=== PATIENT | male | born 1950 | race Caucasian/White ===

== ENCOUNTER 2017-01-18 07:01 | Inpatient (IN) | payer MEDICARE, OTHER ==
[2017-01-18] VITALS (36 sets, daily range): BP systolic 70–120; BP diastolic 30–62; PULSE 44–106; RESP 0–31; TEMP 92.7; Ht 170.2 cm; Wt 62.0 kg
[~2017-01-18] VITALS: Ht 170.2 cm; Wt 62.0 kg
[~2017-01-18 07:01] MED LIST: ROCURONIUM 50 MG INJ ONE; VECURONIUM 10 MG VIAL ONE
[2017-01-18] MEDS ORDERED: VECURONIUM 100 MG in DEXTROSE 5% 100 ML IV ONE (07:03)
[2017-01-18] MEDS ORDERED: PROPOFOL 100 ML IV STA (07:03)
[2017-01-18] MEDS ORDERED: ASPIRIN 300 MG SUPP PR STA (07:03)
[2017-01-18] MEDS ORDERED: SODIUM CHLORIDE 0.9% 500 ML BAG IV* STA (07:03)
[2017-01-18] MEDS ORDERED: ETOMIDATE 20 MG INJ ONE (07:20)
[2017-01-18 07:24] LABS: ADD SCAN DIFF NO
[2017-01-18 07:30] LABS: ABNORMAL IP MESSAGE 1; BASOPHIL # 0.1 10^3/ul (0.0-0.1); BASOPHILS % 0.9 % (0.0-2.0); EOSINOPHILS # 0.2 10^3/ul (0.0-0.5); EOSINOPHILS % 1.3 % (0.0-7.0); HEMATOCRIT 33.7 % (42.0-52.0); HEMOGLOBIN 10.3 g/dl (14.0-18.0); LYMPHOCYTES # 2.5 10^3/ul (0.8-2.9); LYMPHOCYTES % 19.3 % (15.0-51.0); MEAN CORPUSCULAR HGB CONC 30.6 g/dl (32.0-37.0); MEAN CORPUSCULAR VOLUME 101.5 fl (82.0-101.0); MONOCYTE # 1.1 10^3/ul (0.3-0.9); MONOCYTES % 8.4 % (0.0-11.0); NEUTROPHIL # 8.4 10^3/ul (1.6-7.5); NEUTROPHILS % 65.9 % (39.0-77.0); NUCLEATED RED BLOOD CELLS% 0.2 /100WBC (0.0-0.0); RED BLOOD COUNT 3.32 10^6/ul (4.70-6.10); RED CELL DISTRIBUTION WIDTH 21.2 % (11.5-14.5); WHITE BLOOD COUNT 12.7 10^3/ul (4.8-10.8)
[2017-01-18] MEDS ORDERED: OCULAR LUBRICANT 3.5 GM OPH OINT BOTH EYES ONE (07:30)
[2017-01-18] MEDS ORDERED: VECURONIUM 10 MG VIAL IV ONE (07:30)
[2017-01-18 07:46] LABS: INR 2.35
[2017-01-18 07:47] LABS: PARTIAL THROMBOPLASTIN TIME 49.6 Sec (25.0-35.0)
[2017-01-18 07:48] LABS: ALBUMIN 3.5 g/dl (3.3-4.9); ALBUMIN/GLOBULIN RATIO 1.09; BILIRUBIN,DIRECT 0.1 mg/dl (0.00-0.20); BILIRUBIN,INDIRECT 1.2 mg/dl (0-1.1); BILIRUBIN,TOTAL 1.3 mg/dl (0.2-1.3); CALCIUM 7.7 mg/dl (8.4-10.2); CREATININE 3.63 mg/dl (0.61-1.24); MAGNESIUM 2.6 mg/dl (1.7-2.5); PHOSPHORUS 3.5 mg/dl (2.5-4.9); POTASSIUM 3.4 mmol/L (3.5-5.1); TOTAL PROTEIN 6.7 g/dl (6.1-8.1)
[2017-01-18 08:00] LABS: TROPONIN-I 0.085 ng/ml (0.00-0.12)
[2017-01-18 08:04] LABS: AADO2 Arterial 516.4 mmHg (7.0-24.0); Allen Test ACCEPTAB; Arterial Base Excess -3.6 mmol/L (-3.0-3); Arterial COHb 1.3 % (0.0-3.0); Arterial HCO3 21.8 mmol/L (22.0-26.0); Arterial MetHb 0.4 % (0.0-1.5); Arterial Total Hemglobin 11.3 g/dl (12.0-18.0); MODE VENT - AC
--- NOTE | 2017-01-18 08:16 | RADRPT ---
PROCEDURE: Chest 1 views. CLINICAL INDICATION: Shortness of breath. Hypothermia. TECHNIQUE: AP views of the chest was obtained. COMPARISON: April 24, 2009 FINDINGS: The heart is large. Endotracheal tube has its tip approximately 3.8 cm above the sage. Left-sided dialysis catheter has its tip in the expected location of the distal superior vena cava. Median st ernotomy wires and surgical clips overlie the heart. Replacement heart valve is seen. Central pulm onary vascular congestion and interstitial prominence is seen. Retrocardiac opacity is noted. Scat tered atelectasis is noted in the right lower lobe. Osseous structures are intact. IMPRESSION: Cardiomegaly . Endotracheal tube with its tip approximately 3.8 cm above the sage. Central pulmonary vascular congestion and interstitial prominence in both lungs. Retrocardiac opacity that may reflect left lower lobe atelectasis or infiltrate combined with small pleural effusion. Scattered atelectasis in the right lower lobe. RPTAT: AA .Harsh Koenig MD, Date Time Electronically viewed and signed by .Harsh Koenig MD, on 01/18/2017 08:16 .P/
[2017-01-18 08:42] LABS: PLATELET COUNT 40 10^3/UL (140-415)
--- NOTE | 2017-01-18 08:56 | HP ---
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 admitted following VFib arrest #VFib arrest with ROSC: suspect 2/2 underlying heart disease/CAD with scar tissue into cardiac electrical system; no STEMI on EKG -hypothermia protocol started by ER, to be continued in ICU -insulin drip ordered -cardiology on consult -trending troponin per cardiology rec -TTE ordered -pulm consult given intubation #ESRD on HD: nephrology cs #cirrhosis: judicious fluids #h/o MVR previously on Coumadin -cardiology following #?aspiration pna: empiric abx DVT prophx: SQH and SCDs Critical care time: 60 minutes HPI/ROS Admit Date/Time Admit Date/Time Hx of Present Illness 66 yo M with ESRD on HD, ?CAD sp CABG, h/o MVR, cirrhosis admitted following cardiac arrest. Pt with arrest this AM, EMS called. Pt in VFib at time of ER arrival. sp 2 rounds of epi, electric intervention, converted to AFib. No evidence of STEMI on serial EKGs. Pt intubated and sedated and time of my attempted evaluation. PMH/Family/Social Past Medical History ESRD on HD h/o MVR-->mechanical valve previously on coumadin, stopped 2/2 bleeding complications HTN ?CAD sp CABG cirrhosis cb ascites requiring frequent LVPs Past Surgical History h/o CABG Social History lives in the community with Smoking Status: Unknown if ever smoked Exam/Review of Systems Vital Signs Vitals Vital Signs Date Time Temp Pulse Resp B/P Pulse Ox O2 Delivery O2 Flow Rate FiO2 01/18/17 08:23 83 16 132/51 100 Mechanical Ventilator 01/18/17 07:55 99.0 01/18/17 07:41 100 Exam Exam intubated and sedated ET tube in mouth irreg irreg +HD catheter in L chest lungs clear abd soft no rashes no le edema +sternotomy scar labs reviewed,.ChemP without sig electrolyte derangement .Initial troponin negative. Labs Result Diagram: 01/18/17 0701 01/18/17 0701 MAGALI FROST MD Jan 18, 2017 08:55
--- NOTE | 2017-01-18 08:56 | RADRPT ---
PROCEDURE: CT brain without contrast CLINICAL INDICATION: Hypothermia. Cardiac arrest. Altered mental status. TECHNIQUE: CT of the brain without contrast performed on a multidetector CT scanner, with multiplan ar reformats. One or more of the following dose reduction techniques were used: Automated exposure control, adjustment in mA and / or kV according to patient size, use of iterative reconstructive patrick hnique. CTDIvol = 45 mGy; DLP = 900 mGy-cm. COMPARISON: None available FINDINGS: No acute intracranial hemorrhage is identified. No extra-axial fluid collection is seen. There is no mass effect. No midline shift is identified. The ventricles and sulci are mildly enlarged compatible with generalized volume loss. There are mild areas of hypodensity in the periventricular - deep white matter which are nonspecific but suggestive of chronic small vessel ischemic changes. Maria-white differentiation appears preser khris. There are a few scattered peripheral bilateral cerebral calcifications. Atherosclerotic calcifications of the proximal intracranial arteries are noted. Calvarium and skull base appear intact. There is scattered bilateral ethmoid air cell mucosal thick ening and mild mucosal thickening of fluid in the right sphenoid sinus. IMPRESSION: 1. No acute intracranial pathology identified. 2. Mild generalized volume loss, with mild chronic small vessel ischemic changes. 3. Punctate cerebral calcifications, which may be post infectious/inflammatory, sequela of neurocys ticercosis. RPTAT: EE .Sumeet Case MD, MD Date Time Electronically viewed and signed by .Sumeet Case MD, on 01/18/2017 08:56 .O/
[2017-01-18] MEDS ORDERED: FAMOTIDINE 20 MG TAB PO SCH (09:00)
[2017-01-18] MEDS ORDERED: ALBUTEROL/IPRATROPIUM (NEB) 3 ML AMP NEB SCH (09:00)
[2017-01-18] MEDS ORDERED: ALBUTEROL 18 GM INHALER INH SCH (09:00)
[2017-01-18] MEDS ORDERED: MIDAZOLAM (DRIP) 50 mg/50 mL 50 ML IV SCH (09:00)
[2017-01-18] MEDS ORDERED: HYDROCODONE/APAP (5/325) TAB PO PRN (09:00)
[2017-01-18] MEDS ORDERED: ACETAMINOPHEN 650MG/20.3ML CUP PO PRN ×2 (09:00→20:00)
[2017-01-18] MEDS ORDERED: ALBUTEROL/IPRATROPIUM (NEB) 3 ML AMP NEB PRN (09:00)
[2017-01-18] MEDS ORDERED: ONDANSETRON 4 MG TAB PO PRN (09:00)
[2017-01-18] MEDS ORDERED: ENOXAPARIN 40 MG/0.4 ML SYG SC SCH (09:00)
--- NOTE | 2017-01-18 09:30 | RADRPT ---
PROCEDURE: XR Chest AP portable CLINICAL INDICATION: Post intubation TECHNIQUE: An AP portable radiograph of the chest was submitted. COMPARISON: Study done earlier on the same date FINDINGS: Support Hardware: The endotracheal tube and the left venous access catheter are stable in positionin g and now in the right jugular central venous catheter is been placed with the tip projecting to the superior vena cava. Cardiovascular: There is again evidence of a previous midline sternotomy and prosthetic valve replac ement. The heart remains moderately enlarged and the pulmonary vasculature appears congested. Lung [place]: Interstitial infiltrate is again seen extend from the prior of the regions bilaterally and there is again consolidation seen to the heart with in the left lower lobe. Pleural Spaces: Small bilateral pleural fluid accumulations are again evident but no pneumothorax is identified. Osseous Structures: The osseous structures appear intact. Soft Tissues: The soft tissues appear unremarkable. IMPRESSION: 1. The endotracheal tube and the left sided venous access catheter stable in positioning and now a been a right jugular central venous catheters been satisfactorily placed. 2. There is again evidence of a previous midline sternotomy and prosthetic aortic valve replacement with persistent moderate cardiomegaly and pulmonary vascular congestion. 3. Interstitial infiltrates suspicious for interstitial edema with persistent consolidation involvi ng the left lower lobe. 4. A small left pleural fluid accumulation is again evident and now there appears to be a small rig ht pleural fluid accumulation. No pneumothorax is identified. Physician Hernan Date Time Electronically viewed and signed by Physician Hernan on 01/18/2017 09:29 /
--- NOTE | 2017-01-18 09:31 | ERA ---
ER Documentation Chief Complaint Date/Time DATE: 01/18/17 TIME: 09:24 Chief Complaint BIB RA CARDIAC ARREST (ROSC) HPI 66-year-old male brought in by ambulance after a witnessed cardiac arrest. There was immediate bystander CPR by his family. Patient was initially in V. fib. He was shocked and went into PEA rhythm, then atrial fibrillation with return of spontaneous circulation. 2 rounds of epi were given. History is otherwise limited as the family is not here and the patient is unresponsive. ROS Limited as the patient is unconscious and intubated Allergies Allergies: Coded Allergies: Penicillins (Verified Allergy, Unknown, 01/18/17) PMhx/Soc History of Surgery: Yes (CABG, aortic valve replacement) Hx Cardiac Disorders: Yes (Hypertension, CAD) Hx Miscellaneous Medical Probl: Yes (ESRD on HD, cirrhosis) Hx Alcohol Use: No Hx Substance Use: Yes (script meds) Hx Tobacco Use: No Smoking Status: Unknown if ever smoked FmHx Family History: other (Unable to obtain) Physical Exam Vitals Vital Signs Date Time Temp Pulse Resp B/P Pulse Ox O2 Delivery O2 Flow Rate FiO2 01/18/17 11:28 90.1 66 16 113/51 100 Mechanical Ventilator 01/18/17 10:49 53 16 143/45 100 Mechanical Ventilator 01/18/17 10:29 60 27 100 70 01/18/17 10:15 60 16 132/50 100 Mechanical Ventilator 01/18/17 09:41 72 14 118/49 Mechanical Ventilator 01/18/17 09:24 76 118/49 01/18/17 09:12 98.6 79 14 118/49 100 Mechanical Ventilator 01/18/17 08:23 83 16 132/51 100 Mechanical Ventilator 01/18/17 07:55 99.0 86 16 132/51 100 Mechanical Ventilator 01/18/17 07:41 96 24 100 100 01/18/17 07:06 144 24 173/64 100 Mechanical Ventilator 01/18/17 07:03 98.3 129 44 174/64 100 Physical Exam VITAL SIGNS: GENERAL: Patient is lying on gurney and is unresponsive, cachectic, chronically ill-appearing HEAD: Head is normocephalic. No evidence of trauma. No scalp or facial swelling EYES: Pupils are unequal, right is 3 mm, left is 2 mm. They are nonreactive. Conjunctive a normal ENT: Oropharynx and nasopharynx are clear, ET tube present, poor dentition NECK: Supple. No masses, JVD noted. Left chest with HD cath RESPIRATORY: Breath sounds equal bilaterally with bagging CV: Heart sounds are present. Tachycardic, irregular rhythm. There are palpable 2+ carotid and radial pulses ABDOMEN: Soft, non-distended. Reducible umbilical hernia noted EXTREMITIES: No deformity SKIN: No jaundice. No diaphoresis NEUROLOGIC: Not alert. Grimaces when Garcia catheter placed Result Diagram: 01/18/17 0701 01/18/17 0701 Results 24 hrs Laboratory Tests Test 01/18/17 07:01 01/18/17 07:03 White Blood Count 12.710^3/ul Red Blood Count 3.3210^6/ul Hemoglobin 10.3g/dl Hematocrit 33.7% Mean Corpuscular Volume 101.5fl Mean Corpuscular Hemoglobin 31.0pg Mean Corpuscular Hemoglobin Concent 30.6g/dl Red Cell Distribution Width 21.2% Platelet Count 4010^3/UL Mean Platelet Volume fl Neutrophils % 65.9% Lymphocytes % 19.3% Monocytes % 8.4% Eosinophils % 1.3% Basophils % 0.9% Nucleated Red Blood Cells % 0.2/100WBC Neutrophils # 8.410^3/ul Lymphocytes # 2.510^3/ul Monocytes # 1.110^3/ul Eosinophils # 0.210^3/ul Basophils # 0.110^3/ul Nucleated Red Blood Cells # 0.010^3/ul Prothrombin Time 26.0Sec Prothrombin Time Ratio 2.0 INR International Normalized Ratio 2.35 Activated Partial Thromboplast Time 49.6Sec Sodium Level 144mmol/L Potassium Level 3.4mmol/L Chloride Level 102mmol/L Carbon Dioxide Level 24mmol/L Anion Gap 21 Blood Urea Nitrogen 44mg/dl Creatinine 3.63mg/dl Glucose Level 178mg/dl Calcium Level 7.7mg/dl Phosphorus Level 3.5mg/dl Magnesium Level 2.6mg/dl Total Bilirubin 1.3mg/dl Direct Bilirubin 0.10mg/dl Indirect Bilirubin 1.2mg/dl Aspartate Amino Transf (AST/SGOT) 35IU/L Alanine Aminotransferase (ALT/SGPT) 28IU/L Alkaline Phosphatase 192IU/L Troponin I 0.085ng/ml Total Protein 6.7g/dl Albumin 3.5g/dl Globulin 3.20g/dl Albumin/Globulin Ratio 1.09 Blood Gas Specimen Source Blood arterial Arterial Blood Date Drawn 01/18/2017 7:56:37 AM Arterial Blood pH (Temp corrected) 7.349 Arterial Blood pCO2 (Temp correct) 40.4mmhg Arterial Blood pO2 (Temp corrected) 156.2mmHG Arterial Blood HCO3 21.8mmol/L Arterial Blood Base Excess -3.6mmol/L Arterial Blood Oxygen Saturation 98.7mmHG Vinay Test ACCEPTAB Arterial Blood Gas Puncture Site Right Radial Arterial Blood Carboxyhemoglobin 1.3% Arterial Blood Methemoglobin 0.4% Blood Gas A-a O2 Differential 516.4mmHg Oxyhemoglobin Percent 97.0% Total Hemoglobin 11.3g/dl Blood Gas Temperature 37.0C Blood Gas Respiration Rate 14.0 Blood Gas Actual Respiration Rate 24 Blood Gas Modality VENT - AC FiO2 100.0% Blood Gas Tidal Volume 500.0mL Blood Gas Low PEEP Setting 5.0cmH2O Blood Gas Notified Whom M.D. Blood Gas Notified Time 01/18/2017 8:04:24 AM Current Medications Medications (Trade) Dose Ordered Sig/Corie Route PRN Reason Start Time Stop Time Status Last Admin Dose Admin Sodium Chloride 500 ml 500 ml ONCE STAT IV* 01/18/17 07:03 01/18/17 07:07 DC 01/18/17 07:03 Propofol (Diprivan) 100 ml @ 0 mls/hr ONCE STAT IV 01/18/17 07:03 01/18/17 07:07 DC 01/18/17 08:09 Aspirin (Aspirin) 300 mg ONCE STAT SC 01/18/17 07:03 01/18/17 07:07 DC 01/18/17 08:55 Eye Lubricant (Akwa Oint) 1 applic ONCE ONCE BOTH EYES 01/18/17 07:30 01/18/17 07:31 DC Vecuronium [place] 7 mg 7 mg ONCE ONCE IV 01/18/17 07:30 01/18/17 07:31 DC 01/18/17 07:30 Vecuronium [place]/Dextrose (Norcuron/D5W) 100 ml @ 0 mls/hr Q0M ONCE IV 01/18/17 07:03 01/18/17 07:07 DC 01/18/17 08:32 Etomidate (Amidate) 20 mg STK-MED ONCE .ROUTE 01/18/17 07:20 01/18/17 07:21 DC Ondansetron HCl (Zofran Tab) 4 mg Q6H PRN PO NAUSEA AND/OR VOMITING 01/18/17 09:00 Albuterol/ Ipratropium (Duoneb) 3 ml Q4H RESP THERAPY NEB 01/18/17 09:00 01/18/17 09:54 DC Albuterol/ Ipratropium (Duoneb) 3 ml Q2H RESP THERAPY PRN NEB SHORTNESS OF BREATH 01/18/17 09:00 Albuterol (Ventolin Hfa) 4 puff Q4H RESP THERAPY INH 01/18/17 09:00 01/18/17 09:22 DC Acetaminophen (Tylenol Liquid) 650 mg Q6H PRN PO PAIN LEVEL 1-3 OR FEVER 01/18/17 09:00 Acetaminophen/ Hydrocodone Bitart ([place] (5/325)) 1 tab Q6H PRN PO PAIN LEVEL 4-6 01/18/17 09:00 Famotidine (Pepcid) 20 mg DAILY PO 01/18/17 09:00 Enoxaparin Sodium 40 mg 40 mg DAILY SC 01/18/17 09:00 01/18/17 09:23 DC Propofol 100 ml @ 2.1 mls/hr PER PROTOCOL IV 01/18/17 09:00 Midazolam HCl (Versed) 50 ml @ 1 mls/hr PER PROTOCOL IV 01/18/17 09:00 Heparin Sodium (Porcine) (Heparin (5000 Units/0.5 ml)) 5,000 unit Q12 SC 01/18/17 10:00 01/18/17 10:47 DC Albuterol (Ventolin Hfa) 4 puff Q2H RESP THERAPY PRN INH wheezing 01/18/17 10:00 Carvedilol (Coreg) 3.125 mg BID PO 01/18/17 11:00 Procedures/MDM EKG #1: Rate/Rhythm: Wide-complex rhythm at 142 bpm QRS, ST, T-waves: Left axis deviation, right bundle branch block, nonspecific ST, T changes Impression: No evidence of acute ischemia, wide-complex tachycardia EKG #2: Rate/Rhythm: Atrial fibrillation with RVR at 112 bpm QRS, ST, T-waves: Left axis deviation, nonspecific intraventricular block, nonspecific T-wave abnormalities Impression: No evidence of STEMI, atrial fibrillation with RVR EKG #3: Rate/Rhythm: A. fib at 80 bpm QRS, ST, T-waves: Left axis deviation, nonspecific intraventricular block, lateral nonspecific T-wave abnormality Impression: No evidence STEMI, A. fib EKG #4: Rate/Rhythm: Normal sinus rhythm at 74 bpm QRS, ST, T-waves: Left axis deviation, nonspecific intraventricular block, lateral T-wave abnormality Impression: No evidence of arrhythmia, no STEMI CT head shows no acute abnormalities, chronic changes seen Postintubation chest x-ray: IMPRESSION: Cardiomegaly . Endotracheal tube with its tip approximately 3.8 cm above the sage. Central pulmonary vascular congestion and interstitial prominence in both lungs. Retrocardiac opacity that may reflect left lower lobe atelectasis or infiltrate combined with small pleural effusion. Scattered atelectasis in the right lower lobe. .Harsh oKenig MD, MD Date Time Electronically viewed and signed by .Harsh Koenig MD, MD on 01/18/2017 08:16 Post central line chest x-ray: IMPRESSION: 1. The endotracheal tube and the left sided venous access catheter stable in positioning and now a been a right jugular central venous catheters been satisfactorily placed. 2. There is again evidence of a previous midline sternotomy and prosthetic aortic valve replacement with persistent moderate cardiomegaly and pulmonary vascular congestion. 3. Interstitial infiltrates suspicious for interstitial edema with persistent consolidation involving the left lower lobe. 4. A small left pleural fluid accumulation is again evident and now there appears to be a small right pleural fluid accumulation. No pneumothorax is identified. Physician Hernan Date Time Electronically viewed and signed by Physician Hernan on 01/18/2017 09:29 Labs CBC: Mild leukocytosis, anemia, thrombocytopenia CMP: Mild hypokalemia, findings of end-stage renal disease Troponin within normal limits UA: no evidence of infection Endotracheal Intubation by me: Pre assessment performed. See preceding note for details. Pre-oxygenation performed with 100% oxygen RSI: Performed w/o complication or hypoxic events. Medications as ordered. Blade: Glidescope 4 ET Tube: 23 cm Depth: 7.5 cm at the lip Intubation confirmed by colorimetric CO2, equal breath sounds, quiet over the stomach. Chest X-ray 1V Interpreted by me: 3.8 cm above the sage ET tube. Normal soft tissue, No pneumothorax. MDM Patient is presenting after a V. fib arrest with ROSC. After he arrived, he had pulses. His blood pressure was normal but he was tachycardic. Initially his rhythm was a wide-complex rhythm which converted without intervention to A. fib then normal sinus rhythm. IV fluids were started. I checked his ET tube placed prior to arrival and the balloon was above the vocal cords. He had to be reintubated. He never became hypoxic while here. The etiology of his cardiac arrest is unclear at this time. All reversible causes were considered. There are no significant electrolyte abnormalities. there is no evidence of STEMI but he may have ACS nonetheless. I have a lower suspicion for aortic dissection, septic shock, or pulmonary embolism, but these remain on the differential. Rectal aspirin given. Hypothermia protocol was started. The patient was placed on propofol and vecuronium. I spoke with the admitting team , and they consulted cardiology and nephrology. Family was updated on the patient's condition and plan. Critical Care Time: 40 minutes Treatments/Evaluations: Close monitoring and treatment of unstable vital signs, cardiorespiratory, and neurologic status, while maintaining tight balance of fluid, respiratory, and cardiac interventions. This time includes discussing the case with the patient and the patients family. This time does not include all procedures stated elsewhere in this record. This time also includes reviewing old records, labs and radiological studies. This time includes examining and re-examining the patient. Additionally, this time also includes arranging care with admitting and consulting physicians. Accepting Care Team: Current data and ongoing care discussed. Time: Time of admission Primary Provider: Gisele Campa Consulting: Arnie Outstanding Data: none Departure Diagnosis: Primary Impression: Cardiac arrest Additional Impression: End stage renal disease Condition: Critical IRAJ VALE MD Jan 18, 2017 09:31
[2017-01-18] MEDS ORDERED: HEPARIN 5,000 UNIT/0.5 ML VIAL SC SCH (10:00)
[2017-01-18] MEDS ORDERED: ALBUTEROL 18 GM INHALER INH PRN (10:00)
--- NOTE | 2017-01-18 10:48 | CONS ---
Date/Time of Note Date/Time of Note DATE: 01/18/17 TIME: 10:23 Assessment/Plan Assessment/Plan Chief Complaint/Hosp Course VF cardiac arrest: No STEMI by EKG. He did not have CAD as of 2008 but certainly this could have changed. Unclear if he has a cardiomyopathy. If he does, he may have had VT which degenerated to VF. His initial EKG may have been MMVT. He is also in mild heart failure by CXR. He is currently on hypothermic protocol and there is no emergent reason for cardiac cath. Once he completes hypothermia and if he wakes up, he will need a cardiac cath for evaluation and eventually an ICD. ?MMVT: first EKG is concerning for VT. Options are limited with his liver cirrhosis and both amio and lidocaine are not great options. Acute on chronic ?systolic vs diastolic heart failure Mechanical AVR 2007 and 2008: apparently not on coumadin due to bleeding. He is autoanticoagulated at this time with INR 2.3 ESRD on HD Liver cirrhosis from presumed alcohol Thrombocytopenia Coagulopathy: INR 2.3 -if recurrent VT/VF, may consider lidocaine but also poor option with cirrhosis -echo -trend trops -already received ASA. If trops negative, may need to hold further doses with coagulopathy and thrombocytopenia -low dose coreg as bradycardic already on hypothermia -no statin yet with cirrhosis -further management plan based on improvement in mental status Problems: Consultation Date/Type/Reason Admit Date/Time Date of Consultation: Jan 18, 2017 Type of Consultation: Cardiology Reason for Consultation Cardiac arrest Referring Provider: MAGALI FROST MD Hx of Present Illness 66 yo M with a h/o mechanical AVR 2007 and redo 2008 for endocarditis, ESRD on HD, ?alcoholic cirrhosis, thrombocytopenia,active tobacco use, who presented with cardiac arrest. The pt's heard a loud thump which woke her up and when she went to the living room she saw her on the coffee table. Her son began CPR as he was unresponsive. When paramedics came, he was found tyo be in Vfib and was defibrillated. He was given two rounds of epi and eventually had ROSC. In the ER he had a wide complex tachycardia then converted to afib with controlled rates. He is currently on hypothermic protocol as he did not recover his mental status. The tells me that he was "not feeling well" yesterday but that he always says that so they assumed nothing was new. He had not complained of chest pain or SOB. She also tells me that he has had two cardiac caths which both showed normal coronaries (last was 2008). They are unaware of his EF. The pt is not on coumadin despite his mechanical valve as he has had bleeding in the past. INR here is 2.3 likely from cirrhosis unable to obtain Past Medical History per hPI Social History Smoking Status: Unknown if ever smoked Exam/Review of Systems Vital Signs Vitals Vital Signs Date Time Temp Pulse Resp B/P Pulse Ox O2 Delivery O2 Flow Rate FiO2 01/18/17 09:41 72 14 118/49 Mechanical Ventilator 01/18/17 09:12 98.6 100 01/18/17 07:41 100 Exam Constitutional: No alert Head: normocephalic Neck: No jvd (unable to assess) Respiratory: diminished breath sounds, No clear to auscultation Cardiovascular: edema (1+), other (mechanical S2), systolic murmur (2/6 NISREEN), No regular rate and rhythm (irregular) Gastrointestinal: soft, No distended Extremities: cyanosis, other (cool from hypothermia ) Neurological: No nl mental status, No nl speech Results EKG on presentation: wide complex RBBB rhythm at ~150 bpm. The QRS morphology is different form his baseline which is a nonspecific conduction delay Repeat EKGs show afib with RVR and afib with controlled rates. nonspecific IVCD , no ST elevation Result Diagram: 01/18/17 0701/18/17 0701 Results 24 hrs Laboratory Tests Test 01/18/17 07:01 01/18/17 07:03 White Blood Count 12.7 H Red Blood Count 3.32 L Hemoglobin 10.3 L Hematocrit 33.7 L Mean Corpuscular Volume 101.5 H Mean Corpuscular Hemoglobin 31.0 Mean Corpuscular Hemoglobin Concent 30.6 L Red Cell Distribution Width 21.2 H Platelet Count 40 L Mean Platelet Volume Neutrophils % 65.9 Lymphocytes % 19.3 Monocytes % 8.4 Eosinophils % 1.3 Basophils % 0.9 Nucleated Red Blood Cells % 0.2 H Neutrophils # 8.4 H Lymphocytes # 2.5 Monocytes # 1.1 H Eosinophils # 0.2 Basophils # 0.1 Nucleated Red Blood Cells # 0.0 Prothrombin Time 26.0 H Prothrombin Time Ratio 2.0 INR International Normalized Ratio 2.35 Activated Partial Thromboplast Time 49.6 H Sodium Level 144 Potassium Level 3.4 L Chloride Level 102 Carbon Dioxide Level 24 Anion Gap 21 H Blood Urea Nitrogen 44 H Creatinine 3.63 H Glucose Level 178 Calcium Level 7.7 L Phosphorus Level 3.5 Magnesium Level 2.6 H Total Bilirubin 1.3 Direct Bilirubin 0.10 Indirect Bilirubin 1.2 H Aspartate Amino Transf (AST/SGOT) 35 Alanine Aminotransferase (ALT/SGPT) 28 Alkaline Phosphatase 192 H Troponin I 0.085 Total Protein 6.7 Albumin 3.5 Globulin 3.20 Albumin/Globulin Ratio 1.09 Blood Gas Specimen Source Blood arterial Arterial Blood Date Drawn 01/18/2017 7:56:37 AM Arterial Blood pH (Temp corrected) 7.349 L Arterial Blood pCO2 (Temp correct) 40.4 Arterial Blood pO2 (Temp corrected) 156.2 H Arterial Blood HCO3 21.8 L Arterial Blood Base Excess -3.6 L Arterial Blood Oxygen Saturation 98.7 H Vinay Test ACCEPTAB Arterial Blood Gas Puncture Site Right Radial Arterial Blood Carboxyhemoglobin 1.3 Arterial Blood Methemoglobin 0.4 Blood Gas A-a O2 Differential 516.4 H Oxyhemoglobin Percent 97.0 Total Hemoglobin 11.3 L Blood Gas Temperature 37.0 Blood Gas Respiration Rate 14.0 Blood Gas Actual Respiration Rate 24 Blood Gas Modality VENT - AC FiO2 100.0 Blood Gas Tidal Volume 500.0 Blood Gas Low PEEP Setting 5.0 Blood Gas Notified Whom M.D. Blood Gas Notified Time 01/18/2017 8:04:24 AM Medications Medications Current Medications Ondansetron HCl (Zofran Tab) 4 mg Q6H PRN PO NAUSEA AND/OR VOMITING; Start at 09:00 Acetaminophen (Tylenol Liquid) 650 mg Q6H PRN PO PAIN LEVEL 1-3 OR FEVER; Start 01/18/17 at 09:00 Acetaminophen/ Hydrocodone Bitart ([place] (5/325)) 1 tab Q6H PRN PO PAIN LEVEL 4 -6; Start 01/18/17 at 09:00 Famotidine (Pepcid) 20 mg DAILY PO ; Start 01/18/17 at 09:00 Heparin Sodium (Porcine) (Heparin (5000 Units/0.5 ml)) 5,000 unit Q12 SC ; Start 01/18/17 at 10:00 SILVERIO MCMAHAN Jan 18, 2017 10:35
--- NOTE | 2017-01-18 12:41 | CONS ---
Date/Time of Note Date/Time of Note DATE: 01/18/17 TIME: 12:37 Assessment/Plan Assessment/Plan Chief Complaint/Hosp Course ESRD on hd- with pulm edema on cxr. likely cardiogenic. unclear if producing urine will dialyze cautiously. hd arranged in advance. monitor with possible daily hd. all meds dosed ok. Resp failure: on vent. pulm fu VF cardiac arrest: No STEMI by EKG. He did not have CAD as of 2008 but certainly this could have changed. Unclear if he has a cardiomyopathy. If he does, he may have had VT which degenerated to VF. His initial EKG may have been MMVT. He is also in mild heart failure by CXR. He is currently on hypothermic protocol and there is no emergent reason for cardiac cath. Once he completes hypothermia and if he wakes up, he will need a cardiac cath for evaluation and eventually an ICD. ?MMVT: first EKG is concerning for VT. Options are limited with his liver cirrhosis and both amio and lidocaine are not great options. Acute on chronic ?systolic vs diastolic heart failure Mechanical AVR 2007 and 2008: apparently not on coumadin due to bleeding. He is autoanticoagulated at this time with INR 2.3 Liver cirrhosis from presumed alcohol Thrombocytopenia Coagulopathy: INR 2.3 Problems: Consultation Date/Type/Reason Admit Date/Time Hx of Present Illness 66-year-old male brought in by ambulance after a witnessed cardiac arrest. There was immediate bystander CPR by his family. Patient was initially in V. fib. He was shocked and went into PEA rhythm, then atrial fibrillation with return of spontaneous circulation. 2 rounds of epi were given. History is otherwise limited as the family is not here and the patient is unresponsive. Noted that last had hd yesterday. Still in ED awaiting transfer to icu. noted Harry fernandes. ROS Limited as the patient is unconscious and intubated Allergies Allergies: Coded Allergies: Penicillins (Verified Allergy, Unknown, 01/18/17) PMhx/Soc History of Surgery: Yes (CABG, aortic valve replacement) Hx Cardiac Disorders: Yes (Hypertension, CAD) Hx Miscellaneous Medical Probl: Yes (ESRD on HD, cirrhosis) Hx Alcohol Use: No Hx Substance Use: Yes (script meds) Hx Tobacco Use: No Smoking Status: Unknown if ever smoked FmHx Family History: other (Unable to obtain) Social History Smoking Status: Unknown if ever smoked Exam/Review of Systems Vital Signs Vitals Vital Signs Date Time Temp Pulse Resp B/P Pulse Ox O2 Delivery O2 Flow Rate FiO2 01/18/17 12:24 56 16 131/46 100 Mechanical Ventilator 01/18/17 11:28 90.1 01/18/17 10:29 70 Results Result Diagram: 01/18/17 0701 01/18/17 0701 Results 24 hrs Laboratory Tests Test 01/18/17 07:01 01/18/17 07:03 White Blood Count 12.7 H Red Blood Count 3.32 L Hemoglobin 10.3 L Hematocrit 33.7 L Mean Corpuscular Volume 101.5 H Mean Corpuscular Hemoglobin 31.0 Mean Corpuscular Hemoglobin Concent 30.6 L Red Cell Distribution Width 21.2 H Platelet Count 40 L Mean Platelet Volume Neutrophils % 65.9 Lymphocytes % 19.3 Monocytes % 8.4 Eosinophils % 1.3 Basophils % 0.9 Nucleated Red Blood Cells % 0.2 H Neutrophils # 8.4 H Lymphocytes # 2.5 Monocytes # 1.1 H Eosinophils # 0.2 Basophils # 0.1 Nucleated Red Blood Cells # 0.0 Prothrombin Time 26.0 H Prothrombin Time Ratio 2.0 INR International Normalized Ratio 2.35 Activated Partial Thromboplast Time 49.6 H Sodium Level 144 Potassium Level 3.4 L Chloride Level 102 Carbon Dioxide Level 24 Anion Gap 21 H Blood Urea Nitrogen 44 H Creatinine 3.63 H Glucose Level 178 Calcium Level 7.7 L Phosphorus Level 3.5 Magnesium Level 2.6 H Total Bilirubin 1.3 Direct Bilirubin 0.10 Indirect Bilirubin 1.2 H Aspartate Amino Transf (AST/SGOT) 35 Alanine Aminotransferase (ALT/SGPT) 28 Alkaline Phosphatase 192 H Troponin I 0.085 Total Protein 6.7 Albumin 3.5 Globulin 3.20 Albumin/Globulin Ratio 1.09 Blood Gas Specimen Source Blood arterial Arterial Blood Date Drawn 01/18/2017 7:56:37 AM Arterial Blood pH (Temp corrected) 7.349 L Arterial Blood pCO2 (Temp correct) 40.4 Arterial Blood pO2 (Temp corrected) 156.2 H Arterial Blood HCO3 21.8 L Arterial Blood Base Excess -3.6 L Arterial Blood Oxygen Saturation 98.7 H Vinay Test ACCEPTAB Arterial Blood Gas Puncture Site Right Radial Arterial Blood Carboxyhemoglobin 1.3 Arterial Blood Methemoglobin 0.4 Blood Gas A-a O2 Differential 516.4 H Oxyhemoglobin Percent 97.0 Total Hemoglobin 11.3 L Blood Gas Temperature 37.0 Blood Gas Respiration Rate 14.0 Blood Gas Actual Respiration Rate 24 Blood Gas Modality VENT - AC FiO2 100.0 Blood Gas Tidal Volume 500.0 Blood Gas Low PEEP Setting 5.0 Blood Gas Notified Whom M.D. Blood Gas Notified Time 01/18/2017 8:04:24 AM Medications Medications Current Medications Ondansetron HCl (Zofran Tab) 4 mg Q6H PRN PO NAUSEA AND/OR VOMITING; Start at 09:00 Acetaminophen (Tylenol Liquid) 650 mg Q6H PRN PO PAIN LEVEL 1-3 OR FEVER; Start 01/18/17 at 09:00 Acetaminophen/ Hydrocodone Bitart ([place] (5/325)) 1 tab Q6H PRN PO PAIN LEVEL 4 -6; Start 01/18/17 at 09:00 Famotidine (Pepcid) 20 mg DAILY PO ; Start 01/18/17 at 09:00 Carvedilol (Coreg) 3.125 mg BID PO ; Start 01/18/17 at 11:00 ANISA KAYE MD Jan 18, 2017 12:41
[2017-01-18 13:29] LABS: ETHANOL < 10.0 mg/dl
--- NOTE | 2017-01-18 13:36 | CONS ---
Date/Time of Note Date/Time of Note DATE: 01/18/17 TIME: 13:23 Assessment/Plan Assessment/Plan Chief Complaint/Hosp Course Assessment /plan 1. Cardiopulmonary arrest likely primary cardiac event. History of aortic valve replacement unclear with a history of ischemic heart disease. Currently not on anticoagulation. -Echocardiogram -Cardiology recommendations -May need dopamine infusion for bradycardia 2. Hypothermia protocol following cardiopulmonary arrest -Continue sedation and paralysis -Insulin drip 3. Hypoxemic respiratory failure secondary to above -Continue mechanical ventilation -Bronchodilators 4. Likely aspiration pneumonia -Broad-spectrum antibiotics 5. Coagulopathy -Questionable underlying cirrhosis incomplete data 6. Encephalopathy, possible anoxic brain injury following cardiac arrest - continue hypothermia protocol -EEG and neuro evaluation if no significant neurological changes after 48 hours 7. End-stage renal failure on hemodialysis -Nephrology consultation -Hemodialysis as tolerated 8. DVT and GI prophylaxis Problems: Consultation Date/Type/Reason Admit Date/Time Date of Consultation: Jan 18, 2017 Type of Consultation: Pulmonary ICU Reason for Consultation Cardiac arrest Hx of Present Illness 66-year-old gentleman with history of mechanical aortic valve replacement with redo in 2008 secondary to endocarditis found unresponsive by today. Patient had witnessed collapse. Son initiated CPR and in the field and 911 was called. On arrival patient was found to be in ventricular fibrillation requiring defibrillation and epinephrine with spontaneous return of circulation. He has had several arrhythmias in the emergency room including wide complex tachycardia and atrial fibrillation now appears to be in bradycardia on hypothermia protocol. In addition he has a history of EtOH use.Per chart patient has a history of end- stage renal failure on hemodialysis Currently unable to perform Past Medical History End-stage renal failure on hemodialysis History of aortic valve replacement with redo secondary to endocarditis Cirrhosis likely secondary to EtOH Thrombocytopenia. Past Surgical History As above. Social History Smoking Status: Unknown if ever smoked Exam/Review of Systems Vital Signs Vitals Vital Signs Date Time Temp Pulse Resp B/P Pulse Ox O2 Delivery O2 Flow Rate FiO2 01/18/17 12:48 53 16 131/40 100 Mechanical Ventilator 01/18/17 11:28 90.1 01/18/17 10:29 70 Exam GENERAL: Chronically ill-appearing on immediate gentleman intubated on mechanical ventilation currently on vecuronium and propofol VITAL SIGNS: per chart NECK: Supple. No JVD or lymphadenopathy. CARDIAC EXAM: S1, S2. No added sounds or murmurs. CHEST: clear bilaterally, No added sounds, rales or wheezes ABDOMEN: Soft, nontender. No guarding or rebound. EXTREMITIES: No cyanosis, clubbing or edema. NEUROLOGIC: unable to assess Results Chest x-ray pulmonary edema. Result Diagram: 01/18/17 0701/18/17 0701 Results 24 hrs Laboratory Tests Test 01/18/17 07:01 01/18/17 07:03 White Blood Count 12.7 H Red Blood Count 3.32 L Hemoglobin 10.3 L Hematocrit 33.7 L Mean Corpuscular Volume 101.5 H Mean Corpuscular Hemoglobin 31.0 Mean Corpuscular Hemoglobin Concent 30.6 L Red Cell Distribution Width 21.2 H Platelet Count 40 L Mean Platelet Volume Neutrophils % 65.9 Lymphocytes % 19.3 Monocytes % 8.4 Eosinophils % 1.3 Basophils % 0.9 Nucleated Red Blood Cells % 0.2 H Neutrophils # 8.4 H Lymphocytes # 2.5 Monocytes # 1.1 H Eosinophils # 0.2 Basophils # 0.1 Nucleated Red Blood Cells # 0.0 Prothrombin Time 26.0 H Prothrombin Time Ratio 2.0 INR International Normalized Ratio 2.35 Activated Partial Thromboplast Time 49.6 H Sodium Level 144 Potassium Level 3.4 L Chloride Level 102 Carbon Dioxide Level 24 Anion Gap 21 H Blood Urea Nitrogen 44 H Creatinine 3.63 H Glucose Level 178 Calcium Level 7.7 L Phosphorus Level 3.5 Magnesium Level 2.6 H Total Bilirubin 1.3 Direct Bilirubin 0.10 Indirect Bilirubin 1.2 H Aspartate Amino Transf (AST/SGOT) 35 Alanine Aminotransferase (ALT/SGPT) 28 Alkaline Phosphatase 192 H Troponin I 0.085 Total Protein 6.7 Albumin 3.5 Globulin 3.20 Albumin/Globulin Ratio 1.09 Blood Gas Specimen Source Blood arterial Arterial Blood Date Drawn 01/18/2017 7:56:37 AM Arterial Blood pH (Temp corrected) 7.349 L Arterial Blood pCO2 (Temp correct) 40.4 Arterial Blood pO2 (Temp corrected) 156.2 H Arterial Blood HCO3 21.8 L Arterial Blood Base Excess -3.6 L Arterial Blood Oxygen Saturation 98.7 H Vinay Test ACCEPTAB Arterial Blood Gas Puncture Site Right Radial Arterial Blood Carboxyhemoglobin 1.3 Arterial Blood Methemoglobin 0.4 Blood Gas A-a O2 Differential 516.4 H Oxyhemoglobin Percent 97.0 Total Hemoglobin 11.3 L Blood Gas Temperature 37.0 Blood Gas Respiration Rate 14.0 Blood Gas Actual Respiration Rate 24 Blood Gas Modality VENT - AC FiO2 100.0 Blood Gas Tidal Volume 500.0 Blood Gas Low PEEP Setting 5.0 Blood Gas Notified Whom [email or web address] Blood Gas Notified Time 01/18/2017 8:04:24 AM Medications Medications Current Medications Ondansetron HCl (Zofran Tab) 4 mg Q6H PRN PO NAUSEA AND/OR VOMITING; Start at 09:00 Acetaminophen (Tylenol Liquid) 650 mg Q6H PRN PO PAIN LEVEL 1-3 OR FEVER; Start 01/18/17 at 09:00 Acetaminophen/ Hydrocodone Bitart ([place] (5/325)) 1 tab Q6H PRN PO PAIN LEVEL 4 -6; Start 01/18/17 at 09:00 Famotidine (Pepcid) 20 mg DAILY PO ; Start 01/18/17 at 09:00 Carvedilol (Coreg) 3.125 mg BID PO ; Start 01/18/17 at 11:00 AVIVA VILLEGAS MD[facility] Jan 18, 2017 13:33
[2017-01-18] MEDS ORDERED: PIPER-TAZO 2.25 GM (PMX) 50 ML IVPB SCH (14:00)
[2017-01-18 14:04] LABS: ACETONE NEGATIVE (NEGATIVE)
[2017-01-18 14:08] LABS: CK-MB 3.92 ng/ml (0.0-2.4); TROPONIN-I 0.254 ng/ml (0.00-0.12)
[2017-01-18] MEDS ORDERED: Treatment of Hypoglycemia: XX SCH (18:30)
[2017-01-18] MEDS ORDERED: DEXTROSE 50% 50 ML SYRINGE IV PRN ×5 (18:30→20:00)
[2017-01-18] MEDS ORDERED: Discontinue all previous diabetes medication and insulin orders. XX ONE (18:30)
[2017-01-18 18:46] LABS: AADO2 Arterial 255.1 mmHg (7.0-24.0); Allen Test ACCEPTAB; Arterial Base Excess 3.3 mmol/L (-3.0-3); Arterial COHb 0.1 % (0.0-3.0); Arterial Fraction of Oxyhgb 95.2 % (93.0-99.0); Arterial HCO3 28.7 mmol/L (22.0-26.0); Arterial MetHb 0.3 % (0.0-1.5); MODE VENT - AC
[2017-01-18] MEDS ORDERED: DOPamine-D5W 1.6 MG/ML 250 ML ONE (18:51)
[2017-01-18] MEDS: ACCU-CHEK XX SCH ×10 (18:53→23:30)
[2017-01-18] MEDS ORDERED: GLUCOSE GEL 15 GRAM TUBE PO PRN ×2 (19:00)
[2017-01-18] MEDS ORDERED: GLUCOSE GEL 15 GRAM TUBE BUCCAL PRN (19:00)
[2017-01-18] MEDS ORDERED: NORepinephrine 32 MG in DEXTROSE 5% 218 ML IV SCH (19:00)
[2017-01-18] MEDS ORDERED: GLUCAGON 1 MG INJ IM PRN (19:00)
[2017-01-18 19:25] LABS: ADD SCAN DIFF NO
[2017-01-18 19:31] LABS: ABNORMAL IP MESSAGE 1; HEMATOCRIT 32.9 % (42.0-52.0); HEMOGLOBIN 10.8 g/dl (14.0-18.0); MEAN CORPUSCULAR HEMOGLOBIN 31.5 pg (29.0-33.0); MEAN CORPUSCULAR HGB CONC 32.8 g/dl (32.0-37.0); MEAN CORPUSCULAR VOLUME 95.9 fl (82.0-101.0); RED BLOOD COUNT 3.43 10^6/ul (4.70-6.10); RED CELL DISTRIBUTION WIDTH 20.9 % (11.5-14.5)
[2017-01-18] MEDS ORDERED: VECURONIUM 100 MG in DEXTROSE 5% 100 ML IV SCH (19:35)
[2017-01-18 19:46] LABS: INR 2.43; PROTIME 26.7 Sec (12.2-14.2); PT RATIO 2.1
[2017-01-18 19:47] LABS: PARTIAL THROMBOPLASTIN TIME 45.6 Sec (25.0-35.0)
[2017-01-18 19:50] LABS: CALCIUM 7.7 mg/dl (8.4-10.2); CREATININE 2.26 mg/dl (0.61-1.24); MAGNESIUM 2.1 mg/dl (1.7-2.5); PHOSPHORUS 1.3 mg/dl (2.5-4.9)
[2017-01-18 19:54] LABS: EOSINOPHILS # 0.1 10^3/ul (0.0-0.5); LYMPHOCYTES # 0.5 10^3/ul (0.8-2.9); MONOCYTE # 0.1 10^3/ul (0.3-0.9); NEUTROPHIL # 6.2 10^3/ul (1.6-7.5)
[2017-01-18 19:58] LABS: PLATELET ESTIMATE PLT APPEAR DECREASED; POTASSIUM 2.6 mmol/L (3.5-5.1)
[2017-01-18] MEDS ORDERED: MEPERIDINE 25 MG INJ IV PRN ×2 (20:00)
[2017-01-18] MEDS ORDERED: ACETAMINOPHEN 650 MG SUPP PR PRN (20:00)
[2017-01-18] MEDS: DOPamine-D5W 1.6 MG/ML 250 ML IV SCH (20:00)
[2017-01-18] MEDS ORDERED: INSULIN HUMAN REGULAR 100 UNIT in SOD CHLORIDE 0.9% 99 ML IV SCH (20:00)
[2017-01-18 20:07] LABS: CK-MB 5.72 ng/ml (0.0-2.4); TROPONIN-I 0.273 ng/ml (0.00-0.12)
[2017-01-18] MEDS: OCULAR LUBRICANT 3.5 GM OPH OINT BOTH EYES SCH (20:07)
[2017-01-18] MEDS: SOD CHLORIDE 0.9% 1,000 ML IV SCH (20:07)
[2017-01-18] MEDS: LEVOFLOXACIN 750MG/D5W (PMX) 150 ML IVPB SCH (20:38)
[2017-01-18] MEDS: POTASSIUM CHLORIDE 250 ML IVPB SCH (21:07)
[2017-01-19] VITALS (102 sets, daily range): BP systolic 82–145; BP diastolic 38–69; PULSE 75–113; RESP 12–25
[2017-01-19] MEDS: OCULAR LUBRICANT 3.5 GM OPH OINT BOTH EYES SCH ×4 (00:47→18:00)
[2017-01-19] MEDS: ARTIFICIAL TEARS 15 ML OPH BOTH EYES SCH ×4 (00:47→18:00)
[2017-01-19] MEDS: PROPOFOL 100 ML IV SCH ×2 (00:47→20:12)
[2017-01-19] MEDS: ACCU-CHEK XX SCH ×32 (00:48→23:00)
[2017-01-19] MEDS: POTASSIUM CHLORIDE 250 ML IVPB SCH (01:10)
[2017-01-19 01:11] LABS: ADD SCAN DIFF NO
[2017-01-19 01:13] LABS: ABNORMAL IP MESSAGE 1; BASOPHIL # 0.1 10^3/ul (0.0-0.1); BASOPHILS % 0.3 % (0.0-2.0); EOSINOPHILS % 0.1 % (0.0-7.0); HEMATOCRIT 38.9 % (42.0-52.0); HEMOGLOBIN 12.5 g/dl (14.0-18.0); LYMPHOCYTES # 0.3 10^3/ul (0.8-2.9); LYMPHOCYTES % 1.7 % (15.0-51.0); MEAN CORPUSCULAR HEMOGLOBIN 31.3 pg (29.0-33.0); MEAN CORPUSCULAR HGB CONC 32.1 g/dl (32.0-37.0); MEAN CORPUSCULAR VOLUME 97.5 fl (82.0-101.0); MONOCYTE # 0.8 10^3/ul (0.3-0.9); MONOCYTES % 4.5 % (0.0-11.0); NEUTROPHIL # 16.4 10^3/ul (1.6-7.5); NEUTROPHILS % 92.9 % (39.0-77.0); RED BLOOD COUNT 3.99 10^6/ul (4.70-6.10); RED CELL DISTRIBUTION WIDTH 21.3 % (11.5-14.5); WHITE BLOOD COUNT 17.6 10^3/ul (4.8-10.8)
[2017-01-19 01:29] LABS: PLATELET COUNT 63 10^3/UL (140-415)
[2017-01-19 01:31] LABS: INR 2.27; PROTIME 25.3 Sec (12.2-14.2)
[2017-01-19 01:32] LABS: PARTIAL THROMBOPLASTIN TIME 42.8 Sec (25.0-35.0)
[2017-01-19 01:53] LABS: CK-MB 6.41 ng/ml (0.0-2.4); TROPONIN-I 0.218 ng/ml (0.00-0.12)
[2017-01-19 05:57] LABS: ADD SCAN DIFF NO
[2017-01-19 06:10] LABS: ABNORMAL IP MESSAGE 1; BASOPHIL # 0.1 10^3/ul (0.0-0.1); BASOPHILS % 0.2 % (0.0-2.0); HEMATOCRIT 38.9 % (42.0-52.0); HEMOGLOBIN 12.5 g/dl (14.0-18.0); LYMPHOCYTES # 0.3 10^3/ul (0.8-2.9); LYMPHOCYTES % 1.1 % (15.0-51.0); MEAN CORPUSCULAR HEMOGLOBIN 31.5 pg (29.0-33.0); MEAN CORPUSCULAR HGB CONC 32.1 g/dl (32.0-37.0); MONOCYTE # 0.7 10^3/ul (0.3-0.9); MONOCYTES % 3.2 % (0.0-11.0); NEUTROPHIL # 21.9 10^3/ul (1.6-7.5); NEUTROPHILS % 94.9 % (39.0-77.0); RED BLOOD COUNT 3.97 10^6/ul (4.70-6.10); RED CELL DISTRIBUTION WIDTH 21.2 % (11.5-14.5); WHITE BLOOD COUNT 23.1 10^3/ul (4.8-10.8)
[2017-01-19 06:12] LABS: CALCIUM 7.5 mg/dl (8.4-10.2); CREATININE 2.7 mg/dl (0.61-1.24); INR 2.08; INR 2.15; MAGNESIUM 2.2 mg/dl (1.7-2.5); PARTIAL THROMBOPLASTIN TIME 42.2 Sec (25.0-35.0); PHOSPHORUS 2.3 mg/dl (2.5-4.9); POTASSIUM 4.5 mmol/L (3.5-5.1); PROTIME 23.6 Sec (12.2-14.2); PROTIME 24.2 Sec (12.2-14.2); PT RATIO 1.8; PT RATIO 1.9
[2017-01-19 06:13] LABS: PARTIAL THROMBOPLASTIN TIME 41.1 Sec (25.0-35.0); THROMBIN TIME 18.3 SEC (13.8-19.1)
[2017-01-19 06:17] LABS: PLATELET COUNT 47 10^3/UL (140-415)
[2017-01-19 06:23] LABS: CK-MB 5.87 ng/ml (0.0-2.4); TROPONIN-I 0.16 ng/ml (0.00-0.12)
--- NOTE | 2017-01-19 07:16 | CONS ---
Date/Time of Note Date/Time of Note DATE: 01/19/17 TIME: 07:09 Consult Date/Type/Reason Admit Date/Time Jan 18, 2017 at 09:01 Initial Consult Date 01/18/17 Type of Consultation: neph Ordering Provider: MAGALI FROST MD Subjective 66-year-old male brought in by ambulance after a witnessed cardiac arrest. There was immediate bystander CPR by his family. Patient was initially in V. fib. He was shocked and went into PEA rhythm, then atrial fibrillation with return of spontaneous circulation. 2 rounds of epi were given. History is otherwise limited as the family is not here and the patient is unresponsive. Noted that last had hd yesterday. transferred in icu and dialyzed. on dopamine and levophed. GENERAL: Chronically ill-appearing on immediate gentleman intubated on mechanical ventilation currently on vecuronium and propofol NECK: Supple. No JVD or lymphadenopathy. CARDIAC EXAM: S1, S2. No added sounds or murmurs. CHEST: clear bilaterally, No added sounds, rales or wheezes ABDOMEN: Soft, nontender. No guarding or rebound. EXTREMITIES: No cyanosis, clubbing or edema. NEUROLOGIC: unable to assess Objective Vital Signs Date Time Temp Pulse Resp B/P Pulse Ox O2 Delivery O2 Flow Rate FiO2 01/19/17 06:15 85 107/53 100 01/19/17 06:00 91.8 Mechanical Ventilator 01/19/17 04:55 12 100 Intake and Output 01/18/17 01/18/17 01/19/17 15:00 23:00 07:00 Intake Total 808.41 ml 1019.940 ml Output Total 1330 ml 40 ml Balance -521.59 ml 979.940 ml Results/Medications Result Diagram: 01/19/17 0505 01/19/17 0505 Results 24 hrs Laboratory Tests Test 01/18/17 13:10 01/18/17 18:00 01/18/17 18:16 01/18/17 19:15 Creatine Kinase 52 57 Creatine Kinase Index 7.5 10.0 Creatinine Kinase MB (Mass) 3.92 H 5.72 H Troponin I 0.254 *H 0.273 *H Blood Gas Specimen Source Blood arterial Arterial Blood Date Drawn 01/18/2017 6:33:40 PM Arterial Blood pH (Temp corrected) 7.460 H Arterial Blood pCO2 (Temp correct) 39.7 Arterial Blood pO2 (Temp corrected) 61.4 L Arterial Blood HCO3 28.7 H Arterial Blood Base Excess 3.3 H Arterial Blood Oxygen Saturation 95.6 Vinay Test ACCEPTAB Arterial Blood Gas Puncture Site Right Radial Arterial Blood Carboxyhemoglobin 0.1 Arterial Blood Methemoglobin 0.3 Blood Gas A-a O2 Differential 255.1 H Oxyhemoglobin Percent 95.2 Total Hemoglobin 12.0 Blood Gas Temperature 33.0 Blood Gas Respiration Rate 12.0 Blood Gas Actual Respiration Rate 14 Blood Gas Modality VENT - AC FiO2 50.0 Blood Gas Tidal Volume 450.0 Blood Gas Low PEEP Setting 5.0 Blood Gas Notified Whom M.D. Blood Gas Notified Time 01/18/2017 6:45:18 PM Bedside Glucose 138 White Blood Count 7.0 # Red Blood Count 3.43 L Hemoglobin 10.8 L Hematocrit 32.9 L Mean Corpuscular Volume 95.9 Mean Corpuscular Hemoglobin 31.5 Mean Corpuscular Hemoglobin Concent 32.8 Red Cell Distribution Width 20.9 H Platelet Count 26 #*L Mean Platelet Volume Neutrophils % 88.0 H Band Neutrophils % 2.0 Lymphocytes % 7.0 L Monocytes % 2.0 Eosinophils % 1.0 Neutrophils # 6.2 Lymphocytes # 0.5 L Monocytes # 0.1 L Eosinophils # 0.1 Platelet Estimate PLT APPEAR DECREASED Prothrombin Time 26.7 H Prothrombin Time Ratio 2.1 INR International Normalized Ratio 2.43 Activated Partial Thromboplast Time 45.6 H Fibrinogen 153.0 L Sodium Level 145 H Potassium Level 2.6 *L Chloride Level 101 Carbon Dioxide Level 31 Anion Gap 16 Blood Urea Nitrogen 33 #H Creatinine 2.26 #H Glucose Level 126 # Calcium Level 7.7 L Phosphorus Level 1.3 #L Magnesium Level 2.1 Test 01/18/17 19:45 01/18/17 20:53 01/18/17 22:56 01/19/17 00:40 Bedside Glucose 134 106 106 White Blood Count 17.6 #H Red Blood Count 3.99 L Hemoglobin 12.5 L Hematocrit 38.9 L Mean Corpuscular Volume 97.5 Mean Corpuscular Hemoglobin 31.3 Mean Corpuscular Hemoglobin Concent 32.1 Red Cell Distribution Width 21.3 H Platelet Count 63 #L Mean Platelet Volume Neutrophils % 92.9 H Lymphocytes % 1.7 L Monocytes % 4.5 Eosinophils % 0.1 Basophils % 0.3 Nucleated Red Blood Cells % 0.0 Neutrophils # 16.4 H Lymphocytes # 0.3 L Monocytes # 0.8 Eosinophils # 0.0 Basophils # 0.1 Nucleated Red Blood Cells # 0.0 Prothrombin Time 25.3 H Prothrombin Time Ratio 2.0 INR International Normalized Ratio 2.27 Activated Partial Thromboplast Time 42.8 H Fibrinogen 177.0 #L Creatine Kinase 61 Creatine Kinase Index 10.5 Creatinine Kinase MB (Mass) 6.41 H Troponin I 0.218 *H Test 01/19/17 00:52 01/19/17 02:34 01/19/17 05:03 01/19/17 05:05 Bedside Glucose 98 98 101 White Blood Count 23.1 #H Red Blood Count 3.97 L Hemoglobin 12.5 L Hematocrit 38.9 L Mean Corpuscular Volume 98.0 Mean Corpuscular Hemoglobin 31.5 Mean Corpuscular Hemoglobin Concent 32.1 Red Cell Distribution Width 21.2 H Platelet Count 47 L Mean Platelet Volume Neutrophils % 94.9 H Lymphocytes % 1.1 L Monocytes % 3.2 Eosinophils % 0.0 Basophils % 0.2 Nucleated Red Blood Cells % 0.0 Neutrophils # 21.9 H Lymphocytes # 0.3 L Monocytes # 0.7 Eosinophils # 0.0 Basophils # 0.1 Nucleated Red Blood Cells # 0.0 Prothrombin Time 24.2 H Prothrombin Time Ratio 1.9 INR International Normalized Ratio 2.15 Activated Partial Thromboplast Time 41.1 H Thrombin Time 18.3 Fibrinogen 170.0 L Sodium Level 145 H Potassium Level 4.5 Chloride Level 104 Carbon Dioxide Level 29 Anion Gap 17 H Blood Urea Nitrogen 37 H Creatinine 2.70 H Glucose Level 102 Lactic Acid Level 1.6 Calcium Level 7.5 L Phosphorus Level 2.3 #L Magnesium Level 2.2 Creatine Kinase 53 Creatine Kinase Index 11.1 Creatinine Kinase MB (Mass) 5.87 H Troponin I 0.160 *H Test 01/19/17 05:18 01/19/17 06:35 Lab Scanned Report BLOOD TRANSFUSION Bedside Glucose 102 Medications Current Medications Ondansetron HCl (Zofran Tab) 4 mg Q6H PRN PO NAUSEA AND/OR VOMITING; Start at 09:00 Acetaminophen (Tylenol Liquid) 650 mg Q6H PRN PO PAIN LEVEL 1-3 OR FEVER; Start 01/18/17 at 09:00 Acetaminophen/ Hydrocodone Bitart ([place] (5/325)) 1 tab Q6H PRN PO PAIN LEVEL 4 -6; Start 01/18/17 at 09:00 Diagnostic Test (Pha) (Accu-Chek) 1 ea Q1H XX Last administered on 01/19/17 03 :46; Admin Dose 1 EA; Start 01/18/17 at 18:30 Dextrose (D50w Syringe) 25 ml Q15M PRN IV Till BS 80 mg/dL or above x2; Start 01/18/17 at 18:30 Dextrose (D50w Syringe) 50 ml Q15M PRN IV Till BS 80 mg/dL or above x2; Start 01/18/17 at 18:30 Miscellaneous Information 1 ea NOTE XX ; Start 01/18/17 at 19:00 Glucose (Glutose) 15 gm Q15M PRN PO DECREASED GLUCOSE; Start 01/18/17 at 19:00 Glucose (Glutose) 22.5 gm Q15M PRN PO DECREASED GLUCOSE; Start 01/18/17 at 19: 00 Dextrose (D50w Syringe) 25 ml Q15M PRN IV DECREASED GLUCOSE; Start 01/18/17 at 19:00 Dextrose (D50w Syringe) 50 ml Q15M PRN IV DECREASED GLUCOSE; Start 01/18/17 at 19:00 Glucagon (Glucagen) 1 mg Q15M PRN IM DECREASED GLUCOSE; Start 01/18/17 at 19:00 Glucose 15 gm 15 gm Q15M PRN BUCCAL DECREASED GLUCOSE; Start 01/18/17 at 19:00 Dopamine HCl/ Dextrose 250 ml @ 5.25 mls/hr TITRATE IV Last administered on 20:00; Admin Dose 18.37 MLS/HR; Start 01/18/17 at 19:00 Norepinephrine/ Dextrose (Levophed/D5W) 250 ml @ 0.46 mls/hr TITRATE IV ; Start 01/18/17 at 19:00 Famotidine 20 mg 20 mg DAILY IV ; Start 01/19/17 at 09:00 Levofloxacin/ Dextrose 150 ml @ 100 mls/hr Q48H IVPB Last administered on 01/18 20:38; Admin Dose 100 MLS/HR; Start 01/18/17 at 20:00 Sodium Chloride 1,000 ml @ 50 mls/hr Q20H IV Last administered on 01/18/17 20 :07; Admin Dose 50 MLS/HR; Start 01/18/17 at 19:35 Vecuronium [place]/Dextrose (Norcuron/D5W) 100 ml @ 3.72 mls/hr Q24H IV Last administered on 01/18/17 20:07; Admin Dose 3.1 MLS/HR; Start 01/18/17 at 19:35 Acetaminophen (Tylenol Supp) 650 mg Q4H PRN [place] TEMP > 37C; Start 01/18/17 at 20 :00 Acetaminophen (Tylenol Liquid) 650 mg Q4H PRN PO TEMP > 37C; Start 01/18/17 at 20:00 Acetaminophen (Tylenol Supp) 500 mg Q6H [place] ; Start 01/19/17 at 20:00 Acetaminophen (Tylenol Liquid) 500 mg Q6H PO ; Start 01/19/17 at 20:00 Meperidine HCl (Demerol) 12.5 mg Q4H PRN IV POST OPERATIVE SHIVERING; Start at 20:00 Meperidine HCl (Demerol) 25 mg Q4H PRN IV POST OPERATIVE SHIVERING; Start 01/18 at 20:00 Eye Lubricant (Akwa Oint) 1 applic Q6 BOTH EYES Last administered on 01/19/17 00:47; Admin Dose 1 APPLIC; Start 01/18/17 at 20:00 Eye Lubricant (Artificial Tears Oph) 2 drop Q6 BOTH EYES Last administered on 00:47; Admin Dose 2 DROP; Start 01/19/17 at 00:00 Diagnostic Test (Pha) (Accu-Chek) 1 ea Q1H XX Last administered on 01/19/17 03 :46; Admin Dose 1 EA; Start 01/18/17 at 20:00 Dextrose (D50w Syringe) 25 ml Q15M PRN IV Till BS 80 mg/dL or above x2; Start 01/18/17 at 20:00 Dextrose (D50w Syringe) 50 ml Q15M PRN IV Till BS 80 mg/dL or above x2; Start 01/18/17 at 20:00 Assessment/Plan Chief Complaint/Hosp Course ESRD on hd- with pulm edema on cxr. likely cardiogenic. unclear if producing urine will dialyze cautiously. hd on qod schedule as able. monitor daily for hd need. all meds dosed ok. shock- cardiogenic and or septic. worsening leucocytosis. fu cultures. abx per primary. consider vanco for line sepsis. consider id consult. Resp failure: on vent. pulm fu. possible retrocardiac infiltrate. VF cardiac arrest: No STEMI by EKG. He did not have CAD as of 2008 but certainly this could have changed. Unclear if he has a cardiomyopathy. If he does, he may have had VT which degenerated to VF. His initial EKG may have been MMVT. He is also in mild heart failure by CXR. He is currently on hypothermic protocol and there is no emergent reason for cardiac cath. Once he completes hypothermia and if he wakes up, he will need a cardiac cath for evaluation and eventually an ICD. ?MMVT: first EKG is concerning for VT. Options are limited with his liver cirrhosis and both amio and lidocaine are not great options. Acute on chronic ?systolic vs diastolic heart failure Mechanical AVR 2007 and 2008: apparently not on coumadin due to bleeding. He is autoanticoagulated at this time with INR 2.3 Liver cirrhosis from presumed alcohol Thrombocytopenia Coagulopathy: INR 2.3 Problems: ANISA KAYE MD Jan 19, 2017 07:16
--- NOTE | 2017-01-19 07:43 | RADRPT ---
PROCEDURE: XR Chest. CLINICAL INDICATION: Wrist short failure TECHNIQUE: Single AP portable chest. COMPARISON: 04/24/2009 Chest x-ray FINDINGS: The cardiac silhouette is enlarged but stable in size. Endotracheal tube tip 5.4 cm above the linda a. Left dialysis catheter tube tip overlying the mid superior vena cava. Aortic valve prosthesis i n place with sternotomy wires. Right PICC line catheter tip overlying the cavoatrial junction Ather osclerotic calcification of the aorta. Small to moderate right and small left pleural effusion and m ild vascular congestion. No pneumothorax. The osseous structures and soft tissues are unremarkable. IMPRESSION: 1. Cardiomegaly, mild vascular congestion, and increasing pleural effusions greater on the right. 2. Sternotomy wires and aortic valvular prosthesis in place. 3. Support devices in satisfactory position as detailed above . RPTAT:AAJJ Physician Sanket Date Time Electronically viewed and signed by Physician Sanket on 01/19/2017 07:42 MASOUD/
--- NOTE | 2017-01-19 08:34 | PN ---
Date/Time of Note Date/Time of Note DATE: 01/19/17 TIME: 08:33 Assessment/Plan VTE Prophylaxis VTE Prophylaxis Intervention: SCD's Lines/Catheters IV Catheter Type (from Nrsg): Central Line Central line still needed: Yes Urinary Cath still in place: Yes Reason Cath still needed: other (indicate) (critically ill) Assessment/Plan Assessment/Plan 66 yo M with pmhx cirrhosis, ESRD on HD, h/o MVR previously on Coumadin admitted following VFib arrest #VFib arrest with ROSC: suspect 2/2 underlying heart disease/CAD with scar tissue into cardiac electrical system; no STEMI on EKG -hypothermia protocol complete. rewarming has commenced -insulin drip ordered -cardiology on consult -trending troponin per cardiology rec -TTE ordered -pulm following #ESRD on HD: nephrology cs #cirrhosis: judicious fluids #h/o MVR previously on Coumadin -cardiology following #?aspiration pna: empiric abx DVT prophx: SQH and SCDs Critical care time: 30 minutes Subjective 24 Hr Interval Summary Free Text/Dictation Pt has been on hypothermia protocol since last night. Rewarming started this AM. Exam/Review of Systems Vital Signs Vitals Vital Signs Date Time Temp Pulse Resp B/P Pulse Ox O2 Delivery O2 Flow Rate FiO2 01/19/17 08:00 75 01/19/17 06:15 107/53 100 01/19/17 06:00 91.8 Mechanical Ventilator 01/19/17 04:55 12 100 Intake and Output 01/18/17 01/18/17 01/19/17 15:00 23:00 07:00 Intake Total 808.41 ml 1019.940 ml Output Total 1330 ml 40 ml Balance -521.59 ml 979.940 ml Exam intubated and sedated lungs clear no mrg HD catheter c/d/i no le edema labs reviewed, minimal troponin elevation Results Result Diagram: 01/19/17 0505 01/19/17 0505 Results 24 hrs Laboratory Tests Test 01/18/17 13:10 01/18/17 18:00 01/18/17 18:16 01/18/17 19:15 Creatine Kinase 52 57 Creatine Kinase Index 7.5 10.0 Creatinine Kinase MB (Mass) 3.92 H 5.72 H Troponin I 0.254 *H 0.273 *H Blood Gas Specimen Source Blood arterial Arterial Blood Date Drawn 01/18/2017 6:33:40 PM Arterial Blood pH (Temp corrected) 7.460 H Arterial Blood pCO2 (Temp correct) 39.7 Arterial Blood pO2 (Temp corrected) 61.4 L Arterial Blood HCO3 28.7 H Arterial Blood Base Excess 3.3 H Arterial Blood Oxygen Saturation 95.6 Vinay Test ACCEPTAB Arterial Blood Gas Puncture Site Right Radial Arterial Blood Carboxyhemoglobin 0.1 Arterial Blood Methemoglobin 0.3 Blood Gas A-a O2 Differential 255.1 H Oxyhemoglobin Percent 95.2 Total Hemoglobin 12.0 Blood Gas Temperature 33.0 Blood Gas Respiration Rate 12.0 Blood Gas Actual Respiration Rate 14 Blood Gas Modality VENT - AC FiO2 50.0 Blood Gas Tidal Volume 450.0 Blood Gas Low PEEP Setting 5.0 Blood Gas Notified Whom M.D. Blood Gas Notified Time 01/18/2017 6:45:18 PM Bedside Glucose 138 White Blood Count 7.0 # Red Blood Count 3.43 L Hemoglobin 10.8 L Hematocrit 32.9 L Mean Corpuscular Volume 95.9 Mean Corpuscular Hemoglobin 31.5 Mean Corpuscular Hemoglobin Concent 32.8 Red Cell Distribution Width 20.9 H Platelet Count 26 #*L Mean Platelet Volume Neutrophils % 88.0 H Band Neutrophils % 2.0 Lymphocytes % 7.0 L Monocytes % 2.0 Eosinophils % 1.0 Neutrophils # 6.2 Lymphocytes # 0.5 L Monocytes # 0.1 L Eosinophils # 0.1 Platelet Estimate PLT APPEAR DECREASED Prothrombin Time 26.7 H Prothrombin Time Ratio 2.1 INR International Normalized Ratio 2.43 Activated Partial Thromboplast Time 45.6 H Fibrinogen 153.0 L Sodium Level 145 H Potassium Level 2.6 *L Chloride Level 101 Carbon Dioxide Level 31 Anion Gap 16 Blood Urea Nitrogen 33 #H Creatinine 2.26 #H Glucose Level 126 # Calcium Level 7.7 L Phosphorus Level 1.3 #L Magnesium Level 2.1 Test 01/18/17 19:45 01/18/17 20:53 01/18/17 22:56 01/19/17 00:40 Bedside Glucose 134 106 106 White Blood Count 17.6 #H Red Blood Count 3.99 L Hemoglobin 12.5 L Hematocrit 38.9 L Mean Corpuscular Volume 97.5 Mean Corpuscular Hemoglobin 31.3 Mean Corpuscular Hemoglobin Concent 32.1 Red Cell Distribution Width 21.3 H Platelet Count 63 #L Mean Platelet Volume Neutrophils % 92.9 H Lymphocytes % 1.7 L Monocytes % 4.5 Eosinophils % 0.1 Basophils % 0.3 Nucleated Red Blood Cells % 0.0 Neutrophils # 16.4 H Lymphocytes # 0.3 L Monocytes # 0.8 Eosinophils # 0.0 Basophils # 0.1 Nucleated Red Blood Cells # 0.0 Prothrombin Time 25.3 H Prothrombin Time Ratio 2.0 INR International Normalized Ratio 2.27 Activated Partial Thromboplast Time 42.8 H Fibrinogen 177.0 #L Creatine Kinase 61 Creatine Kinase Index 10.5 Creatinine Kinase MB (Mass) 6.41 H Troponin I 0.218 *H Test 01/19/17 00:52 01/19/17 02:34 01/19/17 05:03 01/19/17 05:05 Bedside Glucose 98 98 101 White Blood Count 23.1 #H Red Blood Count 3.97 L Hemoglobin 12.5 L Hematocrit 38.9 L Mean Corpuscular Volume 98.0 Mean Corpuscular Hemoglobin 31.5 Mean Corpuscular Hemoglobin Concent 32.1 Red Cell Distribution Width 21.2 H Platelet Count 47 L Mean Platelet Volume Neutrophils % 94.9 H Lymphocytes % 1.1 L Monocytes % 3.2 Eosinophils % 0.0 Basophils % 0.2 Nucleated Red Blood Cells % 0.0 Neutrophils # 21.9 H Lymphocytes # 0.3 L Monocytes # 0.7 Eosinophils # 0.0 Basophils # 0.1 Nucleated Red Blood Cells # 0.0 Prothrombin Time 24.2 H Prothrombin Time Ratio 1.9 INR International Normalized Ratio 2.15 Activated Partial Thromboplast Time 41.1 H Thrombin Time 18.3 Fibrinogen 170.0 L Sodium Level 145 H Potassium Level 4.5 Chloride Level 104 Carbon Dioxide Level 29 Anion Gap 17 H Blood Urea Nitrogen 37 H Creatinine 2.70 H Glucose Level 102 Lactic Acid Level 1.6 Calcium Level 7.5 L Phosphorus Level 2.3 #L Magnesium Level 2.2 Creatine Kinase 53 Creatine Kinase Index 11.1 Creatinine Kinase MB (Mass) 5.87 H Troponin I 0.160 *H Test 01/19/17 05:18 01/19/17 06:35 Lab Scanned Report BLOOD TRANSFUSION Bedside Glucose 102 Medications Medications Current Medications Ondansetron HCl (Zofran Tab) 4 mg Q6H PRN PO NAUSEA AND/OR VOMITING; Start at 09:00 Acetaminophen (Tylenol Liquid) 650 mg Q6H PRN PO PAIN LEVEL 1-3 OR FEVER; Start 01/18/17 at 09:00 Acetaminophen/ Hydrocodone Bitart ([place] (5/325)) 1 tab Q6H PRN PO PAIN LEVEL 4 -6; Start 01/18/17 at 09:00 Diagnostic Test (Pha) (Accu-Chek) 1 ea Q1H XX Last administered on 01/19/17 03 :46; Admin Dose 1 EA; Start 01/18/17 at 18:30 Dextrose (D50w Syringe) 25 ml Q15M PRN IV Till BS 80 mg/dL or above x2; Start 01/18/17 at 18:30 Dextrose (D50w Syringe) 50 ml Q15M PRN IV Till BS 80 mg/dL or above x2; Start 01/18/17 at 18:30 Miscellaneous Information 1 ea NOTE XX ; Start 01/18/17 at 19:00 Glucose (Glutose) 15 gm Q15M PRN PO DECREASED GLUCOSE; Start 01/18/17 at 19:00 Glucose (Glutose) 22.5 gm Q15M PRN PO DECREASED GLUCOSE; Start 01/18/17 at 19: 00 Dextrose (D50w Syringe) 25 ml Q15M PRN IV DECREASED GLUCOSE; Start 01/18/17 at 19:00 Dextrose (D50w Syringe) 50 ml Q15M PRN IV DECREASED GLUCOSE; Start 01/18/17 at 19:00 Glucagon (Glucagen) 1 mg Q15M PRN IM DECREASED GLUCOSE; Start 01/18/17 at 19:00 Glucose 15 gm 15 gm Q15M PRN BUCCAL DECREASED GLUCOSE; Start 01/18/17 at 19:00 Dopamine HCl/ Dextrose 250 ml @ 5.25 mls/hr TITRATE IV Last administered on 20:00; Admin Dose 18.37 MLS/HR; Start 01/18/17 at 19:00 Norepinephrine/ Dextrose (Levophed/D5W) 250 ml @ 0.46 mls/hr TITRATE IV ; Start 01/18/17 at 19:00 Famotidine 20 mg 20 mg DAILY IV ; Start 01/19/17 at 09:00 Levofloxacin/ Dextrose 150 ml @ 100 mls/hr Q48H IVPB Last administered on 01/18 20:38; Admin Dose 100 MLS/HR; Start 01/18/17 at 20:00 Sodium Chloride 1,000 ml @ 50 mls/hr Q20H IV Last administered on 01/18/17 20 :07; Admin Dose 50 MLS/HR; Start 01/18/17 at 19:35 Vecuronium [place]/Dextrose (Norcuron/D5W) 100 ml @ 3.72 mls/hr Q24H IV Last administered on 01/18/17 20:07; Admin Dose 3.1 MLS/HR; Start 01/18/17 at 19:35 Acetaminophen (Tylenol Supp) 650 mg Q4H PRN [place] TEMP > 37C; Start 01/18/17 at 20 :00 Acetaminophen (Tylenol Liquid) 650 mg Q4H PRN PO TEMP > 37C; Start 01/18/17 at 20:00 Acetaminophen (Tylenol Supp) 500 mg Q6H [place] ; Start 01/19/17 at 20:00 Acetaminophen (Tylenol Liquid) 500 mg Q6H PO ; Start 01/19/17 at 20:00 Meperidine HCl (Demerol) 12.5 mg Q4H PRN IV POST OPERATIVE SHIVERING; Start at 20:00 Meperidine HCl (Demerol) 25 mg Q4H PRN IV POST OPERATIVE SHIVERING; Start 01/18 at 20:00 Eye Lubricant (Akwa Oint) 1 applic Q6 BOTH EYES Last administered on 01/19/17 00:47; Admin Dose 1 APPLIC; Start 01/18/17 at 20:00 Eye Lubricant (Artificial Tears Oph) 2 drop Q6 BOTH EYES Last administered on 00:47; Admin Dose 2 DROP; Start 01/19/17 at 00:00 Diagnostic Test (Pha) (Accu-Chek) 1 ea Q1H XX Last administered on 01/19/17 03 :46; Admin Dose 1 EA; Start 01/18/17 at 20:00 Dextrose (D50w Syringe) 25 ml Q15M PRN IV Till BS 80 mg/dL or above x2; Start 01/18/17 at 20:00 Dextrose (D50w Syringe) 50 ml Q15M PRN IV Till BS 80 mg/dL or above x2; Start 01/18/17 at 20:00 MAGALI FROST MD Jan 19, 2017 08:34
[2017-01-19] MEDS: FAMOTIDINE 20 MG INJ IV SCH (08:57)
--- NOTE | 2017-01-19 10:19 | CONS ---
Date/Time of Note Date/Time of Note DATE: 01/19/17 TIME: : Consult Date/Type/Reason Admit Date/Time Jan 18, 2017 at 09:01 Initial Consult Date 01/18/17 Type of Consultation: Pulmonary Ordering Provider: MAGALI FROST MD Subjective Patient remains intubated on mechanical ventilation, currently on the refill warming phase of hypothermia protocol. Objective Vital Signs Date Time Temp Pulse Resp B/P Pulse Ox O2 Delivery O2 Flow Rate FiO2 01/19/17 09:30 92.0 89 107/44 98 Mechanical Ventilator 01/19/17 04:55 12 100 Intake and Output 01/18/17 01/18/17 01/19/17 15:00 23:00 07:00 Intake Total 808.41 ml 1019.940 ml Output Total 1330 ml 40 ml Balance -521.59 ml 979.940 ml Exam GENERAL: Chronically ill-appearing on immediate gentleman intubated on mechanical ventilation currently on vecuronium and propofol VITAL SIGNS: per chart NECK: Supple. No JVD or lymphadenopathy. CARDIAC EXAM: S1, S2. No added sounds or murmurs. CHEST: clear bilaterally, No added sounds, rales or wheezes ABDOMEN: Soft, nontender. No guarding or rebound. EXTREMITIES: No cyanosis, clubbing or edema. NEUROLOGIC: unable to assess Results/Medications Result Diagram: 01/19/17 0505 01/19/17 0505 Results 24 hrs Laboratory Tests Test 01/18/17 13:10 01/18/17 18:00 01/18/17 18:16 01/18/17 19:15 Creatine Kinase 52 57 Creatine Kinase Index 7.5 10.0 Creatinine Kinase MB (Mass) 3.92 H 5.72 H Troponin I 0.254 *H 0.273 *H Blood Gas Specimen Source Blood arterial Arterial Blood Date Drawn 01/18/2017 6:33:40 PM Arterial Blood pH (Temp corrected) 7.460 H Arterial Blood pCO2 (Temp correct) 39.7 Arterial Blood pO2 (Temp corrected) 61.4 L Arterial Blood HCO3 28.7 H Arterial Blood Base Excess 3.3 H Arterial Blood Oxygen Saturation 95.6 Vinay Test ACCEPTAB Arterial Blood Gas Puncture Site Right Radial Arterial Blood Carboxyhemoglobin 0.1 Arterial Blood Methemoglobin 0.3 Blood Gas A-a O2 Differential 255.1 H Oxyhemoglobin Percent 95.2 Total Hemoglobin 12.0 Blood Gas Temperature 33.0 Blood Gas Respiration Rate 12.0 Blood Gas Actual Respiration Rate 14 Blood Gas Modality VENT - AC FiO2 50.0 Blood Gas Tidal Volume 450.0 Blood Gas Low PEEP Setting 5.0 Blood Gas Notified Whom M.DMiguel Blood Gas Notified Time 01/18/2017 6:45:18 PM Bedside Glucose 138 White Blood Count 7.0 # Red Blood Count 3.43 L Hemoglobin 10.8 L Hematocrit 32.9 L Mean Corpuscular Volume 95.9 Mean Corpuscular Hemoglobin 31.5 Mean Corpuscular Hemoglobin Concent 32.8 Red Cell Distribution Width 20.9 H Platelet Count 26 #*L Mean Platelet Volume Neutrophils % 88.0 H Band Neutrophils % 2.0 Lymphocytes % 7.0 L Monocytes % 2.0 Eosinophils % 1.0 Neutrophils # 6.2 Lymphocytes # 0.5 L Monocytes # 0.1 L Eosinophils # 0.1 Platelet Estimate PLT APPEAR DECREASED Prothrombin Time 26.7 H Prothrombin Time Ratio 2.1 INR International Normalized Ratio 2.43 Activated Partial Thromboplast Time 45.6 H Fibrinogen 153.0 L Sodium Level 145 H Potassium Level 2.6 *L Chloride Level 101 Carbon Dioxide Level 31 Anion Gap 16 Blood Urea Nitrogen 33 #H Creatinine 2.26 #H Glucose Level 126 # Calcium Level 7.7 L Phosphorus Level 1.3 #L Magnesium Level 2.1 Test 01/18/17 19:45 01/18/17 20:53 01/18/17 22:56 01/19/17 00:40 Bedside Glucose 134 106 106 White Blood Count 17.6 #H Red Blood Count 3.99 L Hemoglobin 12.5 L Hematocrit 38.9 L Mean Corpuscular Volume 97.5 Mean Corpuscular Hemoglobin 31.3 Mean Corpuscular Hemoglobin Concent 32.1 Red Cell Distribution Width 21.3 H Platelet Count 63 #L Mean Platelet Volume Neutrophils % 92.9 H Lymphocytes % 1.7 L Monocytes % 4.5 Eosinophils % 0.1 Basophils % 0.3 Nucleated Red Blood Cells % 0.0 Neutrophils # 16.4 H Lymphocytes # 0.3 L Monocytes # 0.8 Eosinophils # 0.0 Basophils # 0.1 Nucleated Red Blood Cells # 0.0 Prothrombin Time 25.3 H Prothrombin Time Ratio 2.0 INR International Normalized Ratio 2.27 Activated Partial Thromboplast Time 42.8 H Fibrinogen 177.0 #L Creatine Kinase 61 Creatine Kinase Index 10.5 Creatinine Kinase MB (Mass) 6.41 H Troponin I 0.218 *H Test 01/19/17 00:52 01/19/17 02:34 01/19/17 05:03 01/19/17 05:05 Bedside Glucose 98 98 101 White Blood Count 23.1 #H Red Blood Count 3.97 L Hemoglobin 12.5 L Hematocrit 38.9 L Mean Corpuscular Volume 98.0 Mean Corpuscular Hemoglobin 31.5 Mean Corpuscular Hemoglobin Concent 32.1 Red Cell Distribution Width 21.2 H Platelet Count 47 L Mean Platelet Volume Neutrophils % 94.9 H Lymphocytes % 1.1 L Monocytes % 3.2 Eosinophils % 0.0 Basophils % 0.2 Nucleated Red Blood Cells % 0.0 Neutrophils # 21.9 H Lymphocytes # 0.3 L Monocytes # 0.7 Eosinophils # 0.0 Basophils # 0.1 Nucleated Red Blood Cells # 0.0 Prothrombin Time 24.2 H Prothrombin Time Ratio 1.9 INR International Normalized Ratio 2.15 Activated Partial Thromboplast Time 41.1 H Thrombin Time 18.3 Fibrinogen 170.0 L Sodium Level 145 H Potassium Level 4.5 Chloride Level 104 Carbon Dioxide Level 29 Anion Gap 17 H Blood Urea Nitrogen 37 H Creatinine 2.70 H Glucose Level 102 Lactic Acid Level 1.6 Calcium Level 7.5 L Phosphorus Level 2.3 #L Magnesium Level 2.2 Creatine Kinase 53 Creatine Kinase Index 11.1 Creatinine Kinase MB (Mass) 5.87 H Troponin I 0.160 *H Test 01/19/17 05:18 01/19/17 06:35 Lab Scanned Report BLOOD TRANSFUSION Bedside Glucose 102 Medications Current Medications Ondansetron HCl (Zofran Tab) 4 mg Q6H PRN PO NAUSEA AND/OR VOMITING; Start at 09:00 Acetaminophen (Tylenol Liquid) 650 mg Q6H PRN PO PAIN LEVEL 1-3 OR FEVER; Start 01/18/17 at 09:00 Acetaminophen/ Hydrocodone Bitart ([place] (5/325)) 1 tab Q6H PRN PO PAIN LEVEL 4 -6; Start 01/18/17 at 09:00 Diagnostic Test (Pha) (Accu-Chek) 1 ea Q1H XX Last administered on 01/19/17t 09 :30; Admin Dose 1 EA; Start 7/15/17 at 18:30 Dextrose (D50w Syringe) 25 ml Q15M PRN IV Till BS 80 mg/dL or above x2; Start 01/18/17 at 18:30 Dextrose (D50w Syringe) 50 ml Q15M PRN IV Till BS 80 mg/dL or above x2; Start 01/18/17 at 18:30 Miscellaneous Information 1 ea NOTE XX ; Start 01/18/17 at 19:00 Glucose (Glutose) 15 gm Q15M PRN PO DECREASED GLUCOSE; Start 01/18/17 at 19:00 Glucose (Glutose) 22.5 gm Q15M PRN PO DECREASED GLUCOSE; Start 01/18/17 at 19: 00 Dextrose (D50w Syringe) 25 ml Q15M PRN IV DECREASED GLUCOSE; Start 01/18/17 at 19:00 Dextrose (D50w Syringe) 50 ml Q15M PRN IV DECREASED GLUCOSE; Start 01/18/17 at 19:00 Glucagon (Glucagen) 1 mg Q15M PRN IM DECREASED GLUCOSE; Start 01/18/17 at 19:00 Glucose 15 gm 15 gm Q15M PRN BUCCAL DECREASED GLUCOSE; Start 01/18/17 at 19:00 Dopamine HCl/ Dextrose 250 ml @ 5.25 mls/hr TITRATE IV Last administered on 20:00; Admin Dose 18.37 MLS/HR; Start 01/18/17 at 19:00 Norepinephrine/ Dextrose (Levophed/D5W) 250 ml @ 0.46 mls/hr TITRATE IV ; Start 01/18/17 at 19:00 Famotidine 20 mg 20 mg DAILY IV Last administered on 01/19/17 08:57; Admin Dose 20 MG; Start 01/19/17 at 09:00 Levofloxacin/ Dextrose 150 ml @ 100 mls/hr Q48H IVPB Last administered on 01/18 20:38; Admin Dose 100 MLS/HR; Start 01/18/17 at 20:00 Sodium Chloride 1,000 ml @ 50 mls/hr Q20H IV Last administered on 01/18/17 20 :07; Admin Dose 50 MLS/HR; Start 01/18/17 at 19:35 Vecuronium [place]/Dextrose (Norcuron/D5W) 100 ml @ 3.72 mls/hr Q24H IV Last administered on 01/18/17 20:07; Admin Dose 3.1 MLS/HR; Start 01/18/17 at 19:35 Acetaminophen (Tylenol Supp) 650 mg Q4H PRN [place] TEMP > 37C; Start 01/18/17 at 20 :00 Acetaminophen (Tylenol Liquid) 650 mg Q4H PRN PO TEMP > 37C; Start 01/18/17 at 20:00 Acetaminophen (Tylenol Supp) 500 mg Q6H [place] ; Start 01/19/17 at 20:00 Acetaminophen (Tylenol Liquid) 500 mg Q6H PO ; Start 01/19/17 at 20:00 Meperidine HCl (Demerol) 12.5 mg Q4H PRN IV POST OPERATIVE SHIVERING; Start at 20:00 Meperidine HCl (Demerol) 25 mg Q4H PRN IV POST OPERATIVE SHIVERING; Start 01/18 at 20:00 Eye Lubricant (Akwa Oint) 1 applic Q6 BOTH EYES Last administered on 01/19/17 08:57; Admin Dose 1 APPLIC; Start 01/18/17 at 20:00 Eye Lubricant (Artificial Tears Oph) 2 drop Q6 BOTH EYES Last administered on 08:57; Admin Dose 2 DROP; Start 01/19/17 at 00:00 Diagnostic Test (Pha) (Accu-Chek) 1 ea Q1H XX Last administered on 01/19/17 09 :30; Admin Dose 1 EA; Start 01/18/17 at 20:00 Dextrose (D50w Syringe) 25 ml Q15M PRN IV Till BS 80 mg/dL or above x2; Start 01/18/17 at 20:00 Dextrose (D50w Syringe) 50 ml Q15M PRN IV Till BS 80 mg/dL or above x2; Start 01/18/17 at 20:00 Assessment/Plan Chief Complaint/Hosp Course Assessment /plan 1. Cardiopulmonary arrest likely primary cardiac event. History of aortic valve replacement unclear with a history of ischemic heart disease. Currently not on anticoagulation. -Echocardiogram -Cardiology recommendations -May need dopamine infusion for bradycardia, 2. Hypothermia protocol following cardiopulmonary arrest currently on the rewarming phase. -Continue sedation and paralysis -Insulin drip 3. Hypoxemic respiratory failure secondary to above -Continue mechanical ventilation -Bronchodilators -Increase minute ventilation if needed. 4. Likely aspiration pneumonia -Broad-spectrum antibiotics -Penicillin allergy to try cefepime 5. Coagulopathy -Questionable underlying cirrhosis incomplete data 6. Encephalopathy, possible anoxic brain injury following cardiac arrest - continue hypothermia protocol -EEG and neuro evaluation if no significant neurological changes after 48 hours 7. End-stage renal failure on hemodialysis -Nephrology consultation -Hemodialysis as tolerated 8. DVT and GI prophylaxis Critical care time 40 minutes. Problems: AVIVA VILLEGAS MD, [facility] Jan 19, 2017 10:19
[2017-01-19] MEDS ORDERED: CEFEPIME 2GM/50 ML (PMX) 50 ML IVPB SCH (10:30)
--- NOTE | 2017-01-19 10:53 | RADRPT ---
Echocardiogram Report Patient Name: ULISES MEHTA Gender: Male Date: 1950 Study Date: 18-Jan-2017 Real Estate Sales Manager: [facility] Location: ER=2 Race: = Ref. Physician: MAGALI FROST Quality: Adequate Procedures: Transthoracic echocardiogram with complete 2D, M-Mode, and doppler examination. Indications: SP Cardiac Arrest. 2D/M Mode Doppler Measurement Value Normal Ranges Measurement Value Normal Ranges LVIDd 2D 5.8 3.5 - 5.6 cm ADE Vmax 1.4 cm2 LVIDs 2D 4.3 2.1 - 4.1 cm ADE VTI 1.5 cm2 FS 2D 25.6 % AV Mean Castro 1.5 m/sec LVPWd 2D 1.3 0.6 - 1.1 cm AV Mean PG 12.0 mmHg IVSd 2D 1.3 0.6 - 1.1 cm AV Peak Castro 2.6 m/sec IVS/LVPW 2D 1.0 AV Peak PG 27.0 mmHg AoR Diam 2D 3.0 2.0 - 3.7 cm AV VTI 63.3 cm LA/Ao 2D 2 0 - 1 LVOT Mean Castro 0.5 m/sec EDV 2D 194.0 cm3 LVOT Mean PG 1.0 mmHg ESV 2D 80.1 cm3 LVOT Peak Castro 0.9 m/sec LA Dimen 2D 5.0 2.3 - 4.0 cm LVOT Peak PG 3.0 mmHg LVOT Diam 2.3 cm LVOT VTI 22.8 cm LVOT Area 4.2 cm2 MV E Peak Castro 0.9 m/sec MR Peak PG 94.0 mmHg MR Peak Castro 4.9 m/sec TR Peak Castro 2.7 m/sec TR Peak PG 28.0 mmHg RVSP 36.0 mmHg Findings Left Ventricle: Moderate concentric left ventricular hypertrophy. Moderate enlargement of left ventricle cavity. Ejection fraction is visually estimated at 55 %. Right Ventricle: Normal right ventricular size. Mild right ventricular hypokinesis. Left Atrium: There is moderate enlargement of left atrium. Right Atrium: The right atrium is normal in size. Mitral Valve: Mitral valve leaflets appear mildly thickened. Moderate mitral annular calcification. Mild mitral valve regurgitation. Aortic Valve: Aortic Valve Mechanical Prosthesis. Aortic valve Max velocity 2.62 m/sec. Max PG 27.00 mmHg. Mean PG 12.00 mmHg. Aortic valve area 1.50 cm2. Moderate to severe aortic valve regurgitation. The regurgitation jet is eccentrically directed. Tricuspid Valve: Normal appearance of the tricuspid valve. Estimated peak PA systolic pressure 36 mmHg. There is mild tricuspid regurgitation. Pulmonic Valve: Pulmonic valve not well visualized. There is mild pulmonic regurgitation. Pericardium: Normal pericardium with no significant pericardial effusion. Left pleural effusion seen. Aorta: Normal aortic root. IVC: Inferior vena cava without respiratory collapse, however, patient on ventilator. Conclusions Moderate concentric left ventricular hypertrophy. Moderate enlargement of left ventricle cavity. Ejection fraction is visually estimated at 55 %. Aortic Valve Mechanical Prosthesis (Bileaflet). Aortic valve Max velocity 2.62 m/sec. Max PG 27.00 mmHg. Mean PG 12.00 mmHg. Aortic valve area 1.50 cm2. Moderate to severe eccentric aortic valve regurgitation, possibly paravalvular though shadowing limits evaluation. Estimated peak PA systolic pressure 36 mmHg based on RA pressure of 8 mmHg. Electronically Signed By: Alberto Gaitan 19-Jan-2017 10:52:42 -[id number] Patient Name: ULISES MEHTA Study Date: 18-Jan-2017 [id number]
--- NOTE | 2017-01-19 11:14 | CONS ---
Date/Time of Note Date/Time of Note DATE: 01/19/17 TIME: 11:07 Assessment/Plan Assessment/Plan Chief Complaint/Hosp Course VF cardiac arrest: No STEMI by EKG. He did not have CAD as of 2008 but certainly this could have changed. Trops only mildly elevated to 0.27. EF preserved. Doubt CAD related. May have scar related VT/VF from prior cardiac surgeries. Will still need a cath if regains mentation. ?MMVT: first EKG is concerning for VT as different morphology. Options are limited with his liver cirrhosis and both amio and lidocaine are not great options. No recurrence. NSTEMI: mild trop elevation, type II in setting of arrest. EF preserved and no WMA Acute on chronic diastolic heart failure: mild Mechanical AVR 2007 and 2008: apparently not on coumadin due to bleeding. He is autoanticoagulated at this time. Echo shows acceptable gradients across valve but with possible mod-severe paravalvular leak. If mental status improves, may need a CARITO for better assessment. Cultures negative to date ESRD on HD Liver cirrhosis from presumed alcohol Thrombocytopenia Coagulopathy: INR >2 -hold off on ASA for now as suspicion for CAD is still low, thrombocytopenic and coagulopathic -wean off dopamine as BP/HR tolerate -warming initiated, will assess for mental status recovery -will need CARITO, cardiac cath, ICD if mentation improves Problems: Consultation Date/Type/Reason Admit Date/Time Jan 18, 2017 at 09:01 Initial Consult Date 01/18/17 Type of Consultation: Cardiology Referring Provider: MAGALI FROST MD 24 HR Interval Summary Free Text/Dictation Only afib overnight, no VT/VF. Rewarming stage now. On dopamine Exam/Review of Systems Vital Signs Vitals Vital Signs Date Time Temp Pulse Resp B/P Pulse Ox O2 Delivery O2 Flow Rate FiO2 01/19/17 09:30 92.0 89 107/44 98 Mechanical Ventilator 01/19/17 04:55 12 100 Intake and Output 01/18/17 01/18/17 01/19/17 15:00 23:00 07:00 Intake Total 808.41 ml 1019.940 ml Output Total 1330 ml 40 ml Balance -521.59 ml 979.940 ml Exam Constitutional: No alert Head: atraumatic, normocephalic ENMT: intubated Neck: jvd (7cm) Respiratory: diminished breath sounds, No clear to auscultation Cardiovascular: edema (1+), No regular rate and rhythm (irregular) Gastrointestinal: soft, No distended Neurological: No nl mental status Results Result Diagram: 01/19/17 0505 01/19/17 0505 Results 24 hrs Laboratory Tests Test 01/18/17 13:10 01/18/17 18:00 01/18/17 18:16 01/18/17 19:15 Creatine Kinase 52 57 Creatine Kinase Index 7.5 10.0 Creatinine Kinase MB (Mass) 3.92 H 5.72 H Troponin I 0.254 *H 0.273 *H Blood Gas Specimen Source Blood arterial Arterial Blood Date Drawn 01/18/2017 6:33:40 PM Arterial Blood pH (Temp corrected) 7.460 H Arterial Blood pCO2 (Temp correct) 39.7 Arterial Blood pO2 (Temp corrected) 61.4 L Arterial Blood HCO3 28.7 H Arterial Blood Base Excess 3.3 H Arterial Blood Oxygen Saturation 95.6 Vinay Test ACCEPTAB Arterial Blood Gas Puncture Site Right Radial Arterial Blood Carboxyhemoglobin 0.1 Arterial Blood Methemoglobin 0.3 Blood Gas A-a O2 Differential 255.1 H Oxyhemoglobin Percent 95.2 Total Hemoglobin 12.0 Blood Gas Temperature 33.0 Blood Gas Respiration Rate 12.0 Blood Gas Actual Respiration Rate 14 Blood Gas Modality VENT - AC FiO2 50.0 Blood Gas Tidal Volume 450.0 Blood Gas Low PEEP Setting 5.0 Blood Gas Notified Whom M.D. Blood Gas Notified Time 01/18/2017 6:45:18 PM Bedside Glucose 138 White Blood Count 7.0 # Red Blood Count 3.43 L Hemoglobin 10.8 L Hematocrit 32.9 L Mean Corpuscular Volume 95.9 Mean Corpuscular Hemoglobin 31.5 Mean Corpuscular Hemoglobin Concent 32.8 Red Cell Distribution Width 20.9 H Platelet Count 26 #*L Mean Platelet Volume Neutrophils % 88.0 H Band Neutrophils % 2.0 Lymphocytes % 7.0 L Monocytes % 2.0 Eosinophils % 1.0 Neutrophils # 6.2 Lymphocytes # 0.5 L Monocytes # 0.1 L Eosinophils # 0.1 Platelet Estimate PLT APPEAR DECREASED Prothrombin Time 26.7 H Prothrombin Time Ratio 2.1 INR International Normalized Ratio 2.43 Activated Partial Thromboplast Time 45.6 H Fibrinogen 153.0 L Sodium Level 145 H Potassium Level 2.6 *L Chloride Level 101 Carbon Dioxide Level 31 Anion Gap 16 Blood Urea Nitrogen 33 #H Creatinine 2.26 #H Glucose Level 126 # Calcium Level 7.7 L Phosphorus Level 1.3 #L Magnesium Level 2.1 Test 01/18/17 19:45 01/18/17 20:53 01/18/17 22:56 01/19/17 00:40 Bedside Glucose 134 106 106 White Blood Count 17.6 #H Red Blood Count 3.99 L Hemoglobin 12.5 L Hematocrit 38.9 L Mean Corpuscular Volume 97.5 Mean Corpuscular Hemoglobin 31.3 Mean Corpuscular Hemoglobin Concent 32.1 Red Cell Distribution Width 21.3 H Platelet Count 63 #L Mean Platelet Volume Neutrophils % 92.9 H Lymphocytes % 1.7 L Monocytes % 4.5 Eosinophils % 0.1 Basophils % 0.3 Nucleated Red Blood Cells % 0.0 Neutrophils # 16.4 H Lymphocytes # 0.3 L Monocytes # 0.8 Eosinophils # 0.0 Basophils # 0.1 Nucleated Red Blood Cells # 0.0 Prothrombin Time 25.3 H Prothrombin Time Ratio 2.0 INR International Normalized Ratio 2.27 Activated Partial Thromboplast Time 42.8 H Fibrinogen 177.0 #L Creatine Kinase 61 Creatine Kinase Index 10.5 Creatinine Kinase MB (Mass) 6.41 H Troponin I 0.218 *H Test 01/19/17 00:52 01/19/17 02:34 01/19/17 05:03 01/19/17 05:05 Bedside Glucose 98 98 101 White Blood Count 23.1 #H Red Blood Count 3.97 L Hemoglobin 12.5 L Hematocrit 38.9 L Mean Corpuscular Volume 98.0 Mean Corpuscular Hemoglobin 31.5 Mean Corpuscular Hemoglobin Concent 32.1 Red Cell Distribution Width 21.2 H Platelet Count 47 L Mean Platelet Volume Neutrophils % 94.9 H Lymphocytes % 1.1 L Monocytes % 3.2 Eosinophils % 0.0 Basophils % 0.2 Nucleated Red Blood Cells % 0.0 Neutrophils # 21.9 H Lymphocytes # 0.3 L Monocytes # 0.7 Eosinophils # 0.0 Basophils # 0.1 Nucleated Red Blood Cells # 0.0 Prothrombin Time 24.2 H Prothrombin Time Ratio 1.9 INR International Normalized Ratio 2.15 Activated Partial Thromboplast Time 41.1 H Thrombin Time 18.3 Fibrinogen 170.0 L Sodium Level 145 H Potassium Level 4.5 Chloride Level 104 Carbon Dioxide Level 29 Anion Gap 17 H Blood Urea Nitrogen 37 H Creatinine 2.70 H Glucose Level 102 Lactic Acid Level 1.6 Calcium Level 7.5 L Phosphorus Level 2.3 #L Magnesium Level 2.2 Creatine Kinase 53 Creatine Kinase Index 11.1 Creatinine Kinase MB (Mass) 5.87 H Troponin I 0.160 *H Test 01/19/17 05:18 01/19/17 06:35 Lab Scanned Report BLOOD TRANSFUSION Bedside Glucose 102 Medications Medications Current Medications Ondansetron HCl (Zofran Tab) 4 mg Q6H PRN PO NAUSEA AND/OR VOMITING; Start at 09:00 Acetaminophen (Tylenol Liquid) 650 mg Q6H PRN PO PAIN LEVEL 1-3 OR FEVER; Start 01/18/17 at 09:00 Acetaminophen/ Hydrocodone Bitart ([place] (5/325)) 1 tab Q6H PRN PO PAIN LEVEL 4 -6; Start 01/18/17 at 09:00 Miscellaneous Information 1 ea NOTE XX ; Start 01/18/17 at 19:00 Glucose (Glutose) 15 gm Q15M PRN PO DECREASED GLUCOSE; Start 01/18/17 at 19:00 Glucose (Glutose) 22.5 gm Q15M PRN PO DECREASED GLUCOSE; Start 01/18/17 at 19: 00 Dextrose (D50w Syringe) 25 ml Q15M PRN IV DECREASED GLUCOSE; Start 01/18/17 at 19:00 Dextrose (D50w Syringe) 50 ml Q15M PRN IV DECREASED GLUCOSE; Start 01/18/17 at 19:00 Glucagon (Glucagen) 1 mg Q15M PRN IM DECREASED GLUCOSE; Start 01/18/17 at 19:00 Glucose 15 gm 15 gm Q15M PRN BUCCAL DECREASED GLUCOSE; Start 01/18/17 at 19:00 Dopamine HCl/ Dextrose 250 ml @ 5.25 mls/hr TITRATE IV Last administered on t 20:00; Admin Dose 18.37 MLS/HR; Start 01/18/17 at 19:00 Norepinephrine/ Dextrose (Levophed/D5W) 250 ml @ 0.46 mls/hr TITRATE IV ; Start 01/18/17 at 19:00 Famotidine 20 mg 20 mg DAILY IV Last administered on 01/19/17 08:57; Admin Dose 20 MG; Start 01/19/17 at 09:00 Levofloxacin/ Dextrose 150 ml @ 100 mls/hr Q48H IVPB Last administered on 01/18 20:38; Admin Dose 100 MLS/HR; Start 01/18/17 at 20:00 Sodium Chloride 1,000 ml @ 50 mls/hr Q20H IV Last administered on 01/18/17 20 :07; Admin Dose 50 MLS/HR; Start 01/18/17 at 19:35 Vecuronium [place]/Dextrose (Norcuron/D5W) 100 ml @ 3.72 mls/hr Q24H IV Last administered on 01/18/17 20:07; Admin Dose 3.1 MLS/HR; Start 01/18/17 at 19:35 Acetaminophen (Tylenol Supp) [address] TEMP > 37C; Start 01/18/17 at 20 :00 Acetaminophen (Tylenol Liquid) 650 mg Q4H PRN PO TEMP > 37C; Start 01/18/17 at 20:00 Acetaminophen (Tylenol Supp) [address] ; Start 01/19/17 at 20:00 Acetaminophen (Tylenol Liquid) 500 mg Q6H PO ; Start 01/19/17 at 20:00 Meperidine HCl (Demerol) 12.5 mg Q4H PRN IV POST OPERATIVE SHIVERING; Start at 20:00 Meperidine HCl (Demerol) 25 mg Q4H PRN IV POST OPERATIVE SHIVERING; Start 01/18 at 20:00 Eye Lubricant (Akwa Oint) 1 applic Q6 BOTH EYES Last administered on 01/19/17 08:57; Admin Dose 1 APPLIC; Start 01/18/17 at 20:00 Eye Lubricant (Artificial Tears Oph) 2 drop Q6 BOTH EYES Last administered on 08:57; Admin Dose 2 DROP; Start 01/19/17 at 00:00 Diagnostic Test (Pha) (Accu-Chek) 1 ea Q1H XX Last administered on 01/19/17 09 :30; Admin Dose 1 EA; Start 01/18/17 at 20:00 Dextrose (D50w Syringe) 25 ml Q15M PRN IV Till BS 80 mg/dL or above x2; Start 01/18/17 at 20:00 Dextrose 50 ml 50 ml Q15M PRN IV Till BS 80 mg/dL or above x2; Start 01/18/17 at 20:00 Cefepime HCl (Maxipime 1gm/50 ml (Pmx)) 50 ml @ 100 mls/hr Q24H IVPB ; Start at 11:00 SILVERIO MCMAHAN Jan 19, 2017 11:13
[2017-01-19] MEDS: CEFEPIME 1GM/50 ML IVPB SCH (11:55)
[2017-01-19] MEDS: VECURONIUM 100 MG in DEXTROSE 5% 100 ML IV SCH (12:10)
[2017-01-19 12:20] LABS: Allen Test ACCEPTAB; Arterial MetHb 0.3 % (0.0-1.5); MODE VENT - AC
[2017-01-19 12:22] LABS: AADO2 Arterial 596.2 mmHg (7.0-24.0); Allen Test ACCEPTAB; Arterial Base Excess -2.3 mmol/L (-3.0-3); Arterial COHb 0.4 % (0.0-3.0); Arterial Fraction of Oxyhgb 95.7 % (93.0-99.0); Arterial HCO3 26.7 mmol/L (22.0-26.0); Arterial MetHb 0.2 % (0.0-1.5); Arterial Total Hemglobin 13.7 g/dl (12.0-18.0); MODE VENT - AC
[2017-01-19] MEDS ORDERED: VANCOMYCIN IV PER PHARMACY XX SCH (12:30)
[2017-01-19] MEDS: DOPamine-D5W 1.6 MG/ML 250 ML IV SCH ×2 (13:41→15:33)
[2017-01-19] MEDS ORDERED: VANCOMYCIN 1.25 GM in SOD CHLORIDE 0.9% 250 ML IVPB ONE (14:00)
[2017-01-19] MEDS: SOD CHLORIDE 0.9% 1,000 ML IV SCH (16:14)
[2017-01-19] MEDS ORDERED: LEVETIRACETAM 1000 MG (PMX) 100 ML IVPB ONE (17:00)
[2017-01-19] MEDS ORDERED: LORAZEPAM 2 MG INJ IM PRN (18:00)
[2017-01-19 19:04] LABS: ADD SCAN DIFF NO
[2017-01-19 19:09] LABS: ABNORMAL IP MESSAGE 1; BASOPHIL # 0.1 10^3/ul (0.0-0.1); BASOPHILS % 0.2 % (0.0-2.0); HEMATOCRIT 38.2 % (42.0-52.0); HEMOGLOBIN 12.4 g/dl (14.0-18.0); LYMPHOCYTES # 0.5 10^3/ul (0.8-2.9); LYMPHOCYTES % 2.1 % (15.0-51.0); MEAN CORPUSCULAR HEMOGLOBIN 31.3 pg (29.0-33.0); MEAN CORPUSCULAR HGB CONC 32.5 g/dl (32.0-37.0); MEAN CORPUSCULAR VOLUME 96.5 fl (82.0-101.0); MONOCYTE # 0.8 10^3/ul (0.3-0.9); MONOCYTES % 3.6 % (0.0-11.0); NEUTROPHIL # 20.7 10^3/ul (1.6-7.5); NEUTROPHILS % 93.4 % (39.0-77.0); PLATELET COUNT 55 10^3/UL (140-415); RED BLOOD COUNT 3.96 10^6/ul (4.70-6.10); RED CELL DISTRIBUTION WIDTH 21.4 % (11.5-14.5); WHITE BLOOD COUNT 22.2 10^3/ul (4.8-10.8)
[2017-01-19] MEDS ORDERED: INSULIN ASPART [NOVOLOG] 3 ML PEN SC SCH (19:30)
[2017-01-19 19:35] LABS: INR 2.28; PROTIME 25.4 Sec (12.2-14.2)
[2017-01-19 19:40] LABS: CALCIUM 7.8 mg/dl (8.4-10.2); CREATININE 2.93 mg/dl (0.61-1.24); MAGNESIUM 2.1 mg/dl (1.7-2.5); PHOSPHORUS 2.3 mg/dl (2.5-4.9); POTASSIUM 4.8 mmol/L (3.5-5.1)
[2017-01-19 19:47] LABS: CK-MB 5.01 ng/ml (0.0-2.4); TROPONIN-I 0.135 ng/ml (0.00-0.12)
[2017-01-19] MEDS: ACETAMINOPHEN 650MG/20.3ML CUP PO SCH (20:00)
[2017-01-19] MEDS: ACETAMINOPHEN 650 MG SUPP PR SCH (20:00)
[2017-01-19] MEDS ORDERED: VALPROATE INJ 500 MG in SOD CHLORIDE 0.9% 50 ML IVPB PRN (20:00)
[2017-01-19 20:16] LABS: PARTIAL THROMBOPLASTIN TIME 39.1 Sec (25.0-35.0)
[2017-01-19] MEDS: DEXTROSE 5%-0.45% NACL 1,000 ML IV SCH (20:37)
[2017-01-19] MEDS: LORAZEPAM 2 MG INJ IV PRN (20:50)
[2017-01-20] VITALS (105 sets, daily range): BP systolic 81–133; BP diastolic 29–56; PULSE 72–117; RESP 20–29
[2017-01-20] MEDS: ARTIFICIAL TEARS 15 ML OPH BOTH EYES SCH ×5 (00:05→23:59)
[2017-01-20] MEDS: OCULAR LUBRICANT 3.5 GM OPH OINT BOTH EYES SCH ×5 (00:05→23:59)
[2017-01-20] MEDS: ACCU-CHEK XX SCH ×13 (00:06→11:52)
[2017-01-20] MEDS: LEVETIRACETAM 500 MG (PMX) 100 ML IVPB SCH ×2 (00:37→09:01)
[2017-01-20] MEDS: PROPOFOL 100 ML IV SCH ×2 (01:33→20:44)
[2017-01-20] MEDS: ACETAMINOPHEN 650 MG SUPP PR SCH ×4 (02:00→20:00)
[2017-01-20] MEDS: ACETAMINOPHEN 650MG/20.3ML CUP PO SCH ×2 (02:00→08:00)
[2017-01-20 02:23] LABS: TROPONIN-I 0.211 ng/ml (0.00-0.12)
[2017-01-20 04:36] LABS: ADD SCAN DIFF NO
[2017-01-20 04:42] LABS: ABNORMAL IP MESSAGE 1; BASOPHILS % 0.2 % (0.0-2.0); EOSINOPHILS % 0.1 % (0.0-7.0); HEMATOCRIT 31.7 % (42.0-52.0); HEMOGLOBIN 10.6 g/dl (14.0-18.0); LYMPHOCYTES # 0.6 10^3/ul (0.8-2.9); LYMPHOCYTES % 3.2 % (15.0-51.0); MEAN CORPUSCULAR HEMOGLOBIN 31.9 pg (29.0-33.0); MEAN CORPUSCULAR HGB CONC 33.4 g/dl (32.0-37.0); MEAN CORPUSCULAR VOLUME 95.5 fl (82.0-101.0); MONOCYTES % 4.9 % (0.0-11.0); NEUTROPHIL # 17.9 10^3/ul (1.6-7.5); NEUTROPHILS % 90.9 % (39.0-77.0); PLATELET COUNT 65 10^3/UL (140-415); RED BLOOD COUNT 3.32 10^6/ul (4.70-6.10); RED CELL DISTRIBUTION WIDTH 21.3 % (11.5-14.5); WHITE BLOOD COUNT 19.7 10^3/ul (4.8-10.8)
[2017-01-20 05:13] LABS: ALBUMIN 2.8 g/dl (3.3-4.9); ALBUMIN/GLOBULIN RATIO 0.93; BILIRUBIN,DIRECT 0.5 mg/dl (0.00-0.20); BILIRUBIN,INDIRECT 1.2 mg/dl (0-1.1); BILIRUBIN,TOTAL 1.7 mg/dl (0.2-1.3); CALCIUM 7.9 mg/dl (8.4-10.2); CREATININE 3.15 mg/dl (0.61-1.24); POTASSIUM 5.1 mmol/L (3.5-5.1); TOTAL PROTEIN 5.8 g/dl (6.1-8.1)
[2017-01-20] MEDS: Insulin NOVOLOG SS MILD Algorithm (NPO/TPN/ENTERAL FEEDS) SC SCH ×4 (05:24→18:00)
[2017-01-20 05:26] LABS: CK-MB 2.24 ng/ml (0.0-2.4); TROPONIN-I 0.258 ng/ml (0.00-0.12)
[2017-01-20] MEDS: LORAZEPAM 2 MG INJ IV PRN (06:25)
--- NOTE | 2017-01-20 06:39 | RADRPT ---
PROCEDURE: Chest. CLINICAL INDICATION: Chest pain. TECHNIQUE: Single frontal view of the chest was obtained. COMPARISON: 01/19/2017. FINDINGS: There is an endotracheal tube 5.5 cm above the sage. There is a left-sided Perma-Cath extending t o the SVC. There is a right subclavian central venous cath extending to the SVC/RA junction. Media sternotomy wires and prosthetic valve are present. The cardiac silhouette is enlarged. The aortic arch is unremarkable. There is pulmonary venous congestion. There are moderate right and small lef t-sided pleural effusions with underlying atelectasis. There is no pneumothorax. IMPRESSION: Moderate cardiomegaly and pulmonary venous congestion, unchanged. Moderate right and small left-sided pleural effusion with underlying atelectasis, unchanged. Tube and lines in place. .Joshua Mckee MD, Date Time Electronically viewed and signed by .Joshua Mckee MD, MD on 01/20/2017 06:38 .T/
--- NOTE | 2017-01-20 08:33 | PN ---
Date/Time of Note Date/Time of Note DATE: 01/20/17 TIME: 08:28 Assessment/Plan Lines/Catheters IV Catheter Type (from Nrsg): PERMACATH Urinary Cath still in place: Yes Assessment/Plan Chief Complaint/Hosp Course 1. End-stage renal disease -Plan for dialysis today 2. Anemia monitor H&H levels 3. Mineral bone disorder monitor calcium phosphorus level 4. Cardiopulmonary arrest status post hypothermia protocol 5. Shock etiology is cardiogenic possible septic. -Continue current antibiotic regimen -Follow-up with infectious disease 6. Ventilator dependent respiratory failure events has been reviewed ABGs reviewed -Follow-up with pulmonary 7. Liver cirrhosis continue supportive care 8. Mechanical AVR 2007 2008 -Monitor INR Problems: Subjective 24 Hr Interval Summary Free Text/Dictation Patient is critically ill on full ventilatory support -Status post hypothermia protocol Exam/Review of Systems Vital Signs Vitals Vital Signs Date Time Temp Pulse Resp B/P Pulse Ox O2 Delivery O2 Flow Rate FiO2 01/20/17 06:30 93 117/42 94 01/20/17 06:15 98.7 01/20/17 06:00 Mechanical Ventilator 01/20/17 05:05 28 100 Intake and Output 01/19/17 01/19/17 01/20/17 15:00 23:00 07:00 Intake Total 597.3 ml 741.97 ml 492.63 ml Output Total 0 ml 20 ml Balance 597.3 ml 741.97 ml 472.63 ml Exam ENERAL: Chronically ill-appearing on immediate gentleman intubated on mechanical ventilation currently on vecuronium and propofol NECK: Supple. No JVD or lymphadenopathy. CARDIAC EXAM: S1, S2. No added sounds or murmurs. CHEST: clear bilaterally, No added sounds, rales or wheezes ABDOMEN: Soft, nontender. No guarding or rebound. EXTREMITIES: No cyanosis, clubbing or edema. NEUROLOGIC: unable to assess Results Result Diagram: 01/20/17 0430 01/20/17 0430 Results 24 hrs Laboratory Tests Test 01/19/17 12:03 01/19/17 15:03 01/19/17 17:48 01/19/17 18:21 Bedside Glucose 90 119 85 White Blood Count 22.2 H Red Blood Count 3.96 L Hemoglobin 12.4 L Hematocrit 38.2 L Mean Corpuscular Volume 96.5 Mean Corpuscular Hemoglobin 31.3 Mean Corpuscular Hemoglobin Concent 32.5 Red Cell Distribution Width 21.4 H Platelet Count 55 L Mean Platelet Volume Neutrophils % 93.4 H Lymphocytes % 2.1 L Monocytes % 3.6 Eosinophils % 0.0 Basophils % 0.2 Nucleated Red Blood Cells % 0.0 Neutrophils # 20.7 H Lymphocytes # 0.5 L Monocytes # 0.8 Eosinophils # 0.0 Basophils # 0.1 Nucleated Red Blood Cells # 0.0 Prothrombin Time 25.4 H Prothrombin Time Ratio 2.0 INR International Normalized Ratio 2.28 Activated Partial Thromboplast Time 39.1 H Fibrinogen 228.0 # Sodium Level 143 Potassium Level 4.8 Chloride Level 105 Carbon Dioxide Level 24 Anion Gap 19 H Blood Urea Nitrogen 43 H Creatinine 2.93 H Glucose Level 80 Calcium Level 7.8 L Phosphorus Level 2.3 L Magnesium Level 2.1 Creatine Kinase 42 Creatine Kinase Index 11.9 Creatinine Kinase MB (Mass) 5.01 H Troponin I 0.135 *H Test 01/19/17 19:58 01/20/17 00:02 01/20/17 00:42 01/20/17 04:30 Bedside Glucose 77 170 Creatine Kinase 44 43 Creatine Kinase Index 6.8 5.2 Creatinine Kinase MB (Mass) 3.00 H 2.24 Troponin I 0.211 *H 0.258 *H White Blood Count 19.7 H Red Blood Count 3.32 L Hemoglobin 10.6 L Hematocrit 31.7 L Mean Corpuscular Volume 95.5 Mean Corpuscular Hemoglobin 31.9 Mean Corpuscular Hemoglobin Concent 33.4 Red Cell Distribution Width 21.3 H Platelet Count 65 L Mean Platelet Volume Neutrophils % 90.9 H Lymphocytes % 3.2 L Monocytes % 4.9 Eosinophils % 0.1 Basophils % 0.2 Nucleated Red Blood Cells % 0.0 Neutrophils # 17.9 H Lymphocytes # 0.6 L Monocytes # 1.0 H Eosinophils # 0.0 Basophils # 0.0 Nucleated Red Blood Cells # 0.0 Sodium Level 140 Potassium Level 5.1 Chloride Level 104 Carbon Dioxide Level 25 Anion Gap 16 Blood Urea Nitrogen 48 H Creatinine 3.15 H Glucose Level 98 Calcium Level 7.9 L Phosphorus Level 2.0 L Magnesium Level 2.0 Total Bilirubin 1.7 H Direct Bilirubin 0.50 #H Indirect Bilirubin 1.2 H Aspartate Amino Transf (AST/SGOT) 37 Alanine Aminotransferase (ALT/SGPT) 28 Alkaline Phosphatase 165 H Total Protein 5.8 L Albumin 2.8 L Globulin 3.00 Albumin/Globulin Ratio 0.93 Test 01/20/17 05:21 Bedside Glucose 97 Medications Medications Current Medications Ondansetron HCl (Zofran Tab) 4 mg Q6H PRN PO NAUSEA AND/OR VOMITING; Start at 09:00 Acetaminophen (Tylenol Liquid) 650 mg Q6H PRN PO PAIN LEVEL 1-3 OR FEVER; Start 01/18/17 at 09:00 Acetaminophen/ Hydrocodone Bitart ([place] (5/325)) 1 tab Q6H PRN PO PAIN LEVEL 4 -6; Start 01/18/17 at 09:00 Miscellaneous Information 1 ea NOTE XX ; Start 01/18/17 at 19:00 Glucose (Glutose) 15 gm Q15M PRN PO DECREASED GLUCOSE; Start 01/18/17 at 19:00 Glucose (Glutose) 22.5 gm Q15M PRN PO DECREASED GLUCOSE; Start 01/18/17 at 19: 00 Dextrose (D50w Syringe) 25 ml Q15M PRN IV DECREASED GLUCOSE; Start 01/18/17 at 19:00 Dextrose (D50w Syringe) 50 ml Q15M PRN IV DECREASED GLUCOSE; Start 01/18/17 at 19:00 Glucagon (Glucagen) 1 mg Q15M PRN IM DECREASED GLUCOSE; Start 01/18/17 at 19:00 Glucose 15 gm 15 gm Q15M PRN BUCCAL DECREASED GLUCOSE; Start 01/18/17 at 19:00 Dopamine HCl/ Dextrose 250 ml @ 5.25 mls/hr TITRATE IV Last administered on 15:33; Admin Dose 10.5 MLS/HR; Start 01/18/17 at 19:00 Norepinephrine/ Dextrose (Levophed/D5W) 250 ml @ 0.46 mls/hr TITRATE IV Last administered on 01/19/17 20:37; Admin Dose 1.87 MLS/HR; Start 01/18/17 at 19:00 Famotidine 20 mg 20 mg DAILY IV Last administered on 01/19/17 08:57; Admin Dose 20 MG; Start 01/19/17 at 09:00 Levofloxacin/ Dextrose (Levaquin 750 Mg/ D5W 150 ml (Pmx)) 150 ml @ 100 mls/hr Q48H IVPB Last administered on 01/18/17 20:38; Admin Dose 100 MLS/HR; Start at 20:00 Acetaminophen (Tylenol Supp) 650 mg Q4H PRN [place] TEMP > 37C; Start 01/18/17 at 20 :00 Acetaminophen (Tylenol Liquid) 650 mg Q4H PRN PO TEMP > 37C; Start 01/18/17 at 20:00 Acetaminophen (Tylenol Supp) 500 mg Q6H ND ; Start 01/19/17 at 20:00 Acetaminophen (Tylenol Liquid) 500 mg Q6H PO ; Start 01/19/17 at 20:00 Meperidine HCl (Demerol) 12.5 mg Q4H PRN IV POST OPERATIVE SHIVERING; Start at 20:00 Meperidine HCl (Demerol) 25 mg Q4H PRN IV POST OPERATIVE SHIVERING; Start 01/18 at 20:00 Eye Lubricant ([place] Oint) 1 applic Q6 BOTH EYES Last administered on 01/20/17 05:24; Admin Dose 1 APPLIC; Start 01/18/17 at 20:00 Eye Lubricant (Artificial Tears Oph) 2 drop Q6 BOTH EYES Last administered on 05:24; Admin Dose 2 DROP; Start 01/19/17 at 00:00 Diagnostic Test (Pha) (Accu-Chek) 1 ea Q1H XX Last administered on 01/20/17 05 :24; Admin Dose 1 EA; Start 01/18/17 at 20:00 Dextrose (D50w Syringe) 25 ml Q15M PRN IV Till BS 80 mg/dL or above x2; Start 01/18/17 at 20:00 Dextrose 50 ml 50 ml Q15M PRN IV Till BS 80 mg/dL or above x2; Start 01/18/17 at 20:00 Cefepime HCl 50 ml @ 100 mls/hr Q24H IVPB Last administered on 01/19/17 11:55 ; Admin Dose 100 MLS/HR; Start 01/19/17 at 11:00 Vecuronium [place] 100 mg/ Dextrose 100 ml @ 3.72 mls/hr Q24H IV Last administered on 01/19/17 12:10; Admin Dose 3.72 MLS/HR; Start 01/19/17 at 12:10 Levetiracetam (Keppra 500 Mg/ 100ml (Pmx)) 100 ml @ 400 mls/hr Q12 IVPB Last administered on 01/20/17 00:37; Admin Dose 400 MLS/HR; Start 01/20/17 at 01:00 Lorazepam (Ativan) 2 mg Q2H PRN IV SEIZURES Last administered on 01/20/17 06: 25; Admin Dose 2 MG; Start 01/19/17 at 18:00 Insulin Aspart (Adult SC Insulin - Mild Algorithm)... Q6 SC ; Start 01/20/17 at 00:00 Valproate Sodium 500 mg/Sodium Chloride 55 ml @ 55 mls/hr Q4H PRN IVPB SEIZURES ; Start 01/19/17 at 20:00 Dextrose/Sodium Chloride (D5-1/2ns) 1,000 ml @ 50 mls/hr Q20H IV Last administered on 01/19/17 20:37; Admin Dose 50 MLS/HR; Start 01/19/17 at 20:30 BRENDA HANKINS DO Jan 20, 2017 08:33
[2017-01-20] MEDS: DEXTROSE 5%-0.45% NACL 1,000 ML IV SCH (08:34)
[2017-01-20] MEDS: FAMOTIDINE 20 MG INJ IV SCH (09:00)
[2017-01-20 09:19] LABS: AADO2 Arterial 258.9 mmHg (7.0-24.0); Arterial Base Excess -2.2 mmol/L (-3.0-3); Arterial COHb 0.6 % (0.0-3.0); Arterial Fraction of Oxyhgb 88.5 % (93.0-99.0); Arterial HCO3 25.5 mmol/L (22.0-26.0); Arterial Total Hemglobin 13.5 g/dl (12.0-18.0)
--- NOTE | 2017-01-20 10:15 | PN ---
Date/Time of Note Date/Time of Note DATE: 01/20/17 TIME: 09:49 Assessment/Plan VTE Prophylaxis VTE Prophylaxis Intervention: SCD's Lines/Catheters IV Catheter Type (from Nrs): PERMACATH Urinary Cath still in place: Yes Reason Cath still needed: urinary retention Assessment/Plan Chief Complaint/Hosp Course Assessment/Plan: 66 yo M with pmhx cirrhosis, ESRD on HD, h/o AVR previously on Coumadin admitted following VFib arrest. #VFib arrest with ROSC: suspect 2/2 underlying heart disease/CAD with scar tissue into cardiac electrical system; no STEMI on EKG, hypothermia protocol complete. rewarming has also completed now -cardiology on consult - f/u rec's, monitor for now -trending troponin per cardiology rec -pulm following - will also order EEG, f/u Neuro rec's - for sz activity - increasse anti-sz meds. #ESRD on HD: nephrology cs - f/u their rec's regarding HD #cirrhosis: judicious fluids - monitor plt levels as well (low) #h/o AVR previously on Coumadin -cardiology following - monitor #?aspiration pna: empiric abx #hematuria - per family, possible Hx of bladder ca in the past - monitor - get consult DVT prophx: SQH and SCDs Family updated at the bedside today as well. Consider palliative consult. Critical care time: 45 minutes Problems: Subjective 24 Hr Interval Summary Free Text/Dictation Pt still intubated, possibly having seizures as well. Exam/Review of Systems Vital Signs Vitals Vital Signs Date Time Temp Pulse Resp B/P Pulse Ox O2 Delivery O2 Flow Rate FiO2 01/20/17 09:15 101 110/49 97 01/20/17 09:00 Mechanical Ventilator 01/20/17 08:00 100.2 01/20/17 05:05 28 100 Intake and Output 01/19/17 01/19/17 01/20/17 15:00 23:00 07:00 Intake Total 597.3 ml 741.97 ml 492.63 ml Output Total 0 ml 20 ml Balance 597.3 ml 741.97 ml 472.63 ml Exam intubated and sedated lungs clear no mrg nL BS, NT, ND, soft HD catheter c/d/i no le edema Results Result Diagram: 01/20/1742901/20/17 0430 Results 24 hrs Laboratory Tests Test 01/19/17 12:03 01/19/17 15:03 01/19/17 17:48 01/19/17 18:21 Bedside Glucose 90 119 85 White Blood Count 22.2 H Red Blood Count 3.96 L Hemoglobin 12.4 L Hematocrit 38.2 L Mean Corpuscular Volume 96.5 Mean Corpuscular Hemoglobin 31.3 Mean Corpuscular Hemoglobin Concent 32.5 Red Cell Distribution Width 21.4 H Platelet Count 55 L Mean Platelet Volume Neutrophils % 93.4 H Lymphocytes % 2.1 L Monocytes % 3.6 Eosinophils % 0.0 Basophils % 0.2 Nucleated Red Blood Cells % 0.0 Neutrophils # 20.7 H Lymphocytes # 0.5 L Monocytes # 0.8 Eosinophils # 0.0 Basophils # 0.1 Nucleated Red Blood Cells # 0.0 Prothrombin Time 25.4 H Prothrombin Time Ratio 2.0 INR International Normalized Ratio 2.28 Activated Partial Thromboplast Time 39.1 H Fibrinogen 228.0 # Sodium Level 143 Potassium Level 4.8 Chloride Level 105 Carbon Dioxide Level 24 Anion Gap 19 H Blood Urea Nitrogen 43 H Creatinine 2.93 H Glucose Level 80 Calcium Level 7.8 L Phosphorus Level 2.3 L Magnesium Level 2.1 Creatine Kinase 42 Creatine Kinase Index 11.9 Creatinine Kinase MB (Mass) 5.01 H Troponin I 0.135 *H Test 01/19/17 19:58 01/20/17 00:02 01/20/17 00:42 01/20/17 04:30 Bedside Glucose 77 170 Creatine Kinase 44 43 Creatine Kinase Index 6.8 5.2 Creatinine Kinase MB (Mass) 3.00 H 2.24 Troponin I 0.211 *H 0.258 *H White Blood Count 19.7 H Red Blood Count 3.32 L Hemoglobin 10.6 L Hematocrit 31.7 L Mean Corpuscular Volume 95.5 Mean Corpuscular Hemoglobin 31.9 Mean Corpuscular Hemoglobin Concent 33.4 Red Cell Distribution Width 21.3 H Platelet Count 65 L Mean Platelet Volume Neutrophils % 90.9 H Lymphocytes % 3.2 L Monocytes % 4.9 Eosinophils % 0.1 Basophils % 0.2 Nucleated Red Blood Cells % 0.0 Neutrophils # 17.9 H Lymphocytes # 0.6 L Monocytes # 1.0 H Eosinophils # 0.0 Basophils # 0.0 Nucleated Red Blood Cells # 0.0 Sodium Level 140 Potassium Level 5.1 Chloride Level 104 Carbon Dioxide Level 25 Anion Gap 16 Blood Urea Nitrogen 48 H Creatinine 3.15 H Glucose Level 98 Calcium Level 7.9 L Phosphorus Level 2.0 L Magnesium Level 2.0 Total Bilirubin 1.7 H Direct Bilirubin 0.50 #H Indirect Bilirubin 1.2 H Aspartate Amino Transf (AST/SGOT) 37 Alanine Aminotransferase (ALT/SGPT) 28 Alkaline Phosphatase 165 H Total Protein 5.8 L Albumin 2.8 L Globulin 3.00 Albumin/Globulin Ratio 0.93 Test 01/20/17 05:21 Bedside Glucose 97 Medications Medications Current Medications Ondansetron HCl (Zofran Tab) 4 mg Q6H PRN PO NAUSEA AND/OR VOMITING; Start at 09:00 Acetaminophen (Tylenol Liquid) 650 mg Q6H PRN PO PAIN LEVEL 1-3 OR FEVER; Start 01/18/17 at 09:00 Acetaminophen/ Hydrocodone Bitart ([place] (5/325)) 1 tab Q6H PRN PO PAIN LEVEL 4 -6; Start 01/18/17 at 09:00 Miscellaneous Information 1 ea NOTE XX ; Start 01/18/17 at 19:00 Glucose (Glutose) 15 gm Q15M PRN PO DECREASED GLUCOSE; Start 01/18/17 at 19:00 Glucose (Glutose) 22.5 gm Q15M PRN PO DECREASED GLUCOSE; Start 01/18/17 at 19: 00 Dextrose (D50w Syringe) 25 ml Q15M PRN IV DECREASED GLUCOSE; Start 01/18/17 at 19:00 Dextrose (D50w Syringe) 50 ml Q15M PRN IV DECREASED GLUCOSE; Start 01/18/17 at 19:00 Glucagon (Glucagen) 1 mg Q15M PRN IM DECREASED GLUCOSE; Start 01/18/17 at 19:00 Glucose 15 gm 15 gm Q15M PRN BUCCAL DECREASED GLUCOSE; Start 01/18/17 at 19:00 Dopamine HCl/ Dextrose 250 ml @ 5.25 mls/hr TITRATE IV Last administered on 15:33; Admin Dose 10.5 MLS/HR; Start 01/18/17 at 19:00 Norepinephrine/ Dextrose (Levophed/D5W) 250 ml @ 0.46 mls/hr TITRATE IV Last administered on 01/19/17 20:37; Admin Dose 1.87 MLS/HR; Start 01/18/17 at 19:00 Famotidine 20 mg 20 mg DAILY IV Last administered on 01/20/17 09:00; Admin Dose 20 MG; Start 01/19/17 at 09:00 Levofloxacin/ Dextrose (Levaquin 750 Mg/ D5W 150 ml (Pmx)) 150 ml @ 100 mls/hr Q48H IVPB Last administered on 01/18/17 20:38; Admin Dose 100 MLS/HR; Start at 20:00 Acetaminophen (Tylenol Supp) 650 mg Q4H PRN [place] TEMP > 37C; Start 01/18/17 at 20 :00 Acetaminophen (Tylenol Liquid) 650 mg Q4H PRN PO TEMP > 37C; Start 01/18/17 at 20:00 Acetaminophen (Tylenol Supp) 500 mg Q6H [place] Last administered on 01/20/17 09:00 ; Admin Dose 500 MG; Start 01/19/17 at 20:00 Acetaminophen (Tylenol Liquid) 500 mg Q6H PO ; Start 01/19/17 at 20:00 Meperidine HCl (Demerol) 12.5 mg Q4H PRN IV POST OPERATIVE SHIVERING; Start at 20:00 Meperidine HCl (Demerol) 25 mg Q4H PRN IV POST OPERATIVE SHIVERING; Start 01/18 at 20:00 Eye Lubricant ([place] Oint) 1 applic Q6 BOTH EYES Last administered on 01/20/17 05:24; Admin Dose 1 APPLIC; Start 01/18/17 at 20:00 Eye Lubricant (Artificial Tears Oph) 2 drop Q6 BOTH EYES Last administered on 05:24; Admin Dose 2 DROP; Start 01/19/17 at 00:00 Diagnostic Test (Pha) (Accu-Chek) 1 ea Q1H XX Last administered on 01/20/17 05 :24; Admin Dose 1 EA; Start 01/18/17 at 20:00 Dextrose (D50w Syringe) 25 ml Q15M PRN IV Till BS 80 mg/dL or above x2; Start 01/18/17 at 20:00 Dextrose 50 ml 50 ml Q15M PRN IV Till BS 80 mg/dL or above x2; Start 01/18/17 at 20:00 Cefepime HCl 50 ml @ 100 mls/hr Q24H IVPB Last administered on 01/19/17 11:55 ; Admin Dose 100 MLS/HR; Start 01/19/17 at 11:00 Vecuronium [place] 100 mg/ Dextrose 100 ml @ 3.72 mls/hr Q24H IV Last administered on 01/19/17 12:10; Admin Dose 3.72 MLS/HR; Start 01/19/17 at 12:10 Levetiracetam (Keppra 500 Mg/ 100ml (Pmx)) 100 ml @ 400 mls/hr Q12 IVPB Last administered on 01/20/17 09:01; Admin Dose 400 MLS/HR; Start 01/20/17 at 01:00 Lorazepam (Ativan) 2 mg Q2H PRN IV SEIZURES Last administered on 01/20/17 06: 25; Admin Dose 2 MG; Start 01/19/17 at 18:00 Insulin Aspart (Adult SC Insulin - Mild Algorithm)... Q6 SC ; Start 01/20/17 at 00:00 Valproate Sodium 500 mg/Sodium Chloride 55 ml @ 55 mls/hr Q4H PRN IVPB SEIZURES ; Start 01/19/17 at 20:00 Dextrose/Sodium Chloride (D5-1/2ns) 1,000 ml @ 50 mls/hr Q20H IV Last administered on 01/20/17 08:34; Admin Dose 50 MLS/HR; Start 01/19/17 at 20:30 Procedures Procedures 2D ECHO: Conclusions Moderate concentric left ventricular hypertrophy. Moderate enlargement of left ventricle cavity. Ejection fraction is visually estimated at 55 %. Aortic Valve Mechanical Prosthesis (Bileaflet). Aortic valve Max velocity 2.62 m/sec. Max PG 27.00 mmHg. Mean PG 12.00 mmHg. Aortic valve area 1.50 cm2. Moderate to severe eccentric aortic valve regurgitation, possibly paravalvular though shadowing limits evaluation. Estimated peak PA systolic pressure 36 mmHg based on RA pressure of 8 mmHg. OSMAN SAMUEL Jan 20, 2017 09:59
[2017-01-20] MEDS: MIDAZOLAM (DRIP) 50 mg/50 mL 50 ML IV SCH ×2 (10:34→20:44)
[2017-01-20] MEDS: CEFEPIME 1GM/50 ML IVPB SCH (10:34)
[2017-01-20 10:51] LABS: PLATELET COUNT 26 10^3/UL (140-415)
--- NOTE | 2017-01-20 11:29 | CONS ---
Date/Time of Note Date/Time of Note DATE: 01/20/17 TIME: 11:27 Consult Date/Type/Reason Admit Date/Time Jan 18, 2017 at 09:01 Initial Consult Date 01/18/17 Type of Consultation: Pulmonary ICU Ordering Provider: MAGALI FROST MD Subjective Patient unresponsive on mechanical ventilation evidence of seizure activity Objective Vital Signs Date Time Temp Pulse Resp B/P Pulse Ox O2 Delivery O2 Flow Rate FiO2 01/20/17 09:15 101 110/49 97 01/20/17 09:00 Mechanical Ventilator 01/20/17 08:56 29 100 01/20/17 08:00 100.2 Intake and Output 01/19/17 01/19/17 01/20/17 15:00 23:00 07:00 Intake Total 597.3 ml 741.97 ml 492.63 ml Output Total 0 ml 20 ml Balance 597.3 ml 741.97 ml 472.63 ml Exam GENERAL: Chronically ill-appearing on immediate gentleman intubated on mechanical ventilation currently propofol and Versed VITAL SIGNS: per chart NECK: Supple. No JVD or lymphadenopathy. CARDIAC EXAM: S1, S2. No added sounds or murmurs. CHEST: clear bilaterally, No added sounds, rales or wheezes ABDOMEN: Soft, nontender. No guarding or rebound. EXTREMITIES: No cyanosis, clubbing or edema. NEUROLOGIC: unable to assess Results/Medications Result Diagram: 01/20/17 0430 01/20/17 0430 Results 24 hrs Laboratory Tests Test 01/19/17 12:03 01/19/17 15:03 01/19/17 17:48 01/19/17 18:21 Bedside Glucose 90 119 85 White Blood Count 22.2 H Red Blood Count 3.96 L Hemoglobin 12.4 L Hematocrit 38.2 L Mean Corpuscular Volume 96.5 Mean Corpuscular Hemoglobin 31.3 Mean Corpuscular Hemoglobin Concent 32.5 Red Cell Distribution Width 21.4 H Platelet Count 55 L Mean Platelet Volume Neutrophils % 93.4 H Lymphocytes % 2.1 L Monocytes % 3.6 Eosinophils % 0.0 Basophils % 0.2 Nucleated Red Blood Cells % 0.0 Neutrophils # 20.7 H Lymphocytes # 0.5 L Monocytes # 0.8 Eosinophils # 0.0 Basophils # 0.1 Nucleated Red Blood Cells # 0.0 Prothrombin Time 25.4 H Prothrombin Time Ratio 2.0 INR International Normalized Ratio 2.28 Activated Partial Thromboplast Time 39.1 H Fibrinogen 228.0 # Sodium Level 143 Potassium Level 4.8 Chloride Level 105 Carbon Dioxide Level 24 Anion Gap 19 H Blood Urea Nitrogen 43 H Creatinine 2.93 H Glucose Level 80 Calcium Level 7.8 L Phosphorus Level 2.3 L Magnesium Level 2.1 Creatine Kinase 42 Creatine Kinase Index 11.9 Creatinine Kinase MB (Mass) 5.01 H Troponin I 0.135 *H Test 01/19/17 19:58 01/20/17 00:02 01/20/17 00:42 01/20/17 04:30 Bedside Glucose 77 170 Creatine Kinase 44 43 Creatine Kinase Index 6.8 5.2 Creatinine Kinase MB (Mass) 3.00 H 2.24 Troponin I 0.211 *H 0.258 *H White Blood Count 19.7 H Red Blood Count 3.32 L Hemoglobin 10.6 L Hematocrit 31.7 L Mean Corpuscular Volume 95.5 Mean Corpuscular Hemoglobin 31.9 Mean Corpuscular Hemoglobin Concent 33.4 Red Cell Distribution Width 21.3 H Platelet Count 65 L Mean Platelet Volume Neutrophils % 90.9 H Lymphocytes % 3.2 L Monocytes % 4.9 Eosinophils % 0.1 Basophils % 0.2 Nucleated Red Blood Cells % 0.0 Neutrophils # 17.9 H Lymphocytes # 0.6 L Monocytes # 1.0 H Eosinophils # 0.0 Basophils # 0.0 Nucleated Red Blood Cells # 0.0 Sodium Level 140 Potassium Level 5.1 Chloride Level 104 Carbon Dioxide Level 25 Anion Gap 16 Blood Urea Nitrogen 48 H Creatinine 3.15 H Glucose Level 98 Calcium Level 7.9 L Phosphorus Level 2.0 L Magnesium Level 2.0 Total Bilirubin 1.7 H Direct Bilirubin 0.50 #H Indirect Bilirubin 1.2 H Aspartate Amino Transf (AST/SGOT) 37 Alanine Aminotransferase (ALT/SGPT) 28 Alkaline Phosphatase 165 H Total Protein 5.8 L Albumin 2.8 L Globulin 3.00 Albumin/Globulin Ratio 0.93 Test 01/20/17 05:21 Bedside Glucose 97 Medications Current Medications Ondansetron HCl (Zofran Tab) 4 mg Q6H PRN PO NAUSEA AND/OR VOMITING; Start at 09:00 Acetaminophen (Tylenol Liquid) 650 mg Q6H PRN PO PAIN LEVEL 1-3 OR FEVER; Start 01/18/17 at 09:00 Acetaminophen/ Hydrocodone Bitart ([place] (5/325)) 1 tab Q6H PRN PO PAIN LEVEL 4 -6; Start 01/18/17 at 09:00 Miscellaneous Information 1 ea NOTE XX ; Start 01/18/17 at 19:00 Glucose (Glutose) 15 gm Q15M PRN PO DECREASED GLUCOSE; Start 01/18/17 at 19:00 Glucose (Glutose) 22.5 gm Q15M PRN PO DECREASED GLUCOSE; Start 01/18/17 at 19: 00 Dextrose (D50w Syringe) 25 ml Q15M PRN IV DECREASED GLUCOSE; Start 01/18/17 at 19:00 Dextrose (D50w Syringe) 50 ml Q15M PRN IV DECREASED GLUCOSE; Start 01/18/17 at 19:00 Glucagon (Glucagen) 1 mg Q15M PRN IM DECREASED GLUCOSE; Start 01/18/17 at 19:00 Glucose 15 gm 15 gm Q15M PRN BUCCAL DECREASED GLUCOSE; Start 01/18/17 at 19:00 Dopamine HCl/ Dextrose 250 ml @ 5.25 mls/hr TITRATE IV Last administered on 15:33; Admin Dose 10.5 MLS/HR; Start 01/18/17 at 19:00 Norepinephrine/ Dextrose (Levophed/D5W) 250 ml @ 0.46 mls/hr TITRATE IV Last administered on 01/19/17 20:37; Admin Dose 1.87 MLS/HR; Start 01/18/17 at 19:00 Famotidine 20 mg 20 mg DAILY IV Last administered on 01/20/17 09:00; Admin Dose 20 MG; Start 01/19/17 at 09:00 Levofloxacin/ Dextrose (Levaquin 750 Mg/ D5W 150 ml (Pmx)) 150 ml @ 100 mls/hr Q48H IVPB Last administered on 01/18/17 20:38; Admin Dose 100 MLS/HR; Start at 20:00 Acetaminophen (Tylenol Supp) 650 mg Q4H PRN [place] TEMP > 37C; Start 01/18/17 at 20 :00 Acetaminophen (Tylenol Liquid) 650 mg Q4H PRN PO TEMP > 37C; Start 01/18/17 at 20:00 Acetaminophen (Tylenol Supp) 500 mg Q6H [place] Last administered on 01/20/17 09:00 ; Admin Dose 500 MG; Start 01/19/17 at 20:00 Meperidine HCl (Demerol) 12.5 mg Q4H PRN IV POST OPERATIVE SHIVERING; Start at 20:00 Meperidine HCl (Demerol) 25 mg Q4H PRN IV POST OPERATIVE SHIVERING; Start 01/18 at 20:00 Eye Lubricant (Akwa Oint) 1 applic Q6 BOTH EYES Last administered on 01/20/17 05:24; Admin Dose 1 APPLIC; Start 01/18/17 at 20:00 Eye Lubricant (Artificial Tears Oph) 2 drop Q6 BOTH EYES Last administered on 05:24; Admin Dose 2 DROP; Start 01/19/17 at 00:00 Diagnostic Test (Pha) (Accu-Chek) 1 ea Q1H XX Last administered on 01/20/17 05 :24; Admin Dose 1 EA; Start 01/18/17 at 20:00 Dextrose (D50w Syringe) 25 ml Q15M PRN IV Till BS 80 mg/dL or above x2; Start 01/18/17 at 20:00 Dextrose 50 ml 50 ml Q15M PRN IV Till BS 80 mg/dL or above x2; Start 01/18/17 at 20:00 Cefepime HCl 50 ml @ 100 mls/hr Q24H IVPB Last administered on 01/20/17 10:34 ; Admin Dose 100 MLS/HR; Start 01/19/17 at 11:00 Vecuronium [place]/Dextrose (Norcuron/D5W) 100 ml @ 3.72 mls/hr Q24H IV Last administered on 01/19/17 12:10; Admin Dose 3.72 MLS/HR; Start 01/19/17 at 12:10 Lorazepam (Ativan) 2 mg Q2H PRN IV SEIZURES Last administered on 01/20/17 06: 25; Admin Dose 2 MG; Start 01/19/17 at 18:00 Insulin Aspart (Adult SC Insulin - Mild Algorithm)... Q6 SC ; Start 01/20/17 at 00:00 Valproate Sodium 500 mg/Sodium Chloride 55 ml @ 55 mls/hr Q4H PRN IVPB SEIZURES ; Start 01/19/17 at 20:00 Dextrose/Sodium Chloride 1,000 ml @ 50 mls/hr Q20H IV Last administered on 08:34; Admin Dose 50 MLS/HR; Start 01/19/17 at 20:30 Levetiracetam 100 ml @ 400 mls/hr Q12 IVPB ; Start 01/20/17 at 21:00 Midazolam HCl (Versed) 50 ml @ 1 mls/hr TITRATE IV Last administered on 10:34; Admin Dose 1 MLS/HR; Start 01/20/17 at 10:30 Assessment/Plan Chief Complaint/Hosp Course Assessment /plan 1. Cardiopulmonary arrest likely primary cardiac event. History of aortic valve replacement unclear with a history of ischemic heart disease. Currently not on anticoagulation. -Echocardiogram noted. -Cardiology recommendations 2. Hypothermia protocol following cardiopulmonary arrest. -Continue sedation and paralysis -Insulin drip 3. Hypoxemic respiratory failure secondary to above -Continue mechanical ventilation -Bronchodilators -Increase minute ventilation if needed. 4. Likely aspiration pneumonia -Broad-spectrum antibiotics -Penicillin allergy to try cefepime 5. Coagulopathy -Questionable underlying cirrhosis incomplete data 6. Encephalopathy, possible anoxic brain injury following cardiac arrest. Seizures secondary to anoxic brain injury - continue hypothermia protocol -Anoxic brain seizures. Antiseizure medications, propofol and Versed may require Keppra -Neurology recommendations 7. End-stage renal failure on hemodialysis -Nephrology consultation -Hemodialysis as tolerated 8. DVT and GI prophylaxis Critical care time 40 minutes. discussed with patient's son and at bedside prognosis very poor Palliative care consult. Problems: AVIVA VILLEGAS MD, [facility] Jan 20, 2017 11:29
[2017-01-20] MEDS: VECURONIUM 100 MG in DEXTROSE 5% 100 ML IV SCH (12:10)
--- NOTE | 2017-01-20 13:14 | CONS ---
Date/Time of Note Date/Time of Note DATE: 01/20/17 TIME: 13:11 Assessment/Plan Assessment/Plan Chief Complaint/Hosp Course VF cardiac arrest: No STEMI by EKG. He did not have CAD as of 2008 but certainly this could have changed. Trops only mildly elevated to 0.27. EF preserved. Doubt CAD related. May have scar related VT/VF from prior cardiac surgeries. Will still need a cath if regains mentation. ?MMVT: first EKG is concerning for VT as different morphology. No recurrence. NSTEMI: mild trop elevation, type II in setting of arrest. EF preserved and no WMA Acute on chronic diastolic heart failure: mild Mechanical AVR 2007 and 2008: apparently not on coumadin due to bleeding. He is autoanticoagulated at this time. Echo shows acceptable gradients across valve but with possible mod-severe paravalvular leak. If mental status improves, may need a CARITO for better assessment. Cultures with possible GNR ESRD on HD Liver cirrhosis from presumed alcohol Thrombocytopenia Coagulopathy: INR >2 -hold off on ASA for now as suspicion for CAD is still low, thrombocytopenic and coagulopathic -wean off levophed to keep MAP >60 -will need CARITO, cardiac cath, ICD if mentation improves Problems: Consultation Date/Type/Reason Admit Date/Time Jan 18, 2017 at 09:01 Initial Consult Date 01/18/17 Type of Consultation: Cardiology Referring Provider: MAGALI FROST MD 24 HR Interval Summary Free Text/Dictation On low dose levophed. In sinus now. No meaningful neuro recovery yet Exam/Review of Systems Vital Signs Vitals Vital Signs Date Time Temp Pulse Resp B/P Pulse Ox O2 Delivery O2 Flow Rate FiO2 01/20/17 12:00 88 01/20/17 11:45 117/40 96 01/20/17 11:00 25 Mechanical Ventilator 01/20/17 08:56 100 01/20/17 08:00 100.2 Intake and Output 01/19/17 01/19/17 01/20/17 14:59 22:59 06:59 Intake Total 604.4 ml 751.98 ml 548.72 ml Output Total 0 ml 20 ml Balance 604.4 ml 751.98 ml 528.72 ml Exam Constitutional: No alert Head: atraumatic, normocephalic ENMT: intubated Neck: No jvd Respiratory: diminished breath sounds, No clear to auscultation Cardiovascular: diastolic murmur, edema (1+), regular rate and rhythm, No systolic murmur Gastrointestinal: soft, No distended Neurological: No nl mental status, No nl speech Results Result Diagram: 01/20/17 0430 01/20/17 0430 Results 24 hrs Laboratory Tests Test 01/19/17 15:03 01/19/17 17:48 01/19/17 18:21 01/19/17 19:58 Bedside Glucose 119 85 77 White Blood Count 22.2 H Red Blood Count 3.96 L Hemoglobin 12.4 L Hematocrit 38.2 L Mean Corpuscular Volume 96.5 Mean Corpuscular Hemoglobin 31.3 Mean Corpuscular Hemoglobin Concent 32.5 Red Cell Distribution Width 21.4 H Platelet Count 55 L Mean Platelet Volume Neutrophils % 93.4 H Lymphocytes % 2.1 L Monocytes % 3.6 Eosinophils % 0.0 Basophils % 0.2 Nucleated Red Blood Cells % 0.0 Neutrophils # 20.7 H Lymphocytes # 0.5 L Monocytes # 0.8 Eosinophils # 0.0 Basophils # 0.1 Nucleated Red Blood Cells # 0.0 Prothrombin Time 25.4 H Prothrombin Time Ratio 2.0 INR International Normalized Ratio 2.28 Activated Partial Thromboplast Time 39.1 H Fibrinogen 228.0 # Sodium Level 143 Potassium Level 4.8 Chloride Level 105 Carbon Dioxide Level 24 Anion Gap 19 H Blood Urea Nitrogen 43 H Creatinine 2.93 H Glucose Level 80 Calcium Level 7.8 L Phosphorus Level 2.3 L Magnesium Level 2.1 Creatine Kinase 42 Creatine Kinase Index 11.9 Creatinine Kinase MB (Mass) 5.01 H Troponin I 0.135 *H Test 01/20/17 00:02 01/20/17 00:42 01/20/17 04:30 01/20/17 05:21 Bedside Glucose 170 97 Creatine Kinase 44 43 Creatine Kinase Index 6.8 5.2 Creatinine Kinase MB (Mass) 3.00 H 2.24 Troponin I 0.211 *H 0.258 *H White Blood Count 19.7 H Red Blood Count 3.32 L Hemoglobin 10.6 L Hematocrit 31.7 L Mean Corpuscular Volume 95.5 Mean Corpuscular Hemoglobin 31.9 Mean Corpuscular Hemoglobin Concent 33.4 Red Cell Distribution Width 21.3 H Platelet Count 65 L Mean Platelet Volume Neutrophils % 90.9 H Lymphocytes % 3.2 L Monocytes % 4.9 Eosinophils % 0.1 Basophils % 0.2 Nucleated Red Blood Cells % 0.0 Neutrophils # 17.9 H Lymphocytes # 0.6 L Monocytes # 1.0 H Eosinophils # 0.0 Basophils # 0.0 Nucleated Red Blood Cells # 0.0 Sodium Level 140 Potassium Level 5.1 Chloride Level 104 Carbon Dioxide Level 25 Anion Gap 16 Blood Urea Nitrogen 48 H Creatinine 3.15 H Glucose Level 98 Calcium Level 7.9 L Phosphorus Level 2.0 L Magnesium Level 2.0 Total Bilirubin 1.7 H Direct Bilirubin 0.50 #H Indirect Bilirubin 1.2 H Aspartate Amino Transf (AST/SGOT) 37 Alanine Aminotransferase (ALT/SGPT) 28 Alkaline Phosphatase 165 H Total Protein 5.8 L Albumin 2.8 L Globulin 3.00 Albumin/Globulin Ratio 0.93 Test 01/20/17 12:04 Bedside Glucose 77 Medications Medications Current Medications Ondansetron HCl (Zofran Tab) 4 mg Q6H PRN PO NAUSEA AND/OR VOMITING; Start at 09:00 Acetaminophen (Tylenol Liquid) 650 mg Q6H PRN PO PAIN LEVEL 1-3 OR FEVER; Start 01/18/17 at 09:00 Acetaminophen/ Hydrocodone Bitart ([place] (5/325)) 1 tab Q6H PRN PO PAIN LEVEL 4 -6; Start 01/18/17 at 09:00 Miscellaneous Information 1 ea NOTE XX ; Start 01/18/17 at 19:00 Glucose (Glutose) 15 gm Q15M PRN PO DECREASED GLUCOSE; Start 01/18/17 at 19:00 Glucose (Glutose) 22.5 gm Q15M PRN PO DECREASED GLUCOSE; Start 01/18/17 at 19: 00 Dextrose (D50w Syringe) 25 ml Q15M PRN IV DECREASED GLUCOSE; Start 01/18/17 at 19:00 Dextrose (D50w Syringe) 50 ml Q15M PRN IV DECREASED GLUCOSE; Start 01/18/17 at 19:00 Glucagon (Glucagen) 1 mg Q15M PRN IM DECREASED GLUCOSE; Start 01/18/17 at 19:00 Glucose 15 gm 15 gm Q15M PRN BUCCAL DECREASED GLUCOSE; Start 01/18/17 at 19:00 Dopamine HCl/ Dextrose 250 ml @ 5.25 mls/hr TITRATE IV Last administered on 15:33; Admin Dose 10.5 MLS/HR; Start 01/18/17 at 19:00 Norepinephrine/ Dextrose (Levophed/D5W) 250 ml @ 0.46 mls/hr TITRATE IV Last administered on 01/19/17 20:37; Admin Dose 1.87 MLS/HR; Start 01/18/17 at 19:00 Famotidine 20 mg 20 mg DAILY IV Last administered on 01/20/17 09:00; Admin Dose 20 MG; Start 01/19/17 at 09:00 Levofloxacin/ Dextrose (Levaquin 750 Mg/ D5W 150 ml (Pmx)) 150 ml @ 100 mls/hr Q48H IVPB Last administered on 01/18/17 20:38; Admin Dose 100 MLS/HR; Start at 20:00 Acetaminophen (Tylenol Supp) 650 mg Q4H PRN [place] TEMP > 37C; Start 01/18/17 at 20 :00 Acetaminophen (Tylenol Liquid) 650 mg Q4H PRN PO TEMP > 37C; Start 01/18/17 at 20:00 Acetaminophen (Tylenol Supp) 500 mg Q6H [place] Last administered on 01/20/17 09:00 ; Admin Dose 500 MG; Start 01/19/17 at 20:00 Meperidine HCl (Demerol) 12.5 mg Q4H PRN IV POST OPERATIVE SHIVERING; Start at 20:00 Meperidine HCl (Demerol) 25 mg Q4H PRN IV POST OPERATIVE SHIVERING; Start 01/18 at 20:00 Eye Lubricant (Akwa Oint) 1 applic Q6 BOTH EYES Last administered on 01/20/17 12:03; Admin Dose 1 APPLIC; Start 01/18/17 at 20:00 Eye Lubricant (Artificial Tears Oph) 2 drop Q6 BOTH EYES Last administered on 12:03; Admin Dose 2 DROP; Start 01/19/17 at 00:00 Dextrose (D50w Syringe) 25 ml Q15M PRN IV Till BS 80 mg/dL or above x2; Start 01/18/17 at 20:00 Dextrose 50 ml 50 ml Q15M PRN IV Till BS 80 mg/dL or above x2; Start 01/18/17 at 20:00 Cefepime HCl 50 ml @ 100 mls/hr Q24H IVPB Last administered on 01/20/17 10:34 ; Admin Dose 100 MLS/HR; Start 01/19/17 at 11:00 Vecuronium [place]/Dextrose (Norcuron/D5W) 100 ml @ 3.72 mls/hr Q24H IV Last administered on 01/19/17 12:10; Admin Dose 3.72 MLS/HR; Start 01/19/17 at 12:10 Lorazepam (Ativan) 2 mg Q2H PRN IV SEIZURES Last administered on 01/20/17 06: 25; Admin Dose 2 MG; Start 01/19/17 at 18:00 Insulin Aspart (Adult SC Insulin - Mild Algorithm)... Q6 SC ; Start 01/20/17 at 00:00 Valproate Sodium 500 mg/Sodium Chloride 55 ml @ 55 mls/hr Q4H PRN IVPB SEIZURES ; Start 01/19/17 at 20:00 Dextrose/Sodium Chloride 1,000 ml @ 50 mls/hr Q20H IV Last administered on 08:34; Admin Dose 50 MLS/HR; Start 01/19/17 at 20:30 Levetiracetam 100 ml @ 400 mls/hr Q12 IVPB ; Start 01/20/17 at 21:00 Midazolam HCl (Versed) 50 ml @ 1 mls/hr TITRATE IV Last administered on 10:34; Admin Dose 1 MLS/HR; Start 01/20/17 at 10:30 SILVERIO MCMAHAN Jan 20, 2017 13:13
[2017-01-20] MEDS: LEVETIRACETAM 1000 MG (PMX) 100 ML IVPB SCH (20:43)
[2017-01-20] MEDS: LEVOFLOXACIN 750MG/D5W (PMX) 150 ML IVPB SCH (20:43)
--- NOTE | 2017-01-20 21:28 | CONS ---
Date/Time of Note Date/Time of Note DATE: 01/20/17 TIME: 21:18 Assessment/Plan Assessment/Plan Chief Complaint/Hosp Course Gross hematuria, the patient has a history of bladder tumor that has been resected in the past and was told recently that the tumor has reoccurred. For now from a urological standpoint we will just leave him alone pending this other medical problems to be resolved Patient is encephalopathic and the family was asking whether he is brain or not Problems: Consultation Date/Type/Reason Admit Date/Time Jan 18, 2017 at 09:01 Date of Consultation: Jan 20, 2017 Type of Consultation: Urology Reason for Consultation Gross hematuria Referring Provider: MAGALI FROST MD Hx of Present Illness 66-year-old male admitted to the hospital after having a cardiac arrest. He is now intubated and in the intensive care unit. He has an indwelling Garcia catheter and has a gross hematuria .His 2 daughters are at his bedside According to them patient does have a history of bladder tumor that was resected before however they were told recently that the tumor has reoccurred. Subjective hx not possible: pt non-verbal, pt critical Constitutional: no complaints Eyes: no complaints ENT: other (Patient is on respirator) Respiratory: other Cardiovascular: no complaints Gastrointestinal: no complaints Genitourinary: hematuria Musculoskeletal: no complaints Skin: bruising, no complaints Endocrine: no complaints Lymphatic: no complaints Psychological: no complaints Past Medical History Medical History: coronary artery disease, other (Cirrhosis, history of bladder tumor) Past Surgical History Past Surgical Hx: appendectomy, other (Mitral valve replacement) Social History Smoking Status: Unknown if ever smoked Exam/Review of Systems Vital Signs Vitals Vital Signs Date Time Temp Pulse Resp B/P Pulse Ox O2 Delivery O2 Flow Rate FiO2 01/20/17 20:00 72 01/20/17 19:21 21 100 100 01/20/17 18:30 110/40 01/20/17 18:00 Mechanical Ventilator 01/20/17 16:00 97.6 Intake and Output 01/19/17 01/19/17 01/20/17 15:00 23:00 07:00 Intake Total 597.3 ml 741.97 ml 492.63 ml Output Total 0 ml 20 ml Balance 597.3 ml 741.97 ml 472.63 ml Exam Constitutional: non-verbal, other (Patient is on a ventilator) ENMT: intubated (Patient on ventilator) Respiratory: other (Patient on a ventilator) Gastrointestinal: soft, surgical scars Genitourinary - Male: nl penis, nl scrotum, other (Patient has an indwelling Garcia catheter, hardly any urine coming out and it is bloody) Extremities: No palpable cord Results Result Diagram: 01/20/17 0430 01/20/17 0430 Results 24 hrs Laboratory Tests Test 01/20/17 00:02 01/20/17 00:42 01/20/17 04:30 01/20/17 05:21 Bedside Glucose 170 97 Creatine Kinase 44 43 Creatine Kinase Index 6.8 5.2 Creatinine Kinase MB (Mass) 3.00 H 2.24 Troponin I 0.211 *H 0.258 *H White Blood Count 19.7 H Red Blood Count 3.32 L Hemoglobin 10.6 L Hematocrit 31.7 L Mean Corpuscular Volume 95.5 Mean Corpuscular Hemoglobin 31.9 Mean Corpuscular Hemoglobin Concent 33.4 Red Cell Distribution Width 21.3 H Platelet Count 65 L Mean Platelet Volume Neutrophils % 90.9 H Lymphocytes % 3.2 L Monocytes % 4.9 Eosinophils % 0.1 Basophils % 0.2 Nucleated Red Blood Cells % 0.0 Neutrophils # 17.9 H Lymphocytes # 0.6 L Monocytes # 1.0 H Eosinophils # 0.0 Basophils # 0.0 Nucleated Red Blood Cells # 0.0 Sodium Level 140 Potassium Level 5.1 Chloride Level 104 Carbon Dioxide Level 25 Anion Gap 16 Blood Urea Nitrogen 48 H Creatinine 3.15 H Glucose Level 98 Calcium Level 7.9 L Phosphorus Level 2.0 L Magnesium Level 2.0 Total Bilirubin 1.7 H Direct Bilirubin 0.50 #H Indirect Bilirubin 1.2 H Aspartate Amino Transf (AST/SGOT) 37 Alanine Aminotransferase (ALT/SGPT) 28 Alkaline Phosphatase 165 H Total Protein 5.8 L Albumin 2.8 L Globulin 3.00 Albumin/Globulin Ratio 0.93 Test 01/20/17 12:04 01/20/17 17:55 Bedside Glucose 77 95 Medications Medications Current Medications Ondansetron HCl (Zofran Tab) 4 mg Q6H PRN PO NAUSEA AND/OR VOMITING; Start at 09:00 Acetaminophen (Tylenol Liquid) 650 mg Q6H PRN PO PAIN LEVEL 1-3 OR FEVER; Start 01/18/17 at 09:00 Acetaminophen/ Hydrocodone Bitart ([place] (5/325)) 1 tab Q6H PRN PO PAIN LEVEL 4 -6; Start 01/18/17 at 09:00 Miscellaneous Information 1 ea NOTE XX ; Start 01/18/17 at 19:00 Glucose (Glutose) 15 gm Q15M PRN PO DECREASED GLUCOSE; Start 01/18/17 at 19:00 Glucose (Glutose) 22.5 gm Q15M PRN PO DECREASED GLUCOSE; Start 01/18/17 at 19: 00 Dextrose (D50w Syringe) 25 ml Q15M PRN IV DECREASED GLUCOSE; Start 01/18/17 at 19:00 Dextrose (D50w Syringe) 50 ml Q15M PRN IV DECREASED GLUCOSE; Start 01/18/17 at 19:00 Glucagon (Glucagen) 1 mg Q15M PRN IM DECREASED GLUCOSE; Start 01/18/17 at 19:00 Glucose 15 gm 15 gm Q15M PRN BUCCAL DECREASED GLUCOSE; Start 01/18/17 at 19:00 Dopamine HCl/ Dextrose 250 ml @ 5.25 mls/hr TITRATE IV Last administered on 15:33; Admin Dose 10.5 MLS/HR; Start 01/18/17 at 19:00 Norepinephrine/ Dextrose (Levophed/D5W) 250 ml @ 0.46 mls/hr TITRATE IV Last administered on 01/19/17 20:37; Admin Dose 1.87 MLS/HR; Start 01/18/17 at 19:00 Famotidine 20 mg 20 mg DAILY IV Last administered on 01/20/17 09:00; Admin Dose 20 MG; Start 01/19/17 at 09:00 Levofloxacin/ Dextrose (Levaquin 750 Mg/ D5W 150 ml (Pmx)) 150 ml @ 100 mls/hr Q48H IVPB Last administered on 01/20/17 20:43; Admin Dose 100 MLS/HR; Start at 20:00 Acetaminophen (Tylenol Supp) 650 mg Q4H PRN [place] TEMP > 37C; Start 01/18/17 at 20 :00 Acetaminophen (Tylenol Liquid) 650 mg Q4H PRN PO TEMP > 37C; Start 01/18/17 at 20:00 Acetaminophen (Tylenol Supp) 500 mg Q6H [place] Last administered on 01/20/17 09:00 ; Admin Dose 500 MG; Start 01/19/17 at 20:00 Meperidine HCl (Demerol) 12.5 mg Q4H PRN IV POST OPERATIVE SHIVERING; Start at 20:00 Meperidine HCl (Demerol) 25 mg Q4H PRN IV POST OPERATIVE SHIVERING; Start 01/18 at 20:00 Eye Lubricant (Akwa Oint) 1 applic Q6 BOTH EYES Last administered on 01/20/17 18:43; Admin Dose 1 APPLIC; Start 01/18/17 at 20:00 Eye Lubricant (Artificial Tears Oph) 2 drop Q6 BOTH EYES Last administered on 18:43; Admin Dose 2 DROP; Start 01/19/17 at 00:00 Dextrose (D50w Syringe) 25 ml Q15M PRN IV Till BS 80 mg/dL or above x2; Start 01/18/17 at 20:00 Dextrose 50 ml 50 ml Q15M PRN IV Till BS 80 mg/dL or above x2; Start 01/18/17 at 20:00 Cefepime HCl 50 ml @ 100 mls/hr Q24H IVPB Last administered on 01/20/17 10:34 ; Admin Dose 100 MLS/HR; Start 01/19/17 at 11:00 Vecuronium [place]/Dextrose (Norcuron/D5W) 100 ml @ 3.72 mls/hr Q24H IV Last administered on 01/19/17 12:10; Admin Dose 3.72 MLS/HR; Start 01/19/17 at 12:10 Lorazepam (Ativan) 2 mg Q2H PRN IV SEIZURES Last administered on 01/20/17 06: 25; Admin Dose 2 MG; Start 01/19/17 at 18:00 Insulin Aspart (Adult SC Insulin - Mild Algorithm)... Q6 SC ; Start 01/20/17 at 00:00 Valproate Sodium 500 mg/Sodium Chloride 55 ml @ 55 mls/hr Q4H PRN IVPB SEIZURES ; Start 01/19/17 at 20:00 Dextrose/Sodium Chloride 1,000 ml @ 50 mls/hr Q20H IV Last administered on 08:34; Admin Dose 50 MLS/HR; Start 01/19/17 at 20:30 Levetiracetam 100 ml @ 400 mls/hr Q12 IVPB Last administered on 01/20/17 20: 43; Admin Dose 400 MLS/HR; Start 01/20/17 at 21:00 Midazolam HCl (Versed) 50 ml @ 1 mls/hr TITRATE IV Last administered on 20:44; Admin Dose 2 MLS/HR; Start 01/20/17 at 10:30 Miscellaneous Information (*Rx Drug Level Order Reminder*) RANDOM VANCOMYCIN LEVEL IN AM ONCE ONCE XX ; Start 01/21/17 at 05:00; Stop 01/21/17 at 05:01 IVIS MARTINEZ MD Jan 20, 2017 21:28
[2017-01-21] VITALS (90 sets, daily range): BP systolic 102–137; BP diastolic 36–59; PULSE 58–95; RESP 20
[2017-01-21] MEDS: ACETAMINOPHEN 650 MG SUPP PR SCH (01:03)
[2017-01-21] MEDS: ARTIFICIAL TEARS 15 ML OPH BOTH EYES SCH ×3 (05:51→17:34)
[2017-01-21] MEDS: OCULAR LUBRICANT 3.5 GM OPH OINT BOTH EYES SCH ×3 (05:51→17:34)
[2017-01-21] MEDS: Insulin NOVOLOG SS MILD Algorithm (NPO/TPN/ENTERAL FEEDS) SC SCH ×4 (05:54→17:41)
[2017-01-21] MEDS: DEXTROSE 5%-0.45% NACL 1,000 ML IV SCH (05:57)
[2017-01-21] MEDS: DEXTROSE 50% 50 ML SYRINGE IV PRN ×2 (05:57→13:10)
[2017-01-21 06:23] LABS: ADD SCAN DIFF NO
[2017-01-21 06:26] LABS: ABNORMAL IP MESSAGE 1; BASOPHIL # 0.1 10^3/ul (0.0-0.1); BASOPHILS % 0.3 % (0.0-2.0); EOSINOPHILS % 0.2 % (0.0-7.0); HEMATOCRIT 31.4 % (42.0-52.0); HEMOGLOBIN 9.9 g/dl (14.0-18.0); LYMPHOCYTES # 0.7 10^3/ul (0.8-2.9); LYMPHOCYTES % 4.1 % (15.0-51.0); MEAN CORPUSCULAR HEMOGLOBIN 30.5 pg (29.0-33.0); MEAN CORPUSCULAR HGB CONC 31.5 g/dl (32.0-37.0); MEAN CORPUSCULAR VOLUME 96.6 fl (82.0-101.0); MONOCYTE # 0.9 10^3/ul (0.3-0.9); MONOCYTES % 4.8 % (0.0-11.0); NEUTROPHIL # 15.9 10^3/ul (1.6-7.5); NEUTROPHILS % 89.9 % (39.0-77.0); RED BLOOD COUNT 3.25 10^6/ul (4.70-6.10); RED CELL DISTRIBUTION WIDTH 22.2 % (11.5-14.5); WHITE BLOOD COUNT 17.7 10^3/ul (4.8-10.8)
[2017-01-21 06:44] LABS: PLATELET COUNT 66 10^3/UL (140-415)
[2017-01-21 06:52] LABS: CALCIUM 8.2 mg/dl (8.4-10.2); CREATININE 2.78 mg/dl (0.61-1.24); MAGNESIUM 2.1 mg/dl (1.7-2.5); PHOSPHORUS 3.5 mg/dl (2.5-4.9); POTASSIUM 4.3 mmol/L (3.5-5.1)
--- NOTE | 2017-01-21 07:42 | PN ---
Date/Time of Note Date/Time of Note DATE: 01/21/17 TIME: 07:40 Assessment/Plan Lines/Catheters IV Catheter Type (from Nrsg): PERMACATH Urinary Cath still in place: Yes Assessment/Plan Chief Complaint/Hosp Course 1. End-stage renal disease -Plan for dialysis tomorrow 2. Anemia monitor H&H levels 3. Mineral bone disorder monitor calcium phosphorus level 4. Cardiopulmonary arrest status post hypothermia protocol 5. Shock etiology is cardiogenic possible septic. -Continue current antibiotic regimen -Off pressors -Follow-up with infectious disease 6. Ventilator dependent respiratory failure events has been reviewed ABGs reviewed -Follow-up with pulmonary 7. Liver cirrhosis continue supportive care 8. Mechanical AVR 2007 2008 -Monitor INR 9. Hypernatremia Monitor Problems: Subjective 24 Hr Interval Summary Free Text/Dictation Patient remains critically ill Had dialysis yesterday No other events noted Exam/Review of Systems Vital Signs Vitals Vital Signs Date Time Temp Pulse Resp B/P Pulse Ox O2 Delivery O2 Flow Rate FiO2 01/21/17 06:15 80 128/45 100 01/21/17 06:00 Mechanical Ventilator 01/21/17 05:23 20 100 01/21/17 04:00 99.8 Intake and Output 01/20/17 01/20/17 01/21/17 15:00 23:00 07:00 Intake Total 398.97 ml 1149.44 ml 408.1 ml Output Total 2650 ml 0 ml Balance 398.97 ml -1500.56 ml 408.1 ml Exam HEENT: Head is normocephalic. NECK: Supple. HEART: Irregular LUNGS: Show diminished breath sounds at base. ABDOMEN: Soft, nontender to palpation without rebound or guarding. EXTREMITIES: Negative for clubbing, cyanosis. Positive edema, DERMATOLOGIC: No rashes. MUSCULOSKELETAL: No joint effusions, NEUROLOGIC: No change in exam. Results Result Diagram: 01/21/17 0450 01/21/17 0450 Results 24 hrs Laboratory Tests Test 01/20/17 12:04 01/20/17 17:55 01/21/17 00:01 01/21/17 04:50 Bedside Glucose 77 95 74 White Blood Count 17.7 H Red Blood Count 3.25 L Hemoglobin 9.9 L Hematocrit 31.4 L Mean Corpuscular Volume 96.6 Mean Corpuscular Hemoglobin 30.5 Mean Corpuscular Hemoglobin Concent 31.5 L Red Cell Distribution Width 22.2 H Platelet Count 66 L Mean Platelet Volume Neutrophils % 89.9 H Lymphocytes % 4.1 L Monocytes % 4.8 Eosinophils % 0.2 Basophils % 0.3 Nucleated Red Blood Cells % 0.0 Neutrophils # 15.9 H Lymphocytes # 0.7 L Monocytes # 0.9 Eosinophils # 0.0 Basophils # 0.1 Nucleated Red Blood Cells # 0.0 Sodium Level 146 H Potassium Level 4.3 Chloride Level 106 Carbon Dioxide Level 26 Anion Gap 18 H Blood Urea Nitrogen 44 H Creatinine 2.78 H Glucose Level 51 #L Calcium Level 8.2 L Phosphorus Level 3.5 Magnesium Level 2.1 Test 01/21/17 05:53 01/21/17 06:00 01/21/17 06:21 Bedside Glucose 60 L 125 Random Vancomycin Level 11.4 Medications Medications Current Medications Ondansetron HCl (Zofran Tab) 4 mg Q6H PRN PO NAUSEA AND/OR VOMITING; Start at 09:00 Acetaminophen (Tylenol Liquid) 650 mg Q6H PRN PO PAIN LEVEL 1-3 OR FEVER; Start 01/18/17 at 09:00 Acetaminophen/ Hydrocodone Bitart ([place] (5/325)) 1 tab Q6H PRN PO PAIN LEVEL 4 -6; Start 01/18/17 at 09:00 Miscellaneous Information 1 ea NOTE XX ; Start 01/18/17 at 19:00 Glucose (Glutose) 15 gm Q15M PRN PO DECREASED GLUCOSE; Start 01/18/17 at 19:00 Glucose (Glutose) 22.5 gm Q15M PRN PO DECREASED GLUCOSE; Start 01/18/17 at 19: 00 Dextrose (D50w Syringe) 25 ml Q15M PRN IV DECREASED GLUCOSE Last administered on 01/21/17t 05:57; Admin Dose 25 ML; Start 01/18/17 at 19:00 Dextrose (D50w Syringe) 50 ml Q15M PRN IV DECREASED GLUCOSE; Start 01/18/17 at 19:00 Glucagon (Glucagen) 1 mg Q15M PRN IM DECREASED GLUCOSE; Start 01/18/17 at 19:00 Glucose 15 gm 15 gm Q15M PRN BUCCAL DECREASED GLUCOSE; Start 01/18/17 at 19:00 Dopamine HCl/ Dextrose 250 ml @ 5.25 mls/hr TITRATE IV Last administered on 15:33; Admin Dose 10.5 MLS/HR; Start 01/18/17 at 19:00 Norepinephrine/ Dextrose (Levophed/D5W) 250 ml @ 0.46 mls/hr TITRATE IV Last administered on 01/19/17 20:37; Admin Dose 1.87 MLS/HR; Start 01/18/17 at 19:00 Famotidine 20 mg 20 mg DAILY IV Last administered on 01/20/17 09:00; Admin Dose 20 MG; Start 01/19/17 at 09:00 Levofloxacin/ Dextrose (Levaquin 750 Mg/ D5W 150 ml (Pmx)) 150 ml @ 100 mls/hr Q48H IVPB Last administered on 01/20/17 20:43; Admin Dose 100 MLS/HR; Start at 20:00 Acetaminophen (Tylenol Supp) 650 mg Q4H PRN [place] TEMP > 37C; Start 01/18/17 at 20 :00 Acetaminophen (Tylenol Liquid) 650 mg Q4H PRN PO TEMP > 37C; Start 01/18/17 at 20:00 Acetaminophen (Tylenol Supp) 500 mg Q6H [place] Last administered on 01/20/17 09:00 ; Admin Dose 500 MG; Start 01/19/17 at 20:00 Meperidine HCl (Demerol) 12.5 mg Q4H PRN IV POST OPERATIVE SHIVERING; Start at 20:00 Meperidine HCl (Demerol) 25 mg Q4H PRN IV POST OPERATIVE SHIVERING; Start 01/18 at 20:00 Eye Lubricant (Akwa Oint) 1 applic Q6 BOTH EYES Last administered on 01/21/17 05:51; Admin Dose 1 APPLIC; Start 01/18/17 at 20:00 Eye Lubricant (Artificial Tears Oph) 2 drop Q6 BOTH EYES Last administered on 05:51; Admin Dose 2 DROP; Start 01/19/17 at 00:00 Dextrose (D50w Syringe) 25 ml Q15M PRN IV Till BS 80 mg/dL or above x2; Start 01/18/17 at 20:00 Dextrose 50 ml 50 ml Q15M PRN IV Till BS 80 mg/dL or above x2; Start 01/18/17 at 20:00 Cefepime HCl 50 ml @ 100 mls/hr Q24H IVPB Last administered on 01/20/17 10:34 ; Admin Dose 100 MLS/HR; Start 01/19/17 at 11:00 Vecuronium [place]/Dextrose (Norcuron/D5W) 100 ml @ 3.72 mls/hr Q24H IV Last administered on 01/19/17 12:10; Admin Dose 3.72 MLS/HR; Start 01/19/17 at 12:10 Lorazepam (Ativan) 2 mg Q2H PRN IV SEIZURES Last administered on 01/20/17 06: 25; Admin Dose 2 MG; Start 01/19/17 at 18:00 Insulin Aspart (Adult SC Insulin - Mild Algorithm)... Q6 SC ; Start 01/20/17 at 00:00 Valproate Sodium 500 mg/Sodium Chloride 55 ml @ 55 mls/hr Q4H PRN IVPB SEIZURES ; Start 01/19/17 at 20:00 Dextrose/Sodium Chloride 1,000 ml @ 50 mls/hr Q20H IV Last administered on 05:57; Admin Dose 50 MLS/HR; Start 01/19/17 at 20:30 Levetiracetam 100 ml @ 400 mls/hr Q12 IVPB Last administered on 01/20/17 20: 43; Admin Dose 400 MLS/HR; Start 01/20/17 at 21:00 Midazolam HCl (Versed) 50 ml @ 1 mls/hr TITRATE IV Last administered on 20:44; Admin Dose 2 MLS/HR; Start 01/20/17 at 10:30 BRENDA HANKINS DO Jan 21, 2017 07:41
[2017-01-21] MEDS: LEVETIRACETAM 1000 MG (PMX) 100 ML IVPB SCH ×2 (08:53→21:54)
[2017-01-21] MEDS: PROPOFOL 100 ML IV SCH ×2 (08:56→09:38)
[2017-01-21] MEDS: FAMOTIDINE 20 MG INJ IV SCH (08:56)
--- NOTE | 2017-01-21 09:48 | PN ---
Date/Time of Note Date/Time of Note DATE: 01/21/17 TIME: 09:44 Assessment/Plan VTE Prophylaxis VTE Prophylaxis Intervention: SCD's Lines/Catheters IV [facility] PERMACATH Urinary Cath still in place: Yes Reason Cath still needed: urinary retention Assessment/Plan Chief Complaint/Hosp Course Assessment/Plan: 66 yo M with pmhx cirrhosis, ESRD on HD, h/o AVR previously on Coumadin admitted following VFib arrest. #VFib arrest with ROSC: suspect 2/2 underlying heart disease/CAD with scar tissue into cardiac electrical system; no STEMI on EKG, hypothermia protocol complete. rewarming has also completed -cardiology on consult - f/u rec's, monitor for now -trending troponin per cardiology rec -pulm following -Follow-up EEG results, f/u Neuro rec's -Continue anti-sz meds. #ESRD on HD: nephrology cs - f/u their rec's regarding HD #cirrhosis: judicious fluids - monitor plt levels as well (low) #h/o AVR previously on Coumadin -cardiology following - monitor #?aspiration pna: empiric abx #hematuria - per family, possible Hx of bladder ca in the past. Appreciate urology consult, monitor for now DVT prophx: SQH and SCDs Follow-up recommendations from palliative consult team as well. Critical care time: 40 minutes Problems: Subjective 24 Hr Interval Summary Free Text/Dictation Patient off of pressor support now, still intubated. Had dialysis yesterday. Exam/Review of Systems Vital Signs Vitals Vital Signs Date Time Temp Pulse Resp B/P Pulse Ox O2 Delivery O2 Flow Rate FiO2 01/21/17 08:00 75 01/21/17 06:15 128/45 100 01/21/17 06:00 Mechanical Ventilator 01/21/17 05:23 20 100 01/21/17 04:00 99.8 Intake and Output 01/20/17 01/20/17 01/21/17 15:00 23:00 07:00 Intake Total 398.97 ml 1149.44 ml 408.1 ml Output Total 2650 ml 0 ml Balance 398.97 ml -1500.56 ml 408.1 ml Exam intubated and sedated lungs clear no mrg nL BS, NT, ND, soft HD catheter c/d/i no le edema Results Result Diagram: 01/21/17 0450 01/21/17 0450 Results 24 hrs Laboratory Tests Test 01/20/17 12:04 01/20/17 17:55 01/21/17 00:01 01/21/17 04:50 Bedside Glucose 77 95 74 White Blood Count 17.7 H Red Blood Count 3.25 L Hemoglobin 9.9 L Hematocrit 31.4 L Mean Corpuscular Volume 96.6 Mean Corpuscular Hemoglobin 30.5 Mean Corpuscular Hemoglobin Concent 31.5 L Red Cell Distribution Width 22.2 H Platelet Count 66 L Mean Platelet Volume Neutrophils % 89.9 H Lymphocytes % 4.1 L Monocytes % 4.8 Eosinophils % 0.2 Basophils % 0.3 Nucleated Red Blood Cells % 0.0 Neutrophils # 15.9 H Lymphocytes # 0.7 L Monocytes # 0.9 Eosinophils # 0.0 Basophils # 0.1 Nucleated Red Blood Cells # 0.0 Sodium Level 146 H Potassium Level 4.3 Chloride Level 106 Carbon Dioxide Level 26 Anion Gap 18 H Blood Urea Nitrogen 44 H Creatinine 2.78 H Glucose Level 51 #L Calcium Level 8.2 L Phosphorus Level 3.5 Magnesium Level 2.1 Test 01/21/17 05:53 01/21/17 06:00 01/21/17 06:21 Bedside Glucose 60 L 125 Random Vancomycin Level 11.4 Medications Medications Current Medications Ondansetron HCl (Zofran Tab) 4 mg Q6H PRN PO NAUSEA AND/OR VOMITING; Start at 09:00 Acetaminophen (Tylenol Liquid) 650 mg Q6H PRN PO PAIN LEVEL 1-3 OR FEVER; Start 01/18/17 at 09:00 Acetaminophen/ Hydrocodone Bitart ([place] (5/325)) 1 tab Q6H PRN PO PAIN LEVEL 4 -6; Start 01/18/17 at 09:00 Miscellaneous Information 1 ea NOTE XX ; Start 01/18/17 at 19:00 Glucose (Glutose) 15 gm Q15M PRN PO DECREASED GLUCOSE; Start 01/18/17 at 19:00 Glucose (Glutose) 22.5 gm Q15M PRN PO DECREASED GLUCOSE; Start 01/18/17 at 19: 00 Dextrose (D50w Syringe) 25 ml Q15M PRN IV DECREASED GLUCOSE Last administered on 01/21/17t 05:57; Admin Dose 25 ML; Start 01/18/17 at 19:00 Dextrose (D50w Syringe) 50 ml Q15M PRN IV DECREASED GLUCOSE; Start 01/18/17 at 19:00 Glucagon (Glucagen) 1 mg Q15M PRN IM DECREASED GLUCOSE; Start 01/18/17 at 19:00 Glucose 15 gm 15 gm Q15M PRN BUCCAL DECREASED GLUCOSE; Start 01/18/17 at 19:00 Dopamine HCl/ Dextrose 250 ml @ 5.25 mls/hr TITRATE IV Last administered on 15:33; Admin Dose 10.5 MLS/HR; Start 01/18/17 at 19:00 Norepinephrine/ Dextrose (Levophed/D5W) 250 ml @ 0.46 mls/hr TITRATE IV Last administered on 01/19/17 20:37; Admin Dose 1.87 MLS/HR; Start 01/18/17 at 19:00 Famotidine (Pepcid Iv) 20 mg DAILY IV Last administered on 01/21/17 08:56; Admin Dose 20 MG; Start 01/19/17 at 09:00 Acetaminophen (Tylenol Supp) 650 mg Q4H PRN [place] TEMP > 37C; Start 01/18/17 at 20 :00 Acetaminophen (Tylenol Liquid) 650 mg Q4H PRN PO TEMP > 37C; Start 01/18/17 at 20:00 Meperidine HCl (Demerol) 12.5 mg Q4H PRN IV POST OPERATIVE SHIVERING; Start at 20:00 Meperidine HCl (Demerol) 25 mg Q4H PRN IV POST OPERATIVE SHIVERING; Start 01/18 at 20:00 Eye Lubricant (Akwa Oint) 1 applic Q6 BOTH EYES Last administered on 01/21/17 05:51; Admin Dose 1 APPLIC; Start 01/18/17 at 20:00 Eye Lubricant 2 drop 2 drop Q6 BOTH EYES Last administered on 01/21/17 05:51; Admin Dose 2 DROP; Start 01/19/17 at 00:00 Cefepime HCl 50 ml @ 100 mls/hr Q24H IVPB Last administered on 01/20/17 10:34 ; Admin Dose 100 MLS/HR; Start 01/19/17 at 11:00 Vecuronium [place]/Dextrose (Norcuron/D5W) 100 ml @ 3.72 mls/hr Q24H IV Last administered on 01/19/17 12:10; Admin Dose 3.72 MLS/HR; Start 01/19/17 at 12:10 Lorazepam (Ativan) 2 mg Q2H PRN IV SEIZURES Last administered on 01/20/17 06: 25; Admin Dose 2 MG; Start 01/19/17 at 18:00 Insulin Aspart (Adult SC Insulin - Mild Algorithm)... Q6 SC ; Start 01/20/17 at 00:00 Valproate Sodium 500 mg/Sodium Chloride 55 ml @ 55 mls/hr Q4H PRN IVPB SEIZURES ; Start 01/19/17 at 20:00 Dextrose/Sodium Chloride 1,000 ml @ 50 mls/hr Q20H IV Last administered on 05:57; Admin Dose 50 MLS/HR; Start 01/19/17 at 20:30 Levetiracetam 100 ml @ 400 mls/hr Q12 IVPB Last administered on 01/21/17 08: 53; Admin Dose 400 MLS/HR; Start 01/20/17 at 21:00 Midazolam HCl 50 ml @ 1 mls/hr TITRATE IV Last administered on 01/20/17 20:44 ; Admin Dose 2 MLS/HR; Start 01/20/17 at 10:30 Levofloxacin/ Dextrose 100 ml @ 100 mls/hr Q48H IVPB ; Start 01/22/17 at 20:00 Vancomycin HCl (Vancocin) 250 ml @ 125 mls/hr 10 IVPB ; Start 01/21/17 at 10:00 ; Stop 01/21/17 at 11:59 OSMAN SAMUEL Jan 21, 2017 09:47
[2017-01-21] MEDS ORDERED: VANCOMYCIN 1 GM in NS 250 ML IVPB SCH (10:00)
--- NOTE | 2017-01-21 10:39 | CONS ---
Date/Time of Note Date/Time of Note DATE: 01/21/17 TIME: 10:36 Consult Date/Type/Reason Admit Date/Time Jan 18, 2017 at 09:01 Initial Consult Date 01/18/17 Type of Consultation: Pulmonary Ordering Provider: MAGALI FROST MD Subjective Patient remains unresponsive on mechanical ventilation Continue sedation for seizure precautions. Currently no evidence of seizure activity clinically. Although this does not exclude subclinical seizures. Objective Vital Signs Date Time Temp Pulse Resp B/P Pulse Ox O2 Delivery O2 Flow Rate FiO2 01/21/17 08:00 75 01/21/17 06:15 128/45 100 01/21/17 06:00 Mechanical Ventilator 01/21/17 05:23 20 100 01/21/17 04:00 99.8 Intake and Output 01/20/17 01/20/17 01/21/17 14:59 22:59 06:59 Intake Total 398.97 ml 1091.14 ml 466.4 ml Output Total 2650 ml 0 ml Balance 398.97 ml -1558.86 ml 466.4 ml Exam GENERAL: Chronically ill-appearing on immediate gentleman intubated on mechanical ventilation currently propofol and Versed VITAL SIGNS: per chart NECK: Supple. No JVD or lymphadenopathy. CARDIAC EXAM: S1, S2. No added sounds or murmurs. CHEST: clear bilaterally, No added sounds, rales or wheezes ABDOMEN: Soft, nontender. No guarding or rebound. EXTREMITIES: No cyanosis, clubbing or edema. NEUROLOGIC: unable to assess Results/Medications Result Diagram: 01/21/17 0450 01/21/17 0450 Results 24 hrs Laboratory Tests Test 01/20/17 12:04 01/20/17 17:55 01/21/17 00:01 01/21/17 04:50 Bedside Glucose 77 95 74 White Blood Count 17.7 H Red Blood Count 3.25 L Hemoglobin 9.9 L Hematocrit 31.4 L Mean Corpuscular Volume 96.6 Mean Corpuscular Hemoglobin 30.5 Mean Corpuscular Hemoglobin Concent 31.5 L Red Cell Distribution Width 22.2 H Platelet Count 66 L Mean Platelet Volume Neutrophils % 89.9 H Lymphocytes % 4.1 L Monocytes % 4.8 Eosinophils % 0.2 Basophils % 0.3 Nucleated Red Blood Cells % 0.0 Neutrophils # 15.9 H Lymphocytes # 0.7 L Monocytes # 0.9 Eosinophils # 0.0 Basophils # 0.1 Nucleated Red Blood Cells # 0.0 Sodium Level 146 H Potassium Level 4.3 Chloride Level 106 Carbon Dioxide Level 26 Anion Gap 18 H Blood Urea Nitrogen 44 H Creatinine 2.78 H Glucose Level 51 #L Calcium Level 8.2 L Phosphorus Level 3.5 Magnesium Level 2.1 Test 01/21/17 05:53 01/21/17 06:00 01/21/17 06:21 Bedside Glucose 60 L 125 Random Vancomycin Level 11.4 Medications Current Medications Ondansetron HCl (Zofran Tab) 4 mg Q6H PRN PO NAUSEA AND/OR VOMITING; Start at 09:00 Acetaminophen (Tylenol Liquid) 650 mg Q6H PRN PO PAIN LEVEL 1-3 OR FEVER; Start 01/18/17 at 09:00 Acetaminophen/ Hydrocodone Bitart ([place] (5/325)) 1 tab Q6H PRN PO PAIN LEVEL 4 -6; Start 01/18/17 at 09:00 Miscellaneous Information 1 ea NOTE XX ; Start 01/18/17 at 19:00 Glucose (Glutose) 15 gm Q15M PRN PO DECREASED GLUCOSE; Start 01/18/17 at 19:00 Glucose (Glutose) 22.5 gm Q15M PRN PO DECREASED GLUCOSE; Start 01/18/17 at 19: 00 Dextrose (D50w Syringe) 25 ml Q15M PRN IV DECREASED GLUCOSE Last administered on 01/21/17 05:57; Admin Dose 25 ML; Start 01/18/17 at 19:00 Dextrose (D50w Syringe) 50 ml Q15M PRN IV DECREASED GLUCOSE; Start 01/18/17 at 19:00 Glucagon (Glucagen) 1 mg Q15M PRN IM DECREASED GLUCOSE; Start 01/18/17 at 19:00 Glucose 15 gm 15 gm Q15M PRN BUCCAL DECREASED GLUCOSE; Start 01/18/17 at 19:00 Dopamine HCl/ Dextrose 250 ml @ 5.25 mls/hr TITRATE IV Last administered on 15:33; Admin Dose 10.5 MLS/HR; Start 01/18/17 at 19:00 Norepinephrine/ Dextrose (Levophed/D5W) 250 ml @ 0.46 mls/hr TITRATE IV Last administered on 7/16/17at 20:37; Admin Dose 1.87 MLS/HR; Start 01/18/17 at 19:00 Famotidine (Pepcid Iv) 20 mg DAILY IV Last administered on 01/21/17 08:56; Admin Dose 20 MG; Start 01/19/17 at 09:00 Acetaminophen (Tylenol Supp) 650 mg Q4H PRN [place] TEMP > 37C; Start 01/18/17 at 20 :00 Acetaminophen (Tylenol Liquid) 650 mg Q4H PRN PO TEMP > 37C; Start 01/18/17 at 20:00 Meperidine HCl (Demerol) 12.5 mg Q4H PRN IV POST OPERATIVE SHIVERING; Start at 20:00 Meperidine HCl (Demerol) 25 mg Q4H PRN IV POST OPERATIVE SHIVERING; Start 01/18 at 20:00 Eye Lubricant (Akwa Oint) 1 applic Q6 BOTH EYES Last administered on 01/21/17 05:51; Admin Dose 1 APPLIC; Start 01/18/17 at 20:00 Eye Lubricant 2 drop 2 drop Q6 BOTH EYES Last administered on 01/21/17 05:51; Admin Dose 2 DROP; Start 01/19/17 at 00:00 Cefepime HCl 50 ml @ 100 mls/hr Q24H IVPB Last administered on 01/20/17 10:34 ; Admin Dose 100 MLS/HR; Start 01/19/17 at 11:00 Vecuronium [place]/Dextrose (Norcuron/D5W) 100 ml @ 3.72 mls/hr Q24H IV Last administered on 01/19/17 12:10; Admin Dose 3.72 MLS/HR; Start 01/19/17 at 12:10 Lorazepam (Ativan) 2 mg Q2H PRN IV SEIZURES Last administered on 01/20/17 06: 25; Admin Dose 2 MG; Start 01/19/17 at 18:00 Insulin Aspart (Adult SC Insulin - Mild Algorithm)... Q6 SC ; Start 01/20/17 at 00:00 Valproate Sodium 500 mg/Sodium Chloride 55 ml @ 55 mls/hr Q4H PRN IVPB SEIZURES ; Start 01/19/17 at 20:00 Dextrose/Sodium Chloride 1,000 ml @ 50 mls/hr Q20H IV Last administered on 05:57; Admin Dose 50 MLS/HR; Start 01/19/17 at 20:30 Levetiracetam 100 ml @ 400 mls/hr Q12 IVPB Last administered on 01/21/17 08: 53; Admin Dose 400 MLS/HR; Start 01/20/17 at 21:00 Midazolam HCl 50 ml @ 1 mls/hr TITRATE IV Last administered on 01/20/17 20:44 ; Admin Dose 2 MLS/HR; Start 01/20/17 at 10:30 Levofloxacin/ Dextrose 100 ml @ 100 mls/hr Q48H IVPB ; Start 01/22/17 at 20:00 Vancomycin HCl (Vancocin) 250 ml @ 125 mls/hr 10 IVPB Last administered on 09:50; Admin Dose 125 MLS/HR; Start 01/21/17 at 10:00; Stop 01/21/17 at 11:59 Assessment/Plan Chief Complaint/Hosp Course Assessment /plan 1. Cardiopulmonary arrest likely primary cardiac event. History of aortic valve replacement unclear with a history of ischemic heart disease. Currently not on anticoagulation. -Echocardiogram noted. -Cardiology recommendations 2. Hypothermia protocol following cardiopulmonary arrest. -Continue sedation for seizure management. -Insulin drip 3. Hypoxemic respiratory failure secondary to above -Continue mechanical ventilation -Bronchodilators -Increase minute ventilation if needed. 4. Likely aspiration pneumonia -Broad-spectrum antibiotics -Penicillin allergy to try cefepime 5. Coagulopathy -Questionable underlying cirrhosis incomplete data 6. Encephalopathy, possible anoxic brain injury following cardiac arrest. Seizures secondary to anoxic brain injury -Status post hypothermia protocol -Anoxic brain seizures. Antiseizure medications, propofol and Versed may require Keppra -Neurology recommendations 7. End-stage renal failure on hemodialysis -Nephrology consultation -Hemodialysis as tolerated 8. DVT and GI prophylaxis Critical care time 40 minutes. Discussed with patient's family at bedside. They understand he has very poor prognosis and life support including mechanical ventilation via tracheostomy and feeding tube are not consistent with his wishes. Given his current condition family will pursue switching to comfort care. Problems: AVIVA VILLEGAS MD, [facility] Jan 21, 2017 10:38
--- NOTE | 2017-01-21 11:08 | CONS ---
Date/Time of Note Date/Time of Note DATE: 01/21/17 TIME: 11:05 Assessment/Plan Assessment/Plan Chief Complaint/Hosp Course VF cardiac arrest: No STEMI by EKG. He did not have CAD as of 2008 but certainly this could have changed. Trops only mildly elevated to 0.27. EF preserved. Doubt CAD related. May have scar related VT/VF from prior cardiac surgeries. Will still need a cath if regains mentation. ?MMVT: first EKG is concerning for VT as different morphology. No recurrence. NSTEMI: mild trop elevation, type II in setting of arrest. EF preserved and no WMA Acute on chronic diastolic heart failure: mild Mechanical AVR 2007 and 2008: apparently not on coumadin due to bleeding. He is autoanticoagulated at this time. Echo shows acceptable gradients across valve but with possible mod-severe paravalvular leak. If mental status improves, may need a CARITO for better assessment. Cultures with GNR ESRD on HD Liver cirrhosis from presumed alcohol Thrombocytopenia Coagulopathy: INR >2 -hold off on ASA for now as suspicion for CAD is still low, thrombocytopenic and coagulopathic -will need CARITO, cardiac cath, ICD if mentation improves -would stop sedation Problems: Consultation Date/Type/Reason Admit Date/Time Jan 18, 2017 at 09:01 Initial Consult Date 01/18/17 Type of Consultation: Cardiology Referring Provider: MAGALI FROST MD 24 HR Interval Summary Free Text/Dictation Unresponsive but still on sedation. Off levophed. No arrhythmias. Exam/Review of Systems Vital Signs Vitals Vital Signs Date Time Temp Pulse Resp B/P Pulse Ox O2 Delivery O2 Flow Rate FiO2 01/21/17 08:00 75 01/21/17 06:15 128/45 100 01/21/17 06:00 Mechanical Ventilator 01/21/17 05:23 20 100 01/21/17 04:00 99.8 Intake and Output 01/20/17 01/20/17 01/21/17 15:00 23:00 07:00 Intake Total 398.97 ml 1149.44 ml 408.1 ml Output Total 2650 ml 0 ml Balance 398.97 ml -1500.56 ml 408.1 ml Exam Constitutional: No alert Head: atraumatic, normocephalic ENMT: intubated Respiratory: diminished breath sounds, No crackles/rales Cardiovascular: diastolic murmur, regular rate and rhythm Gastrointestinal: soft, No distended Neurological: No nl mental status, No nl speech Results Result Diagram: 01/21/17 0450 01/21/17 0450 Results 24 hrs Laboratory Tests Test 01/20/17 12:04 01/20/17 17:55 01/21/17 00:01 01/21/17 04:50 Bedside Glucose 77 95 74 White Blood Count 17.7 H Red Blood Count 3.25 L Hemoglobin 9.9 L Hematocrit 31.4 L Mean Corpuscular Volume 96.6 Mean Corpuscular Hemoglobin 30.5 Mean Corpuscular Hemoglobin Concent 31.5 L Red Cell Distribution Width 22.2 H Platelet Count 66 L Mean Platelet Volume Neutrophils % 89.9 H Lymphocytes % 4.1 L Monocytes % 4.8 Eosinophils % 0.2 Basophils % 0.3 Nucleated Red Blood Cells % 0.0 Neutrophils # 15.9 H Lymphocytes # 0.7 L Monocytes # 0.9 Eosinophils # 0.0 Basophils # 0.1 Nucleated Red Blood Cells # 0.0 Sodium Level 146 H Potassium Level 4.3 Chloride Level 106 Carbon Dioxide Level 26 Anion Gap 18 H Blood Urea Nitrogen 44 H Creatinine 2.78 H Glucose Level 51 #L Calcium Level 8.2 L Phosphorus Level 3.5 Magnesium Level 2.1 Test 01/21/17 05:53 01/21/17 06:00 01/21/17 06:21 Bedside Glucose 60 L 125 Random Vancomycin Level 11.4 Medications Medications Current Medications Ondansetron HCl (Zofran Tab) 4 mg Q6H PRN PO NAUSEA AND/OR VOMITING; Start at 09:00 Acetaminophen (Tylenol Liquid) 650 mg Q6H PRN PO PAIN LEVEL 1-3 OR FEVER; Start 01/18/17 at 09:00 Acetaminophen/ Hydrocodone Bitart ([place] (5/325)) 1 tab Q6H PRN PO PAIN LEVEL 4 -6; Start 01/18/17 at 09:00 Miscellaneous Information 1 ea NOTE XX ; Start 01/18/17 at 19:00 Glucose (Glutose) 15 gm Q15M PRN PO DECREASED GLUCOSE; Start 01/18/17 at 19:00 Glucose (Glutose) 22.5 gm Q15M PRN PO DECREASED GLUCOSE; Start 01/18/17 at 19: 00 Dextrose (D50w Syringe) 25 ml Q15M PRN IV DECREASED GLUCOSE Last administered on 01/21/17 05:57; Admin Dose 25 ML; Start 01/18/17 at 19:00 Dextrose (D50w Syringe) 50 ml Q15M PRN IV DECREASED GLUCOSE; Start 01/18/17 at 19:00 Glucagon (Glucagen) 1 mg Q15M PRN IM DECREASED GLUCOSE; Start 01/18/17 at 19:00 Glucose 15 gm 15 gm Q15M PRN BUCCAL DECREASED GLUCOSE; Start 01/18/17 at 19:00 Dopamine HCl/ Dextrose 250 ml @ 5.25 mls/hr TITRATE IV Last administered on 15:33; Admin Dose 10.5 MLS/HR; Start 01/18/17 at 19:00 Norepinephrine/ Dextrose (Levophed/D5W) 250 ml @ 0.46 mls/hr TITRATE IV Last administered on 01/19/17 20:37; Admin Dose 1.87 MLS/HR; Start 01/18/17 at 19:00 Famotidine (Pepcid Iv) 20 mg DAILY IV Last administered on 01/21/17 08:56; Admin Dose 20 MG; Start 01/19/17 at 09:00 Acetaminophen (Tylenol Supp) 650 mg Q4H PRN [place] TEMP > 37C; Start 01/18/17 at 20 :00 Acetaminophen (Tylenol Liquid) 650 mg Q4H PRN PO TEMP > 37C; Start 01/18/17 at 20:00 Meperidine HCl (Demerol) 12.5 mg Q4H PRN IV POST OPERATIVE SHIVERING; Start at 20:00 Meperidine HCl (Demerol) 25 mg Q4H PRN IV POST OPERATIVE SHIVERING; Start 01/18 at 20:00 Eye Lubricant (Akwa Oint) 1 applic Q6 BOTH EYES Last administered on 01/21/17 05:51; Admin Dose 1 APPLIC; Start 01/18/17 at 20:00 Eye Lubricant 2 drop 2 drop Q6 BOTH EYES Last administered on 01/21/17 05:51; Admin Dose 2 DROP; Start 01/19/17 at 00:00 Cefepime HCl 50 ml @ 100 mls/hr Q24H IVPB Last administered on 01/20/17 10:34 ; Admin Dose 100 MLS/HR; Start 01/19/17 at 11:00 Vecuronium [place]/Dextrose (Norcuron/D5W) 100 ml @ 3.72 mls/hr Q24H IV Last administered on 01/19/17 12:10; Admin Dose 3.72 MLS/HR; Start 01/19/17 at 12:10 Lorazepam (Ativan) 2 mg Q2H PRN IV SEIZURES Last administered on 01/20/17 06: 25; Admin Dose 2 MG; Start 01/19/17 at 18:00 Insulin Aspart (Adult SC Insulin - Mild Algorithm)... Q6 SC ; Start 01/20/17 at 00:00 Valproate Sodium 500 mg/Sodium Chloride 55 ml @ 55 mls/hr Q4H PRN IVPB SEIZURES ; Start 01/19/17 at 20:00 Dextrose/Sodium Chloride 1,000 ml @ 50 mls/hr Q20H IV Last administered on 05:57; Admin Dose 50 MLS/HR; Start 01/19/17 at 20:30 Levetiracetam 100 ml @ 400 mls/hr Q12 IVPB Last administered on 01/21/17 08: 53; Admin Dose 400 MLS/HR; Start 01/20/17 at 21:00 Midazolam HCl 50 ml @ 1 mls/hr TITRATE IV Last administered on 01/20/17 20:44 ; Admin Dose 2 MLS/HR; Start 01/20/17 at 10:30 Levofloxacin/ Dextrose 100 ml @ 100 mls/hr Q48H IVPB ; Start 01/22/17 at 20:00 Vancomycin HCl (Vancocin) 250 ml @ 125 mls/hr 10 IVPB Last administered on 09:50; Admin Dose 125 MLS/HR; Start 01/21/17 at 10:00; Stop 01/21/17 at 11:59 SILVERIO MCMAHAN Jan 21, 2017 11:07
--- NOTE | 2017-01-21 12:06 | RADRPT ---
PROCEDURE: Chest 1 views. CLINICAL INDICATION: Shortness of breath TECHNIQUE: AP views of the chest was obtained. COMPARISON: Yesterday FINDINGS: The heart is large. Endotracheal tube is stable. Left-sided dialysis catheter is unchanged. Right- sided central line is stable. Median sternotomy wires and replacement heart valve are unchanged. C entral pulmonary vascular congestion and interstitial prominence in both lungs is observed. Right l ower lobe infiltrates and small right pleural effusion have decreased. Moderate residual remains. Retrocardiac opacity stable. Osseous structures are unchanged. IMPRESSION: Cardiomegaly . Central pulmonary vascular congestion and interstitial prominence in both lungs. Interval decrease in right lower lobe infiltrates. Moderate residual combined small pleural effusio n remains. Stable retrocardiac opacity that may reflect left lower lobe atelectasis or infiltrate combined with small pleural effusion. RPTAT: AA .Harsh Koenig MD, Date Time Electronically viewed and signed by .Harsh Koenig MD, on 01/21/2017 12:05 .P/
[2017-01-21] MEDS: CEFEPIME 1GM/50 ML IVPB SCH (12:55)
--- NOTE | 2017-01-21 13:48 | RADRPT ---
Vent Rate: 47 bpm RR Interval: 0 msec [place] Interval: 0 msec QRS Duration: 152 msec QT Interval: 744 msec QTC Interval: 658 msec P-R-T [place]: 0 - -35 - 83 degrees Atrial fibrillation with slow ventricular response Left axis deviation Left ventricular hypertrophy with QRS widening Abnormal ECG Electronically Signed By: Jose De Jesus Pacheco [id number]
--- NOTE | 2017-01-21 13:49 | RADRPT ---
Vent Rate: 84 bpm RR Interval: 0 msec [place] Interval: 0 msec QRS Duration: 134 msec QT Interval: 486 msec QTC Interval: 574 msec P-R-T [place]: 0 - -18 - 143 degrees Atrial fibrillation Nonspecific intraventricular block T wave abnormality, consider lateral ischemia or digitalis effect Abnormal ECG Electronically Signed By: Jose De Jesus Pacheco [id number]
--- NOTE | 2017-01-21 13:51 | RADRPT ---
Vent Rate: 87 bpm RR Interval: 0 msec [place] Interval: 0 msec QRS Duration: 128 msec QT Interval: 468 msec QTC Interval: 563 msec P-R-T [place]: 0 - -27 - 0 degrees Atrial fibrillation Nonspecific intraventricular block T wave abnormality, consider lateral ischemia or digitalis effect Abnormal ECG Electronically Signed By: Jose De Jesus Pacheco [id number]
--- NOTE | 2017-01-21 20:55 | PN ---
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 For now from a urological standpoint we will just leave him alone pending this other medical problems to be resolved Patient is encephalopathic Problems: Subjective 24 Hr Interval Summary Free Text/Dictation Patient is on respirator unresponsive and family at bedside Constitutional: other (Patient is on respirator and appears to be very sick and encephalopathic) Genitourinary: other (Garcia catheter in place not draining anything, this morning it had some blood in it) Exam/Review of Systems Vital Signs Vitals Vital Signs Date Time Temp Pulse Resp B/P Pulse Ox O2 Delivery O2 Flow Rate FiO2 01/21/17 18:15 68 20 121/45 100 Mechanical Ventilator 01/21/17 17:25 60 01/21/17 16:00 98.0 Intake and Output 01/20/17 01/20/17 01/21/17 15:00 23:00 07:00 Intake Total 398.97 ml 1149.44 ml 466.4 ml Output Total 2650 ml 0 ml Balance 398.97 ml -1500.56 ml 466.4 ml Exam Constitutional: other (Patient on respirator and unresponsive) Respiratory: other (On a ventilator) Genitourinary - Male: other (Garcia catheter in place) Results Result Diagram: 01/21/17 0450 01/21/17 0450 Results 24 hrs Laboratory Tests Test 01/21/17 00:01 01/21/17 04:50 01/21/17 05:53 01/21/17 06:00 Bedside Glucose 74 60 L White Blood Count 17.7 H Red Blood Count 3.25 L Hemoglobin 9.9 L Hematocrit 31.4 L Mean Corpuscular Volume 96.6 Mean Corpuscular Hemoglobin 30.5 Mean Corpuscular Hemoglobin Concent 31.5 L Red Cell Distribution Width 22.2 H Platelet Count 66 L Mean Platelet Volume Neutrophils % 89.9 H Lymphocytes % 4.1 L Monocytes % 4.8 Eosinophils % 0.2 Basophils % 0.3 Nucleated Red Blood Cells % 0.0 Neutrophils # 15.9 H Lymphocytes # 0.7 L Monocytes # 0.9 Eosinophils # 0.0 Basophils # 0.1 Nucleated Red Blood Cells # 0.0 Sodium Level 146 H Potassium Level 4.3 Chloride Level 106 Carbon Dioxide Level 26 Anion Gap 18 H Blood Urea Nitrogen 44 H Creatinine 2.78 H Glucose Level 51 #L Calcium Level 8.2 L Phosphorus Level 3.5 Magnesium Level 2.1 Random Vancomycin Level 11.4 Test 01/21/17 06:21 01/21/17 13:06 01/21/17 13:34 01/21/17 13:54 Bedside Glucose 125 61 L 105 113 Test 01/21/17 17:40 Bedside Glucose 102 Medications Medications Current Medications Ondansetron HCl (Zofran Tab) 4 mg Q6H PRN PO NAUSEA AND/OR VOMITING; Start at 09:00 Acetaminophen (Tylenol Liquid) 650 mg Q6H PRN PO PAIN LEVEL 1-3 OR FEVER; Start 01/18/17 at 09:00 Acetaminophen/ Hydrocodone Bitart ([place] (5/325)) 1 tab Q6H PRN PO PAIN LEVEL 4 -6; Start 01/18/17 at 09:00 Miscellaneous Information 1 ea NOTE XX ; Start 01/18/17 at 19:00 Glucose (Glutose) 15 gm Q15M PRN PO DECREASED GLUCOSE; Start 01/18/17 at 19:00 Glucose (Glutose) 22.5 gm Q15M PRN PO DECREASED GLUCOSE; Start 01/18/17 at 19: 00 Dextrose (D50w Syringe) 25 ml Q15M PRN IV DECREASED GLUCOSE Last administered on 01/21/17t 13:10; Admin Dose 25 ML; Start 01/18/17 at 19:00 Dextrose (D50w Syringe) 50 ml Q15M PRN IV DECREASED GLUCOSE; Start 01/18/17 at 19:00 Glucagon (Glucagen) 1 mg Q15M PRN IM DECREASED GLUCOSE; Start 01/18/17 at 19:00 Glucose 15 gm 15 gm Q15M PRN BUCCAL DECREASED GLUCOSE; Start 01/18/17 at 19:00 Dopamine HCl/ Dextrose 250 ml @ 5.25 mls/hr TITRATE IV Last administered on 15:33; Admin Dose 10.5 MLS/HR; Start 01/18/17 at 19:00 Norepinephrine/ Dextrose (Levophed/D5W) 250 ml @ 0.46 mls/hr TITRATE IV Last administered on 01/19/17 20:37; Admin Dose 1.87 MLS/HR; Start 01/18/17 at 19:00 Famotidine (Pepcid Iv) 20 mg DAILY IV Last administered on 01/21/17 08:56; Admin Dose 20 MG; Start 01/19/17 at 09:00 Acetaminophen (Tylenol Supp) 650 mg Q4H PRN [place] TEMP > 37C; Start 01/18/17 at 20 :00 Acetaminophen (Tylenol Liquid) 650 mg Q4H PRN PO TEMP > 37C; Start 01/18/17 at 20:00 Meperidine HCl (Demerol) 12.5 mg Q4H PRN IV POST OPERATIVE SHIVERING; Start at 20:00 Meperidine HCl (Demerol) 25 mg Q4H PRN IV POST OPERATIVE SHIVERING; Start 01/18 at 20:00 Eye Lubricant (Akwa Oint) 1 applic Q6 BOTH EYES Last administered on 01/21/17 17:34; Admin Dose 1 APPLIC; Start 01/18/17 at 20:00 Eye Lubricant 2 drop 2 drop Q6 BOTH EYES Last administered on 01/21/17 17:34; Admin Dose 2 DROP; Start 01/19/17 at 00:00 Cefepime HCl (Maxipime 1gm/50 ml (Pmx)) 50 ml @ 100 mls/hr Q24H IVPB Last administered on 01/21/17 12:55; Admin Dose 100 MLS/HR; Start 01/19/17 at 11:00 Lorazepam (Ativan) 2 mg Q2H PRN IV SEIZURES Last administered on 01/20/17 06: 25; Admin Dose 2 MG; Start 01/19/17 at 18:00 Insulin Aspart (Adult SC Insulin - Mild Algorithm)... Q6 SC ; Start 01/20/17 at 00:00 Valproate Sodium 500 mg/Sodium Chloride 55 ml @ 55 mls/hr Q4H PRN IVPB SEIZURES ; Start 01/19/17 at 20:00 Dextrose/Sodium Chloride 1,000 ml @ 50 mls/hr Q20H IV Last administered on 05:57; Admin Dose 50 MLS/HR; Start 01/19/17 at 20:30 Levetiracetam 100 ml @ 400 mls/hr Q12 IVPB Last administered on 01/21/17 08: 53; Admin Dose 400 MLS/HR; Start 01/20/17 at 21:00 Midazolam HCl 50 ml @ 1 mls/hr TITRATE IV Last administered on 01/20/17 20:44 ; Admin Dose 2 MLS/HR; Start 01/20/17 at 10:30 Levofloxacin/ Dextrose (Levaquin 500mg/ D5W 100 ml (Pmx)) 100 ml @ 100 mls/hr Q48H IVPB ; Start 01/22/17 at 20:00 IVIS MARTINEZ MD Jan 21, 2017 20:55
[2017-01-21] MEDS: MIDAZOLAM (DRIP) 50 mg/50 mL 50 ML IV SCH (22:33)
[2017-01-22] VITALS (47 sets, daily range): BP systolic 53–121; BP diastolic 28–48; PULSE 0–72; RESP 20
[2017-01-22] MEDS: OCULAR LUBRICANT 3.5 GM OPH OINT BOTH EYES SCH ×3 (00:52→12:52)
[2017-01-22] MEDS: ARTIFICIAL TEARS 15 ML OPH BOTH EYES SCH ×3 (00:52→12:52)
[2017-01-22] MEDS: DEXTROSE 5%-0.45% NACL 1,000 ML IV SCH (01:32)
[2017-01-22] MEDS: PROPOFOL 100 ML IV SCH (01:37)
[2017-01-22] MEDS: DEXTROSE 50% 50 ML SYRINGE IV PRN (05:16)
[2017-01-22] MEDS: Insulin NOVOLOG SS MILD Algorithm (NPO/TPN/ENTERAL FEEDS) SC SCH ×3 (05:17→12:00)
[2017-01-22] MEDS ORDERED: DEXTROSE 10% 1,000 ML IV SCH (05:30)
[2017-01-22 06:06] LABS: ADD SCAN DIFF NO
[2017-01-22 06:19] LABS: ABNORMAL IP MESSAGE 1; BASOPHIL # 0.1 10^3/ul (0.0-0.1); BASOPHILS % 0.3 % (0.0-2.0); EOSINOPHILS # 0.1 10^3/ul (0.0-0.5); EOSINOPHILS % 0.6 % (0.0-7.0); HEMATOCRIT 29.9 % (42.0-52.0); HEMOGLOBIN 9.3 g/dl (14.0-18.0); LYMPHOCYTES # 0.4 10^3/ul (0.8-2.9); LYMPHOCYTES % 2.6 % (15.0-51.0); MEAN CORPUSCULAR HEMOGLOBIN 30.3 pg (29.0-33.0); MEAN CORPUSCULAR HGB CONC 31.1 g/dl (32.0-37.0); MEAN CORPUSCULAR VOLUME 97.4 fl (82.0-101.0); MONOCYTE # 0.7 10^3/ul (0.3-0.9); MONOCYTES % 4.2 % (0.0-11.0); NEUTROPHIL # 14.9 10^3/ul (1.6-7.5); NEUTROPHILS % 90.5 % (39.0-77.0); RED BLOOD COUNT 3.07 10^6/ul (4.70-6.10); RED CELL DISTRIBUTION WIDTH 21.7 % (11.5-14.5); WHITE BLOOD COUNT 16.5 10^3/ul (4.8-10.8)
[2017-01-22 06:32] LABS: PLATELET COUNT 41 10^3/UL (140-415)
[2017-01-22 07:16] LABS: CREATININE 3.2 mg/dl (0.61-1.24); PHOSPHORUS 4.7 mg/dl (2.5-4.9); POTASSIUM 4.3 mmol/L (3.5-5.1)
[2017-01-22] MEDS ORDERED: NORepinephrine 8MG/250 ML (PMX 250 ML ONE (07:56)
[2017-01-22] MEDS ORDERED: NORepinephrine 8MG/250 ML (PMX 250 ML IV SCH (07:59)
--- NOTE | 2017-01-22 08:43 | CONS ---
Date/Time of Note Date/Time of Note DATE: 01/22/17 TIME: 08:39 Assessment/Plan Assessment/Plan Chief Complaint/Hosp Course VF cardiac arrest: He did not have CAD as of 2008 but certainly this could have changed. Trops only mildly elevated to 0.27. EF preserved. Doubt CAD related. May have scar related VT/VF from prior cardiac surgeries. Will still need a cath if regains mentation. ?MMVT: first EKG is concerning for VT as different morphology. No recurrence. NSTEMI: mild trop elevation, type II in setting of arrest. EF preserved and no WMA Acute on chronic diastolic heart failure: mild Mechanical AVR 2007 and 2008: apparently not on coumadin due to bleeding. He is autoanticoagulated at this time. Echo shows acceptable gradients across valve but with possible mod-severe paravalvular leak. If mental status improves, may need a CARITO for better assessment. Cultures with GNR ESRD on HD Liver cirrhosis from presumed alcohol Thrombocytopenia Coagulopathy: INR >2 ?Seizures -hold off on ASA for now as suspicion for CAD is still low, thrombocytopenic and coagulopathic -will need CARITO, cardiac cath, ICD if mentation improves -neuro eval and hopefully can stop sedation and use antiepileptics instead to see if he regains consciousness Problems: Consultation Date/Type/Reason Admit Date/Time Jan 18, 2017 at 09:01 Initial Consult Date 01/18/17 Type of Consultation: Cardiology Referring Provider: MAGALI FROST MD 24 HR Interval Summary Free Text/Dictation No o/n events. BP low this am. Remains sedated but apparently EEG confirmed seizures Exam/Review of Systems Vital Signs Vitals Vital Signs Date Time Temp Pulse Resp B/P Pulse Ox O2 Delivery O2 Flow Rate FiO2 01/22/17 06:30 63 20 92/40 100 Mechanical Ventilator 01/22/17 05:00 50 01/22/17 04:00 97.7 Intake and Output 01/21/17 01/21/17 01/22/17 15:00 23:00 07:00 Intake Total 853.9 ml 562.4 ml 391.5 ml Output Total 0 ml 0 ml 0 ml Balance 853.9 ml 562.4 ml 391.5 ml Exam Constitutional: No alert, No distress ENMT: intubated Neck: No jvd Respiratory: diminished breath sounds, No clear to auscultation Cardiovascular: diastolic murmur, edema (trace), regular rate and rhythm, No systolic murmur Gastrointestinal: non-tender, soft Neurological: No nl mental status Results Result Diagram: 01/22/17 0510 01/22/17 0510 Results 24 hrs Laboratory Tests Test 01/21/17 13:06 01/21/17 13:34 01/21/17 13:54 01/21/17 17:40 Bedside Glucose 61 L 105 113 102 Test 01/22/17 00:51 01/22/17 00:57 01/22/17 01:20 01/22/17 01:32 Bedside Glucose 41 *L 112 106 Glucose Level 44 *L Test 01/22/17 05:10 01/22/17 05:11 01/22/17 05:33 01/22/17 05:46 White Blood Count 16.5 H Red Blood Count 3.07 L Hemoglobin 9.3 L Hematocrit 29.9 L Mean Corpuscular Volume 97.4 Mean Corpuscular Hemoglobin 30.3 Mean Corpuscular Hemoglobin Concent 31.1 L Red Cell Distribution Width 21.7 H Platelet Count 41 #L Mean Platelet Volume Neutrophils % 90.5 H Lymphocytes % 2.6 L Monocytes % 4.2 Eosinophils % 0.6 Basophils % 0.3 Nucleated Red Blood Cells % 0.0 Neutrophils # 14.9 H Lymphocytes # 0.4 L Monocytes # 0.7 Eosinophils # 0.1 Basophils # 0.1 Nucleated Red Blood Cells # 0.0 Sodium Level 140 Potassium Level 4.3 Chloride Level 105 Carbon Dioxide Level 25 Anion Gap 14 Blood Urea Nitrogen 60 H Creatinine 3.20 H Glucose Level 56 #L Calcium Level 8.0 L Phosphorus Level 4.7 Magnesium Level 2.0 Bedside Glucose 69 L 104 99 Medications Medications Current Medications Ondansetron HCl (Zofran Tab) 4 mg Q6H PRN PO NAUSEA AND/OR VOMITING; Start at 09:00 Acetaminophen (Tylenol Liquid) 650 mg Q6H PRN PO PAIN LEVEL 1-3 OR FEVER; Start 01/18/17 at 09:00 Acetaminophen/ Hydrocodone Bitart ([place] (5/325)) 1 tab Q6H PRN PO PAIN LEVEL 4 -6; Start 01/18/17 at 09:00 Miscellaneous Information 1 ea NOTE XX ; Start 01/18/17 at 19:00 Glucose (Glutose) 15 gm Q15M PRN PO DECREASED GLUCOSE; Start 01/18/17 at 19:00 Glucose (Glutose) 22.5 gm Q15M PRN PO DECREASED GLUCOSE; Start 01/18/17 at 19: 00 Dextrose (D50w Syringe) 25 ml Q15M PRN IV DECREASED GLUCOSE Last administered on 01/22/17 05:16; Admin Dose 25 ML; Start 01/18/17 at 19:00 Dextrose (D50w Syringe) 50 ml Q15M PRN IV DECREASED GLUCOSE Last administered on 01/22/17 00:58; Admin Dose 50 ML; Start 01/18/17 at 19:00 Glucagon (Glucagen) 1 mg Q15M PRN IM DECREASED GLUCOSE; Start 01/18/17 at 19:00 Glucose 15 gm 15 gm Q15M PRN BUCCAL DECREASED GLUCOSE; Start 01/18/17 at 19:00 Dopamine HCl/ Dextrose 250 ml @ 5.25 mls/hr TITRATE IV Last administered on 15:33; Admin Dose 10.5 MLS/HR; Start 01/18/17 at 19:00 Norepinephrine/ Dextrose (Levophed/D5W) 250 ml @ 0.46 mls/hr TITRATE IV Last administered on 01/19/17 20:37; Admin Dose 1.87 MLS/HR; Start 01/18/17 at 19:00 Famotidine (Pepcid Iv) 20 mg DAILY IV Last administered on 01/21/17 08:56; Admin Dose 20 MG; Start 01/19/17 at 09:00 Acetaminophen (Tylenol Supp) 650 mg Q4H PRN [place] TEMP > 37C; Start 01/18/17 at 20 :00 Acetaminophen (Tylenol Liquid) 650 mg Q4H PRN PO TEMP > 37C; Start 01/18/17 at 20:00 Meperidine HCl (Demerol) 12.5 mg Q4H PRN IV POST OPERATIVE SHIVERING; Start at 20:00 Meperidine HCl (Demerol) 25 mg Q4H PRN IV POST OPERATIVE SHIVERING; Start 01/18 at 20:00 Eye Lubricant (Akwa Oint) 1 applic Q6 BOTH EYES Last administered on 01/22/17 05:16; Admin Dose 1 APPLIC; Start 01/18/17 at 20:00 Eye Lubricant 2 drop 2 drop Q6 BOTH EYES Last administered on 01/22/17 05:17; Admin Dose 2 DROP; Start 01/19/17 at 00:00 Cefepime HCl (Maxipime 1gm/50 ml (Pmx)) 50 ml @ 100 mls/hr Q24H IVPB Last administered on 01/21/17 12:55; Admin Dose 100 MLS/HR; Start 01/19/17 at 11:00 Lorazepam (Ativan) 2 mg Q2H PRN IV SEIZURES Last administered on 01/20/17 06: 25; Admin Dose 2 MG; Start 01/19/17 at 18:00 Insulin Aspart (Adult SC Insulin - Mild Algorithm)... Q6 SC ; Start 01/20/17 at 00:00 Valproate Sodium 500 mg/Sodium Chloride 55 ml @ 55 mls/hr Q4H PRN IVPB SEIZURES ; Start 01/19/17 at 20:00 Levetiracetam 100 ml @ 400 mls/hr Q12 IVPB Last administered on 01/21/17 21: 54; Admin Dose 400 MLS/HR; Start 01/20/17 at 21:00 Midazolam HCl 50 ml @ 1 mls/hr TITRATE IV Last administered on 01/21/17 22:33 ; Admin Dose 2 MLS/HR; Start 01/20/17 at 10:30 Levofloxacin/ Dextrose 100 ml @ 100 mls/hr Q48H IVPB ; Start 01/22/17 at 20:00 Dextrose (D10w) 1,000 ml @ 50 mls/hr Q20H IV Last administered on 01/22/17 05 :47; Admin Dose 50 MLS/HR; Start 01/22/17 at 05:30 SILVERIO MCMAHAN Jan 22, 2017 08:42
--- NOTE | 2017-01-22 09:19 | PN ---
Date/Time of Note Date/Time of Note DATE: 01/22/17 TIME: 09:15 Assessment/Plan VTE Prophylaxis VTE Prophylaxis Intervention: SCD's Lines/Catheters IV Catheter Type (from Nrsg): Central Line (For medications and intravenous fluid) Central line still needed: Yes Urinary Cath still in place: Yes Reason Cath still needed: urinary retention Assessment/Plan Chief Complaint/Hosp Course Assessment/Plan: 66 yo M with pmhx cirrhosis, ESRD on HD, h/o AVR previously on Coumadin admitted following VFib arrest. #VFib arrest with ROSC: suspect 2/2 underlying heart disease/CAD with scar tissue into cardiac electrical system; no STEMI on EKG, hypothermia protocol complete. -cardiology on consult - f/u rec's, monitor for now -trending troponin per cardiology rec -pulm following -Follow-up EEG results (apparentlt another one ordered for today by Neuro team), f/u Neuro rec's -Continue anti-sz meds. #ESRD on HD: nephrology cs - f/u their rec's regarding HD #cirrhosis: judicious fluids - monitor plt levels as well (still low, 66 ->41) #h/o AVR previously on Coumadin -cardiology following - monitor #?aspiration pna: empiric abx #hematuria - per family, possible Hx of bladder ca in the past. Appreciate urology consult, monitor for now DVT prophx: SQH and SCDs Follow-up recommendations from palliative consult team as well. Pt made DNR yesterday by family, awaiting possible family conference in next 1-2 days once final EEG results are back. Critical care time: 45 minutes Problems: Subjective 24 Hr Interval Summary Free Text/Dictation No sz overnight. Started on pressor this AM. Still intubated. Exam/Review of Systems Vital Signs Vitals Vital Signs Date Time Temp Pulse Resp B/P Pulse Ox O2 Delivery O2 Flow Rate FiO2 01/22/17 06:30 63 20 92/40 100 Mechanical Ventilator 01/22/17 05:00 50 01/22/17 04:00 97.7 Intake and Output 01/21/17 01/21/17 01/22/17 14:59 22:59 06:59 Intake Total 853.9 ml 562.4 ml 449.8 ml Output Total 0 ml 0 ml 0 ml Balance 853.9 ml 562.4 ml 449.8 ml Exam intubated and sedated lungs clear no mrg nL BS, NT, ND, soft HD catheter c/d/i no le edema Results Result Diagram: 01/22/17 0510 01/22/17 0510 Results 24 hrs Laboratory Tests Test 01/21/17 13:06 01/21/17 13:34 01/21/17 13:54 01/21/17 17:40 Bedside Glucose 61 L 105 113 102 Test 01/22/17 00:51 01/22/17 00:57 01/22/17 01:20 01/22/17 01:32 Bedside Glucose 41 *L 112 106 Glucose Level 44 *L Test 01/22/17 05:10 01/22/17 05:11 01/22/17 05:33 01/22/17 05:46 White Blood Count 16.5 H Red Blood Count 3.07 L Hemoglobin 9.3 L Hematocrit 29.9 L Mean Corpuscular Volume 97.4 Mean Corpuscular Hemoglobin 30.3 Mean Corpuscular Hemoglobin Concent 31.1 L Red Cell Distribution Width 21.7 H Platelet Count 41 #L Mean Platelet Volume Neutrophils % 90.5 H Lymphocytes % 2.6 L Monocytes % 4.2 Eosinophils % 0.6 Basophils % 0.3 Nucleated Red Blood Cells % 0.0 Neutrophils # 14.9 H Lymphocytes # 0.4 L Monocytes # 0.7 Eosinophils # 0.1 Basophils # 0.1 Nucleated Red Blood Cells # 0.0 Sodium Level 140 Potassium Level 4.3 Chloride Level 105 Carbon Dioxide Level 25 Anion Gap 14 Blood Urea Nitrogen 60 H Creatinine 3.20 H Glucose Level 56 #L Calcium Level 8.0 L Phosphorus Level 4.7 Magnesium Level 2.0 Bedside Glucose 69 L 104 99 Medications Medications Current Medications Ondansetron HCl (Zofran Tab) 4 mg Q6H PRN PO NAUSEA AND/OR VOMITING; Start at 09:00 Acetaminophen (Tylenol Liquid) 650 mg Q6H PRN PO PAIN LEVEL 1-3 OR FEVER; Start 01/18/17 at 09:00 Acetaminophen/ Hydrocodone Bitart ([place] (5/325)) 1 tab Q6H PRN PO PAIN LEVEL 4 -6; Start 01/18/17 at 09:00 Miscellaneous Information 1 ea NOTE XX ; Start 01/18/17 at 19:00 Glucose (Glutose) 15 gm Q15M PRN PO DECREASED GLUCOSE; Start 01/18/17 at 19:00 Glucose (Glutose) 22.5 gm Q15M PRN PO DECREASED GLUCOSE; Start 01/18/17 at 19: 00 Dextrose (D50w Syringe) 25 ml Q15M PRN IV DECREASED GLUCOSE Last administered on 01/22/17 05:16; Admin Dose 25 ML; Start 01/18/17 at 19:00 Dextrose (D50w Syringe) 50 ml Q15M PRN IV DECREASED GLUCOSE Last administered on 01/22/17 00:58; Admin Dose 50 ML; Start 01/18/17 at 19:00 Glucagon (Glucagen) 1 mg Q15M PRN IM DECREASED GLUCOSE; Start 01/18/17 at 19:00 Glucose 15 gm 15 gm Q15M PRN BUCCAL DECREASED GLUCOSE; Start 01/18/17 at 19:00 Dopamine HCl/ Dextrose 250 ml @ 5.25 mls/hr TITRATE IV Last administered on 15:33; Admin Dose 10.5 MLS/HR; Start 01/18/17 at 19:00 Norepinephrine/ Dextrose (Levophed/D5W) 250 ml @ 0.46 mls/hr TITRATE IV Last administered on 01/19/17 20:37; Admin Dose 1.87 MLS/HR; Start 01/18/17 at 19:00 Famotidine (Pepcid Iv) 20 mg DAILY IV Last administered on 01/21/17 08:56; Admin Dose 20 MG; Start 01/19/17 at 09:00 Acetaminophen (Tylenol Supp) 650 mg Q4H PRN NC TEMP > 37C; Start 01/18/17 at 20 :00 Acetaminophen (Tylenol Liquid) 650 mg Q4H PRN PO TEMP > 37C; Start 01/18/17 at 20:00 Meperidine HCl (Demerol) 12.5 mg Q4H PRN IV POST OPERATIVE SHIVERING; Start at 20:00 Meperidine HCl (Demerol) 25 mg Q4H PRN IV POST OPERATIVE SHIVERING; Start 01/18 at 20:00 Eye Lubricant ([place]wa Oint) 1 applic Q6 BOTH EYES Last administered on 01/22/17 05:16; Admin Dose 1 APPLIC; Start 01/18/17 at 20:00 Eye Lubricant 2 drop 2 drop Q6 BOTH EYES Last administered on 01/22/17 05:17; Admin Dose 2 DROP; Start 01/19/17 at 00:00 Cefepime HCl (Maxipime 1gm/50 ml (Pmx)) 50 ml @ 100 mls/hr Q24H IVPB Last administered on 01/21/17 12:55; Admin Dose 100 MLS/HR; Start 01/19/17 at 11:00 Lorazepam (Ativan) 2 mg Q2H PRN IV SEIZURES Last administered on 01/20/17 06: 25; Admin Dose 2 MG; Start 01/19/17 at 18:00 Insulin Aspart (Adult SC Insulin - Mild Algorithm)... Q6 SC ; Start 01/20/17 at 00:00 Valproate Sodium 500 mg/Sodium Chloride 55 ml @ 55 mls/hr Q4H PRN IVPB SEIZURES ; Start 01/19/17 at 20:00 Levetiracetam 100 ml @ 400 mls/hr Q12 IVPB Last administered on 01/21/17 21: 54; Admin Dose 400 MLS/HR; Start 01/20/17 at 21:00 Midazolam HCl 50 ml @ 1 mls/hr TITRATE IV Last administered on 01/21/17 22:33 ; Admin Dose 2 MLS/HR; Start 01/20/17 at 10:30 Levofloxacin/ Dextrose 100 ml @ 100 mls/hr Q48H IVPB ; Start 01/22/17 at 20:00 Dextrose (D10w) 1,000 ml @ 50 mls/hr Q20H IV Last administered on 01/22/17 05 :47; Admin Dose 50 MLS/HR; Start 01/22/17 at 05:30 OSMAN SAMUEL Jan 22, 2017 09:19
[2017-01-22] MEDS: LEVETIRACETAM 1000 MG (PMX) 100 ML IVPB SCH (09:26)
[2017-01-22] MEDS: FAMOTIDINE 20 MG INJ IV SCH (09:26)
--- NOTE | 2017-01-22 10:56 | CONS ---
Date/Time of Note Date/Time of Note DATE: 01/22/17 TIME: 10:53 Consult Date/Type/Reason Admit Date/Time Jan 18, 2017 at 09:01 Initial Consult Date 01/18/17 Type of Consultation: Pulmonary ICU Ordering Provider: MAGALI FROST MD Subjective Remains somnolent on mechanical ventilation Evidence of seizure activity off sedation Objective Vital Signs Date Time Temp Pulse Resp B/P Pulse Ox O2 Delivery O2 Flow Rate FiO2 01/22/17 08:00 64 01/22/17 06:30 20 92/40 100 Mechanical Ventilator 01/22/17 05:00 50 01/22/17 04:00 97.7 Intake and Output 01/21/17 01/21/17 01/22/17 14:59 22:59 06:59 Intake Total 853.9 ml 562.4 ml 449.8 ml Output Total 0 ml 0 ml 0 ml Balance 853.9 ml 562.4 ml 449.8 ml Exam GENERAL: Chronically ill-appearing on immediate gentleman intubated on mechanical ventilation currently propofol and Versed VITAL SIGNS: per chart NECK: Supple. No JVD or lymphadenopathy. CARDIAC EXAM: S1, S2. No added sounds or murmurs. CHEST: clear bilaterally, No added sounds, rales or wheezes ABDOMEN: Soft, nontender. No guarding or rebound. EXTREMITIES: No cyanosis, clubbing or edema. NEUROLOGIC: unable to assess Results/Medications Result Diagram: 01/22/17 0510 01/22/17 0510 Results 24 hrs Laboratory Tests Test 01/21/17 13:06 01/21/17 13:34 01/21/17 13:54 01/21/17 17:40 Bedside Glucose 61 L 105 113 102 Test 01/22/17 00:51 01/22/17 00:57 01/22/17 01:20 01/22/17 01:32 Bedside Glucose 41 *L 112 106 Glucose Level 44 *L Test 01/22/17 05:10 01/22/17 05:11 01/22/17 05:33 01/22/17 05:46 White Blood Count 16.5 H Red Blood Count 3.07 L Hemoglobin 9.3 L Hematocrit 29.9 L Mean Corpuscular Volume 97.4 Mean Corpuscular Hemoglobin 30.3 Mean Corpuscular Hemoglobin Concent 31.1 L Red Cell Distribution Width 21.7 H Platelet Count 41 #L Mean Platelet Volume Neutrophils % 90.5 H Lymphocytes % 2.6 L Monocytes % 4.2 Eosinophils % 0.6 Basophils % 0.3 Nucleated Red Blood Cells % 0.0 Neutrophils # 14.9 H Lymphocytes # 0.4 L Monocytes # 0.7 Eosinophils # 0.1 Basophils # 0.1 Nucleated Red Blood Cells # 0.0 Sodium Level 140 Potassium Level 4.3 Chloride Level 105 Carbon Dioxide Level 25 Anion Gap 14 Blood Urea Nitrogen 60 H Creatinine 3.20 H Glucose Level 56 #L Calcium Level 8.0 L Phosphorus Level 4.7 Magnesium Level 2.0 Bedside Glucose 69 L 104 99 Medications Current Medications Ondansetron HCl (Zofran Tab) 4 mg Q6H PRN PO NAUSEA AND/OR VOMITING; Start at 09:00 Acetaminophen (Tylenol Liquid) 650 mg Q6H PRN PO PAIN LEVEL 1-3 OR FEVER; Start 01/18/17 at 09:00 Acetaminophen/ Hydrocodone Bitart ([place] (5/325)) 1 tab Q6H PRN PO PAIN LEVEL 4 -6; Start 01/18/17 at 09:00 Miscellaneous Information 1 ea NOTE XX ; Start 01/18/17 at 19:00 Glucose (Glutose) 15 gm Q15M PRN PO DECREASED GLUCOSE; Start 01/18/17 at 19:00 Glucose (Glutose) 22.5 gm Q15M PRN PO DECREASED GLUCOSE; Start 01/18/17 at 19: 00 Dextrose (D50w Syringe) 25 ml Q15M PRN IV DECREASED GLUCOSE Last administered on 01/22/17 05:16; Admin Dose 25 ML; Start 01/18/17 at 19:00 Dextrose (D50w Syringe) 50 ml Q15M PRN IV DECREASED GLUCOSE Last administered on 01/22/17 00:58; Admin Dose 50 ML; Start 01/18/17 at 19:00 Glucagon (Glucagen) 1 mg Q15M PRN IM DECREASED GLUCOSE; Start 01/18/17 at 19:00 Glucose 15 gm 15 gm Q15M PRN BUCCAL DECREASED GLUCOSE; Start 01/18/17 at 19:00 Dopamine HCl/ Dextrose 250 ml @ 5.25 mls/hr TITRATE IV Last administered on 15:33; Admin Dose 10.5 MLS/HR; Start 01/18/17 at 19:00 Norepinephrine/ Dextrose (Levophed/D5W) 250 ml @ 0.46 mls/hr TITRATE IV Last administered on 01/19/17 20:37; Admin Dose 1.87 MLS/HR; Start 01/18/17 at 19:00 Famotidine (Pepcid Iv) 20 mg DAILY IV Last administered on 01/22/17 09:26; Admin Dose 20 MG; Start 01/19/17 at 09:00 Acetaminophen (Tylenol Supp) 650 mg Q4H PRN NC TEMP > 37C; Start 01/18/17 at 20 :00 Acetaminophen (Tylenol Liquid) 650 mg Q4H PRN PO TEMP > 37C; Start 01/18/17 at 20:00 Meperidine HCl (Demerol) 12.5 mg Q4H PRN IV POST OPERATIVE SHIVERING; Start at 20:00 Meperidine HCl (Demerol) 25 mg Q4H PRN IV POST OPERATIVE SHIVERING; Start 01/18 at 20:00 Eye Lubricant (Akwa Oint) 1 applic Q6 BOTH EYES Last administered on 01/22/17 05:16; Admin Dose 1 APPLIC; Start 01/18/17 at 20:00 Eye Lubricant 2 drop 2 drop Q6 BOTH EYES Last administered on 01/22/17 05:17; Admin Dose 2 DROP; Start 01/19/17 at 00:00 Cefepime HCl (Maxipime 1gm/50 ml (Pmx)) 50 ml @ 100 mls/hr Q24H IVPB Last administered on 01/21/17 12:55; Admin Dose 100 MLS/HR; Start 01/19/17 at 11:00 Lorazepam (Ativan) 2 mg Q2H PRN IV SEIZURES Last administered on 01/20/17 06: 25; Admin Dose 2 MG; Start 01/19/17 at 18:00 Insulin Aspart (Adult SC Insulin - Mild Algorithm)... Q6 SC ; Start 01/20/17 at 00:00 Valproate Sodium 500 mg/Sodium Chloride 55 ml @ 55 mls/hr Q4H PRN IVPB SEIZURES ; Start 01/19/17 at 20:00 Levetiracetam 100 ml @ 400 mls/hr Q12 IVPB Last administered on 01/22/17 09: 26; Admin Dose 400 MLS/HR; Start 01/20/17 at 21:00 Midazolam HCl 50 ml @ 1 mls/hr TITRATE IV Last administered on 01/21/17 22:33 ; Admin Dose 2 MLS/HR; Start 01/20/17 at 10:30 Levofloxacin/ Dextrose 100 ml @ 100 mls/hr Q48H IVPB ; Start 01/22/17 at 20:00 Dextrose (D10w) 1,000 ml @ 50 mls/hr Q20H IV Last administered on 01/22/17 05 :47; Admin Dose 50 MLS/HR; Start 01/22/17 at 05:30 Assessment/Plan Chief Complaint/Hosp Course Assessment /plan 1. Cardiopulmonary arrest likely primary cardiac event. History of aortic valve replacement unclear with a history of ischemic heart disease. Currently not on anticoagulation. -Echocardiogram noted. -Cardiology recommendations 2. Hypothermia protocol following cardiopulmonary arrest. -Continue sedation for seizure management. -Insulin drip 3. Hypoxemic respiratory failure secondary to above -Continue mechanical ventilation -Bronchodilators -Increase minute ventilation if needed. 4. Likely aspiration pneumonia -Broad-spectrum antibiotics -Penicillin allergy currently on cefepime 5. Coagulopathy -History of excessive alcohol consumption 6. Encephalopathy, possible anoxic brain injury following cardiac arrest. Seizures secondary to anoxic brain injury -Status post hypothermia protocol -Anoxic brain seizures. Antiseizure medications, propofol and Versed may require Keppra -Neurology recommendations EEG noted -Long discussion with patient's family yesterday current condition is not consistent with patient's wishes regarding quality of life. If there is no hope for improvement family wish to withdraw life support. 7. End-stage renal failure on hemodialysis -Nephrology consultation -Hemodialysis as tolerated 8. DVT and GI prophylaxis Critical care time 40 minutes. On discussion with patient's daughters yesterday. Likely they will request terminal extubation today. Problems: AVIVA VILLEGAS MD, [facility] Jan 22, 2017 10:55
[2017-01-22] MEDS: CEFEPIME 1GM/50 ML IVPB SCH (11:45)
[2017-01-22] MEDS ORDERED: LORAZEPAM 2 MG INJ IV PRN (13:30)
--- NOTE | 2017-01-22 13:45 | SP ---
DATE OF SERVICE: 01/21/2017 HISTORY OF PRESENT ILLNESS: The patient is 66 years old, admitted to the hospital with cognitive impairment , hypoxia, respiratory failure, intubation. The patient on Keppra, midazolam, NovoLog, valproic acid, Ativan. EEG done using 10-20 examination. Findings showed bilateral independent PLEDs seen on both sides, independently . flat line in between No epileptiform discharge, some electromyelography events recorded Impression this is an abnormal electroencephalogram, showed periodically discharge bilaterally consistent with underlying PLEDs. and follow up EEG may be needed. Dictated By: Carlton Monique MD /mariel/alfonso /Document#: [id number] KIESHA
[2017-01-22] MEDS: morphine 2 MG INJ IV PRN ×2 (14:17→15:18)
--- NOTE | 2017-01-22 16:27 | DES ---
Date/Time of Note Date/Time of Note DATE: 01/22/17 TIME: 16:22 Discharge/ Summary Admission/Discharge Info Admit Date/Time Jan 18, 2017 at 09:01 Discharge Date/Time Final Diagnosis #VFib arrest with ROSC: suspect 2/2 underlying heart disease/CAD with scar tissue into cardiac electrical system; no STEMI on EKG, hypothermia protocol complete. #ESRD on HD #cirrhosis #h/o AVR previously on Coumadin #possible aspiration pna: empiric abx #hematuria Preliminary Cause of 1. respiratory distress (minutes) 2. cardiac arrest (days) Hospital Course 66 yo M with ESRD on HD, ?CAD sp CABG, h/o MVR, cirrhosis admitted following cardiac arrest. Pt with arrest this AM, EMS called. Pt in VFib at time of ER arrival. sp 2 rounds of epi, electric intervention, converted to AFib. No evidence of STEMI on serial EKGs. Patient was admitted to intensive care unit and placed on Hypothermia protocol following cardiopulmonary arrest. He was seen by multiple specialists during this hospital stay including cardiology, palliative care, renal, urology, pulmonary, and neurology teams. Patient was placed on broad-spectrum antibiotics for possible aspiration pneumonia. He also had seizure event, and had increases made to his antiseizure medications which help control his seizure episodes, as well as propofol.. EEG was performed, which showed epileptiform discharge bilaterally consistent with underlying PLEDs. There were strong clinical signs of possible anoxic brain injury. Patient also had an episode of hematuria, evaluated by urology team, just continuation of medical management was recommended. Eventually family decided given the patient's multiple comorbidities to make the patient DNR. After meeting with market intelligence consultant teams including pulmonary teams and palliative care teams, on January 22, 2017 patient's family proceeded with terminal extubation. Patient at 15:35 on January 22, 2017. Physical exam: General: Not alert, not oriented HEENT: Pupils fixed and dilated Respiratory: No breath sounds auscultated Cardiovascular: Heart sounds auscultated GI: No abdominal bowel sounds auscultated Neurologic: No movements, absent pulses Pending Labs/Cultures Laboratory Tests Test 01/21/17 17:40 01/22/17 00:51 01/22/17 00:57 01/22/17 01:20 Bedside Glucose 102mg/dL (70-220) 41mg/dL (70-220) 112mg/dL (70-220) Glucose Level 44mg/dl (70-220) Test 01/22/17 01:32 01/22/17 05:10 01/22/17 05:11 01/22/17 05:33 Bedside Glucose 106mg/dL (70-220) 69mg/dL (70-220) 104mg/dL (70-220) White Blood Count 16.510^3/ul (4.8-10.8) Red Blood Count 3.0710^6/ul (4.70-6.10) Hemoglobin 9.3g/dl (14.0-18.0) Hematocrit 29.9% (42.0-52.0) Mean Corpuscular Volume 97.4fl (82.0-101.0) Mean Corpuscular Hemoglobin 30.3pg (29.0-33.0) Mean Corpuscular Hemoglobin Concent 31.1g/dl (32.0-37.0) Red Cell Distribution Width 21.7% (11.5-14.5) Platelet Count 4110^3/UL (140-415) Mean Platelet Volume fl (7.4-10.4) Neutrophils % 90.5% (39.0-77.0) Lymphocytes % 2.6% (15.0-51.0) Monocytes % 4.2% (0.0-11.0) Eosinophils % 0.6% (0.0-7.0) Basophils % 0.3% (0.0-2.0) Nucleated Red Blood Cells % 0.0/100WBC (0.0-0.0) Neutrophils # 14.910^3/ul (1.6-7.5) Lymphocytes # 0.410^3/ul (0.8-2.9) Monocytes # 0.710^3/ul (0.3-0.9) Eosinophils # 0.110^3/ul (0.0-0.5) Basophils # 0.110^3/ul (0.0-0.1) Nucleated Red Blood Cells # 0.010^3/ul (0.0-0.0) Sodium Level 140mmol/L (135-144) Potassium Level 4.3mmol/L (3.5-5.1) Chloride Level 105mmol/L (97-110) Carbon Dioxide Level 25mmol/L (21-31) Anion Gap 14 (8-16) Blood Urea Nitrogen 60mg/dl (7-20) Creatinine 3.20mg/dl (0.61-1.24) Glucose Level 56mg/dl (70-220) Calcium Level 8.0mg/dl (8.4-10.2) Phosphorus Level 4.7mg/dl (2.5-4.9) Magnesium Level 2.0mg/dl (1.7-2.5) Test 01/22/17 05:46 Bedside Glucose 99mg/dL (70-220) OSMAN SAMUEL S. Jan 22, 2017 16:27 2.0mg/dl (1.7-2.5) Test 01/22/17 05:46 Bedside Glucose 99mg/dL (70-220) OSMAN SAMUEL S. Jan 22, 2017 16:27
[2017-01-22] MEDS ORDERED: LEVOFLOXACIN 500MG/D5W (PMX) 100 ML IVPB SCH (20:00)
== END 2017-01-22 15:35 | disposition expired | DRG 871 ==
LOC: E/R 07:01 → ICU 09:01
PROVIDERS: ADMIT Internal Medicine; ATTEND Internal Medicine
PROC: 5A1945Z Respiratory Ventilation, 24-96 Consecutive Hours (ICD-10-PCS; principal; 2017-01-18)
PROC: 0BH17EZ Insertion of Endotracheal Airway into Trachea, Via Natural or Artificial Opening (ICD-10-PCS; 2017-01-18)
PROC: 30233R1 Transfusion of Nonautologous Platelets into Peripheral Vein, Percutaneous Approach (ICD-10-PCS; 2017-01-18)
PROC: 5A1D60Z (ICD-10-PCS; 2017-01-18)
DX: A41.59 Other Gram-negative sepsis (principal); I21.4 Non-ST elevation (NSTEMI) myocardial infarction; I49.01 Ventricular fibrillation; J96.91 Respiratory failure, unspecified with hypoxia; R57.0 Cardiogenic shock; J69.0 Pneumonitis due to inhalation of food and vomit; G93.1 Anoxic brain damage, not elsewhere classified; N18.6 End stage renal disease; D68.8 Other specified coagulation defects; I50.33 Acute on chronic diastolic (congestive) heart failure; D68.9 Coagulation defect, unspecified; I13.2 Hypertensive heart and chronic kidney disease with heart failure and with stage 5 chronic kidney disease, or end stage renal disease; R64 Cachexia; Z99.2 Dependence on renal dialysis; Z95.1 Presence of aortocoronary bypass graft; Z95.2 Presence of prosthetic heart valve; Z68.21 Body mass index [BMI] 21.0-21.9, adult; E87.6 Hypokalemia; K70.30 Alcoholic cirrhosis of liver without ascites; D69.6 Thrombocytopenia, unspecified; Z72.0 Tobacco use; R31.9 Hematuria, unspecified; Z85.51 Personal history of malignant neoplasm of bladder; R56.9 Unspecified convulsions; Z66 Do not resuscitate
CPT/HCPCS: 31500; 36415; 36430; 36600; 70450; 71010; 80048; 80053; 80202; 80306; 82010; 82550; 82553; 82803; 82947; 82962; 83605; 83735; 84100; 84484; 85025; 85049; 85384; 85610; 85670; 85730; 86644; 86850; 86900; 86901; 87040; 87081; 90935; 93005; 93306; 94002; 94003; 94770; 95819; J0692; J1265; J1815; J1953; J1956; J2060; J2270; J3370; J3480; J7030; J7040; J7042; J7050; J7070; P9035